=== PATIENT | male | born 1955 | race Caucasian/White ===

== ENCOUNTER 2020-06-01 09:25 | Outpatient (REF) | payer MEDICARE, MEDICAID, SELFPAY ==
--- NOTE | 2020-06-01 09:35 | XR_ITS ---
EXAMINATION: XR CERVICAL SPINE CLINICAL INFORMATION: Chronic neck pain. COMPARISON: Cervical spine 08/23/2016 TECHNIQUE: 3 views of the cervical spine were obtained. FINDINGS: There is maintained cervical lordosis. The vertebral heights and alignment is normal. There is loss of C6-C7 disc height with ventral and posterior spondylosis. The disc heights are normal. No visible acute fracture, dislocation or subluxation seen. Mild bilateral narrowing of C4-C5 and C6-C7 neural foramina is noted. Mild bilateral facet joint hypertrophy slightly greater than right is noted from C3-C4 through C6-C7 disc levels. The prevertebral soft tissues are normal. XR/XR cervical spine 4V IMPRESSION: Generalized facet joint arthropathy mainly in the right side from C3-C4 through C6-C7 disc levels. There is bilateral narrowing of neural foramina. There are degenerative disc changes with spondylosis at C6-C7 disc level. These findings have significantly progressed since 2017. The neural foraminal narrowing is new. No acute fracture or dislocation seen.
== END 2020-06-01 09:26 | disposition home or self-care (01) ==
LOC: HO.XRAY 09:25
PROVIDERS: PCP Nurse Practitioner Family; Visit Provider Psychiatry & Neurology Neurology
DX: M54.2 Cervicalgia (principal)
CPT/HCPCS: 72050

== ENCOUNTER 2020-12-11 12:23 | Outpatient (REF) | payer MEDICARE, SELFPAY ==
--- NOTE | ~2020-12-11 | XR_ITS ---
EXAMINATION: XR KNEE, RIGHT CLINICAL INFORMATION: Pain right knee COMPARISON: None TECHNIQUE: Four views of the right knee. FINDINGS: Mild loss of tricompartment joint space with moderate superior patellar enthesophytes. There is mild suprapatellar joint effusion. No bony erosive changes, acute fracture or dislocation seen. XR/XR knee RT 4V IMPRESSION: Possible joint effusion. No visible acute fracture or dislocation seen. Moderate anterior superior patellar enthesophyte. No visible acute fracture or dislocation seen.
== END 2020-12-11 12:24 | disposition home or self-care (01) ==
LOC: HO.XRAY 12:23
PROVIDERS: PCP Family Medicine; Visit Provider Family Medicine
DX: M25.561 Pain in right knee (principal)
CPT/HCPCS: 73564

== ENCOUNTER 2021-01-25 10:09 | Emergency (ER) | payer MEDICARE, SELFPAY ==
--- NOTE | ~2021-01-25 | CT_ITS ---
EXAMINATION: CT ABDOMEN AND PELVIS WITHOUT CONTRAST CLINICAL INFORMATION: Abdominal pain. COMPARISON: None TECHNIQUE: Multidetector volumetric imaging was performed from the superior aspect of the liver through the pubic symphysis. Sagittal and coronal reformatted images were obtained on the technologist's workstation. This CT examination was performed using dose optimization techniques as appropriate, variously including the following: *Automated exposure control *Adjustment of mA and/or kV according to patient size (this includes techniques or standardized protocols for targeted exams where dose is matched to indication/reason for exam; i.e. extremities or head) *Use of iterative reconstruction technique DLP: 427 mGy-cm FINDINGS: LUNG BASES: The visualized lung bases are unremarkable. LIVER, GALLBLADDER, AND BILIARY TREE: The liver is normal in size, shape, and attenuation. There is a central calcification in the liver. No other focal hepatic lesion or biliary ductal dilatation is present. The gallbladder is unremarkable with no evidence of radiopaque gallstones, gallbladder wall thickening, or obvious pericholecystic inflammatory changes. PANCREAS: Unremarkable. SPLEEN: Unremarkable. ADRENAL GLANDS: Unremarkable. KIDNEYS AND URETERS: The kidneys are normal in size, shape, and attenuation. No hydronephrosis, hydroureter, or calculi seen. No perinephric stranding. BLADDER: The bladder is not optimally distended. There may be diffuse bladder wall thickening. GASTROINTESTINAL TRACT: There is diverticulosis of the colon. There is mild wall thickening of the distal colon and rectum questionable for proctocolitis. There is no evidence of obstruction. The appendix is unremarkable. There is an esophageal hernia. ABDOMINAL WALL: There is a left inguinal hernia containing fat. There is fat in the right inguinal canal. There may be a small umbilical hernia containing fat. LYMPH NODES: Normal. VASCULAR: Unremarkable. PELVIC VISCERA: The prostate gland is enlarged. OSSEOUS STRUCTURES: There are degenerative changes of the spine. There are several small nonspecific sclerotic densities in the bilateral proximal femurs. CT/CT abdomen pelvis wo con IMPRESSION: Wall thickening of the distal colon and rectum questionable for mild proctocolitis. Diverticulosis. Enlarged prostate gland. Question mild diffuse bladder wall thickening. Esophageal hernia.
[2021-01-25 10:53] VITALS: BP 119/70; PULSE 78; RESP 18; TEMP 36.7; O2SAT 98; BMI 26.5
--- NOTE | 2021-01-25 12:13 | ED.ABDPAIN ---
HPI - Abdominal Pain General Chief Complaint: Abdominal Pain Stated Complaint: stomach pain Time Seen by Provider: 01/25/21 12:12 Source: patient and collection administrator Mode of arrival: ambulatory Limitations: no limitations History of Present Illness HPI narrative: 66-year-old male came in for evaluation of abdominal pain. Abdominal pains started 2 days ago, described as diffuse abdominal pain but mostly in the mid abdomen, pain is constant for 2 days, described as moderate 6/10, dull aching pain, no alleviating factors, no relieving factor, no other associated symptoms with the pain no nausea, no vomiting, small bowel movement this morning with loose stool, decreased appetite and decreased p.o. intake. Never had similar pain in the past, did not eat a suspected food to start the pain. Related Data Previous Rx's Medication Instructions Recorded ciprofloxacin HCl 250 mg tablet 250 mg PO BID #14 tab 01/25/21 (Cipro) ibuprofen 400 mg tablet 400 mg PO Q8H PRN #30 tab 01/25/21 metronidazole 500 mg tablet 500 mg PO BID #14 tab 01/25/21 (Flagyl) Allergies Allergy/AdvReac Type Severity Reaction Status Date / Time No Known Allergies Allergy Unverified 03/12/20 17:04 [No Known Allergies*] penicillin Allergy Unknown Uncoded 11/26/18 00:00 sulfa Allergy Unknown Uncoded 11/26/18 00:00 Review of Systems Review of Systems All other systems are reviewed and are negative Constitutional: Reports as per HPI and Reports no additional constitutional complaints Eyes: Reports as per HPI and Reports no additional eye complaints Reports system reviewed and no additional complaints, except as documented Cardiovascular: Reports as per HPI and Reports no additional cardiovascular complaints Respiratory: Reports as per HPI and Reports no additional respiratory complaints Gastrointestinal: Reports as per HPI and Reports no additional gastrointestinal complaints Genitourinary: Reports no additional female genitourinary complaints Musculoskeletal: Reports no additional musculoskeletal complaints Skin/Breast: Reports system reviewed and no additional complaints, except as docu Psychiatric: Reports no additional psychiatric complaints Endocrine: Reports no additional endocrine complaints Hematologic/Lymphatic: Reports no additional hematologic/lymphatic complaints Allergic/Immunologic: Reports no additional allergic/immunologic complaints Reports system reviewed and no additional complaints, except as documented and Reports Abnormal speech present Physical Exam Vital Signs: Vital Signs: Last Vital Signs Temp 98.5 F 01/25/21 12:16 Pulse 87 01/25/21 12:16 Resp 14 08/02/21 12:16 BP 150/83 H 01/25/21 12:16 Pulse Ox 97 01/25/21 12:16 Body Mass Index 26.5 Vital signs have been reviewed as appeared to be correct. Blood pressure normal. Heart rate normal. Respiration rate normal. Temperature normal. Oxygen saturation normal. Appearance: Alert. Oriented X3. No acute distress. Head: Normal external exam. Normocephalic. Atraumatic. No Golden signs noted. No raccoon eyes noted Eyes: PERRLA. EOMI. Conjunctiva and sclera normal. Eyelids normal. ENT: TM's Normal. Pharynx normal. Uvula midline. Moist mucous membranes. No trismus noted. No drooling noted. No muffled voice noted. Neck: Normal inspection. Neck supple. FROM. No adenopathy. Thyroid Normal. No meningeal signs. No neck mass noted. CVS: Normal heart rate and rhythm. Heart sound normal. No murmurs noted. Pulses normal throughout. Respiratory: No respiratory distress. Painless inspiration. Breath sounds normal. No wheezes/rales/rhonchi noted. Chest nontender. No accessory muscle usage noted or decreased air movement noted. Abdomen: Soft, mild mid abdominal tenderness, rebound tenderness, no guarding. Bowel sounds normal in all 4 quadrants. No distention noted. No organomegaly noted. No visible injury noted. Back: No CVA tenderness. Full range of motion noted. Skin: Skin warm and dry. Normal skin color. Normal skin turgor. No rashes/lesions/lacerations noted. Extremities: No lower extremity edema. Extremities exhibit normal range of motion. Extremities nontender. Neuro: Oriented X 3. No motor deficit. No sensory deficit. Reflexes normal. Course Course Course Narrative: Assessment and plan. 66-year-old male came in with an abdominal pain for the last few days, CT is consistent with proctocolitis, no abscess, no other acute pathology on CT scan, unremarkable labs. As discussed with the patient we will start the patient on short course of NSAIDs, 7 days worth of antibiotic, patient was instructed to modify his diet to a clear diet and avoid spicy, fried food. And follow-up with GI. MDM - Abdominal Pain Medical Records Attestation: I reviewed the patient's medical records. Lab Data Attestation: I reviewed the patient's lab results. Result diagrams: 01/25/21 12:28 01/25/21 12:28 Labs: Lab Results 01/25/21 01/25/21 01/25/21 Range/Units 12:25 12:28 12:28 WBC 6.7 (4.8-10.8) X10*3/uL RBC 4.84 (4.60-5.80) X10*6/uL Hgb 14.1 (14.0-18.0) g/dl Hct 41.7 L (42-52) % MCV 86.2 (80-98) fL MCH 29.1 (27.0-33.0) pg MCHC 33.8 (31.0-36.0) g/dl RDW 13.5 (11.0-16.0) % Plt Count 229 (160-400) X10*3/uL MPV 9.8 (9.4-12.4) fL Immature Gran % (Auto) 0.2 (0.0-0.4) % Neut % (Auto) 71.2 (45-73) % Lymph % (Auto) 20.5 (20-40) % [place] % (Auto) 7.4 (2-11) % Eos % (Auto) 0.5 (0-4) % Baso % (Auto) 0.2 (0-2) % Lymph # (Auto) 1.4 (1.2-4.9) X10*3/uL [place] # (Auto) 0.5 (0.1-1.2) X10*3/uL Eos # (Auto) 0.0 (0.0-0.4) X10*3/uL Baso # (Auto) 0.0 (0.0-0.2) X10*3/uL Abs Immat Gran (auto) 0.01 (0.00-0.03) X10*3/uL Absolute Neuts (auto) 4.8 (2.0-8.3) X10*3/uL Absolute Nucleated RBC 0.000 (0.0-0.012) X10*3/uL Nucleated RBC % (auto) 0.0 (0.0-0.2) /100WBC Sodium 140 (135-145) mmol/L Potassium 4.6 (3.3-5.1) mmol/L Chloride 103 (96-108) mmol/L Carbon Dioxide 26 (22-29) mmol/L Anion Gap 16 (12-20) BUN 11 (9-16) mg/dL Creatinine 1.13 (0.5-1.4) mg/dL Estim Creat Clear Calc 51.7 Estimated GFR > 60 Random Glucose 115 (60-115) mg/dL Calcium 10.3 H (8.4-10.2) mg/dL Total Bilirubin 0.7 (0.0-1.0) mg/dL Direct Bilirubin 0.3 (0.0-0.5) mg/dL AST 26 (5-37) U/L ALT 34 (0-40) U/L Alkaline Phosphatase 110 (39-117) U/L Total Protein 8.5 H (6.5-8.0) g/dL Albumin 4.8 (3.5-5.0) g/dL Lipase 14 (8-78) U/L Urine Color YELLOW Urine Appearance CLEAR Urine pH 8.0 (5.0-8.0) Ur Specific [place] 1.015 (1.005-1.025) Urine Protein 1+ H (NEG-TRACE) MG/DL Urine Glucose (UA) NEG (NEG) MG/DL Urine Ketones 15 (NEG) MG/DL Urine Blood NEG (NEG) Urine Nitrite NEG (NEG) Ur Leukocyte Esterase NEG (NEG) Urine RBC 0-2 (0) /HPF Urine WBC 0-2 (0-4) /HPF Ur Squamous Epith Cells NONE /LPF Calcium Phosphate Cryst TRACE /LPF Urine Bacteria NONE /LPF Urine Mucus TRACE /LPF Imaging Data CT scan - abdomen: Radiologist's impression: Wall thickening of the distal colon and rectum questionable for mild proctocolitis. Diverticulosis. Enlarged prostate gland. Question mild diffuse bladder wall thickening. Esophageal hernia. Discharge Plan Discharge Clinical Impression: Colitis Patient Disposition: Home, Self-Care Instructions: Colitis (ED) Prescriptions: New ibuprofen 400 mg tablet 400 mg PO Q8H PRN (Reason: pain) Qty: 30 RF: 0 ciprofloxacin HCl [Cipro] 250 mg tablet 250 mg PO BID Qty: 14 RF: 0 metronidazole [Flagyl] 500 mg tablet 500 mg PO BID Qty: 14 RF: 0 Referrals: Javon Chauhan MD [Physician] - 2 days [facility], [facility] Past Medical History Medical History Anxiety Back pain Depressed Erectile dysfunction HLD (hyperlipidemia) HTN (hypertension) Social History Social History Advance Directives: No Advance Directives Information Provided: Yes
[2021-01-25 12:16] VITALS: BP 150/83; PULSE 87; RESP 14; TEMP 36.9; O2SAT 97
[2021-01-25 12:32] LABS: MANUAL DIFF FLAG NO
[2021-01-25 12:34] LABS: Basophils Percent Auto 0.2 % (0-2); Eosinophils Percent Auto 0.5 % (0-4); Hematocrit 41.7 % (42-52); Hemoglobin 14.1 g/dl (14.0-18.0); Imm Gran Abs Auto 0.01 X10*3/uL (0.00-0.03); Imm Gran Pct Auto 0.2 % (0.0-0.4); Lymphocytes Absolute Auto 1.4 X10*3/uL (1.2-4.9); Lymphocytes Percent Auto 20.5 % (20-40); Mean Corpuscular HGB Conc 33.8 g/dl (31.0-36.0); Mean Corpuscular Hemoglobin 29.1 pg (27.0-33.0); Mean Corpuscular Volume 86.2 fL (80-98); Mean Platelet Volume 9.8 fL (9.4-12.4); Monocytes Absolute Auto 0.5 X10*3/uL (0.1-1.2); Monocytes Percent Auto 7.4 % (2-11); Neutrophils Absolute Auto 4.8 X10*3/uL (2.0-8.3); Neutrophils Percent Auto 71.2 % (45-73); Platelet Count 229 X10*3/uL (160-400); Red Blood Count 4.84 X10*6/uL (4.60-5.80); Red Cell Distribution Width 13.5 % (11.0-16.0); White Blood Count 6.7 X10*3/uL (4.8-10.8)
[2021-01-25] MEDS: 0.9 % Sodium Chloride 1,000 ML 999 ML IVCONT (12:42)
[2021-01-25 12:46] LABS: Glucose Urine UA NEG (NEG); Leukocyte Esterase Urine NEG (NEG); Nitrite Urine NEG (NEG); Specific Gravity - Urine 1.015 (1.005-1.025); UACC Culture Trigger NO; Urine Blood NEG (NEG); Urine Ketones 15 MG/DL (NEG); Urine Protein 1+ MG/DL (NEG-TRACE)
[2021-01-25 12:50] LABS: Appearance Urine CLEAR; Color Urine YELLOW
[2021-01-25 13:00] LABS: RBC Urine 0-2 /HPF (0); WBC Urine 0-2 /HPF (0-4)
[2021-01-25 13:01] LABS: Calcium Phosphate Crystals Ur TRACE /LPF; Mucus Urine TRACE /LPF
[2021-01-25 13:10] LABS: Alanine Aminotransferase 34 U/L (0-40); Albumin Level 4.8 g/dL (3.5-5.0); Alkaline Phosphatase 110 U/L (39-117); Anion Gap 16 (12-20); Aspartate Amino Transferase 26 U/L (5-37); Bilirubin Direct 0.3 mg/dL (0.0-0.5); Bilirubin Total 0.7 mg/dL (0.0-1.0); Blood Urea Nitrogen 11 mg/dL (9-16); Calcium 10.3 mg/dL (8.4-10.2); Carbon Dioxide 26 mmol/L (22-29); Chloride 103 mmol/L (96-108); Creatinine Clr Calc Pharmacy 51.7; Estimated Glomerular Filt Rate > 60; Glucose Random 115 mg/dL (60-115); Lipase 14 U/L (8-78); Potassium 4.6 mmol/L (3.3-5.1); Sodium 140 mmol/L (135-145); Total Protein 8.5 g/dL (6.5-8.0)
== END 2021-01-25 14:47 | disposition home or self-care (01) ==
PROVIDERS: Emergency Provider Emergency Medicine; PCP Family Medicine
DX: K52.9 Noninfective gastroenteritis and colitis, unspecified (principal); I10 Essential (primary) hypertension; E78.5 Hyperlipidemia, unspecified
CPT/HCPCS: 36415; 74176; 80048; 80076; 81001; 83690; 85025; 96360; 99283; 99284

== ENCOUNTER 2022-01-10 17:05 | Emergency (ER) | payer MEDICARE, SELFPAY ==
[2022-01-10 17:07] VITALS: BP 159/76; PULSE 79; RESP 16; TEMP 36.7; O2SAT 99; BMI 27.1
== END 2022-01-10 20:42 | disposition left against medical advice (07) ==
PROVIDERS: Emergency Provider Emergency Medicine; PCP General Practice
DX: K57.32 Diverticulitis of large intestine without perforation or abscess without bleeding (principal)
CPT/HCPCS: 99281; 99282

== ENCOUNTER 2022-01-11 10:33 | Emergency (ER) | payer MEDICARE, SELFPAY ==
--- NOTE | ~2022-01-11 | CT_ITS ---
EXAMINATION: CT ABDOMEN AND PELVIS WITH CONTRAST CLINICAL INFORMATION: Abdominal pain COMPARISON: CT abdomen pelvis 01/25/2021 TECHNIQUE: Multidetector volumetric images were obtained from the superior aspect of the liver through the pubic symphysis following administration 85 mL of Omnipaque 350 intravenous contrast. Sagittal and coronal reformatted images were obtained on the technologist's workstation. Oral contrast: No This CT examination was performed using dose optimization techniques as appropriate, variously including the following: *Automated exposure control *Adjustment of mA and/or kV according to patient size (this includes techniques or standardized protocols for targeted exams where dose is matched to indication/reason for exam; i.e. extremities or head) *Use of iterative reconstruction technique DLP: 460 mGy-cm FINDINGS: LUNG BASES: Unremarkable. ABDOMINAL AND PELVIC WALL: Unremarkable. LIVER AND BILIARY TREE: Calcified granuloma in the liver. GALLBLADDER: Fundal adenomyomatosis of the gallbladder. PANCREAS: Unremarkable. SPLEEN: Unremarkable. ADRENAL GLANDS: Unremarkable. KIDNEYS AND URETERS: Subcentimeter renal hypodensities too small to characterize. GASTROINTESTINAL TRACT: Moderate hiatal hernia. Circumferential soft tissue thickening of the distal esophagus. Colonic diverticulosis without evidence of diverticulitis. Normal appendix. VASCULAR: Unremarkable. LYMPH NODES/PERITONEUM: No lymphadenopathy. FREE FLUID: None. BLADDER: There is asymmetric appearance of bladder wall thickening along the anterior bladder wall measuring up to 1.1 cm in thickness. PELVIC VISCERA: Prostate is mildly enlarged. OSSEOUS STRUCTURES: Similar appearance of cortical thickening and trabeculation the pelvis suggestive of Paget's disease. CT/CT abdomen pelvis w con IMPRESSION: Bladder wall is asymmetrically thickened anteriorly measuring up to 1.1 cm in thickness, which although could be seen in the setting of cystitis, recommend urologic evaluation given the wall thickening is asymmetric to exclude any discrete mucosal lesion. Moderate hiatal hernia with circumferential thickening of the distal esophagus, which can be seen in the setting of reflux or esophagitis.
[2022-01-11 12:51] VITALS: BP 147/74; PULSE 66; RESP 18; TEMP 36.3; O2SAT 98; BMI 30.1
[2022-01-11 13:55] LABS: MANUAL DIFF FLAG NO
[2022-01-11 14:01] LABS: Basophils Percent Auto 0.4 % (0-2); Eosinophils Absolute Auto 0.2 X10*3/uL (0.0-0.4); Eosinophils Percent Auto 3.7 % (0-4); Hematocrit 40.4 % (42.0-52.0); Hemoglobin 13.5 g/dl (14.0-18.0); Imm Gran Abs Auto 0.01 X10*3/uL (0.00-0.03); Imm Gran Pct Auto 0.2 % (0.0-0.4); Lymphocytes Percent Auto 36.3 % (20-40); Mean Corpuscular HGB Conc 33.4 g/dl (31.0-36.0); Mean Corpuscular Hemoglobin 29.1 pg (27.0-33.0); Mean Corpuscular Volume 87.1 fL (80.0-98.0); Mean Platelet Volume 9.8 fL (9.4-12.4); Monocytes Absolute Auto 0.6 X10*3/uL (0.1-1.2); Monocytes Percent Auto 11.9 % (2-11); Neutrophils Absolute Auto 2.6 x10*3/uL (2.0-8.3); Neutrophils Percent Auto 47.5 % (45-73); Platelet Count 285 X10*3/uL (160-400); Red Blood Count 4.64 X10*6/uL (4.60-5.80); White Blood Count 5.4 X10*3/uL (4.8-10.8)
[2022-01-11 14:15] LABS: Anion Gap 8 (12-20); Blood Urea Nitrogen 18 mg/dL (9-16); Calcium 9.4 mg/dL (8.4-10.2); Carbon Dioxide 30 mmol/L (22-29); Chloride 100 mmol/L (96-108); Creatinine Clr Calc Pharmacy 65.2; Estimated Glomerular Filt Rate > 60; Glucose Random 116 mg/dL (60-115); Potassium 4.3 mmol/L (3.3-5.1); Sodium 134 mmol/L (135-145)
--- NOTE | 2022-01-11 19:01 | ED.ABDPAIN ---
HPI - Abdominal Pain General Chief Complaint: Abdominal Pain Stated Complaint: Diverticulitis sent from [facility] Source: patient Mode of arrival: ambulatory Limitations: no limitations History of Present Illness HPI narrative: 67-year-old male presents for evaluation of abdominal pain that he has had for approximately 10 days. He was evaluated at an urgent care and then referred to the emergency department. He states the abdomen pain is an aching diffuse pain. He does have a history of colitis and states that this pain feels the same. He does not report chest pain or pressure, palpitations, fevers, chills, abdominal distention, dysuria, hematuria, nausea, vomiting fevers or chills. MD elicited complaint: abdominal pain Pertinent past history: diverticulitis Onset (ago): day(s) (10) Pain Consistency: constant Location: diffuse Severity: moderate Pain scale (0-10): 8 Quality: aching Migration to: no migration Exacerbating factors: movement Relieving factors: nothing Context: history of similar episodes Associated symptoms: denies other symptoms Related Data Previous Rx's Medication Instructions Recorded ciprofloxacin HCl 250 mg tablet 250 mg PO BID #14 tabs 01/25/21 (Cipro) ibuprofen 400 mg tablet 400 mg PO Q8H PRN pain #30 tabs 01/25/21 metronidazole 500 mg tablet 500 mg PO BID #14 tabs 01/25/21 (Flagyl) famotidine 20 mg tablet (Acid 20 mg PO BID 30 days #60 tabs 01/12/22 Controller) Allergies Allergy/AdvReac Type Severity Reaction Status Date / Time morphine AdvReac Vomiting Verified 01/11/22 12:51 penicillin Allergy Unknown Unknown Uncoded 01/11/22 12:50 sulfa Allergy Unknown Unknown Uncoded 01/11/22 12:50 Review of Systems Review of Systems Constitutional: No Weight loss, No Fever, No Chills, No Night Sweats, No Fatigue, No Malaise ENT/Mouth: No Hearing loss, No Ear Pain, No Nasal Congestion, No Sinus Pain, No Hoarseness, No sore throat, No Rhinorrhea, No Swallowing Difficulty Eyes: No Eye Pain, No Swelling, No Redness, No Foreign Body, No Discharge, No Vision Changes Cardiovascular: No Chest Pain, No SOB, No Dyspnea on Exertion, No Orthopnea, No Edema, No Palpitations Respiratory: No Cough, No Sputum, No Wheezing, No Smoke Exposure, No Dyspnea Gastrointestinal: No Nausea, now Vomiting, no Diarrhea, positive abdominal Pain, No Hematochezia, No Melena Genitourinary: no irregular bleeding, No Dysuria, No Urinary Frequency, No Hematuria, No Urinary Incontinence, No Urgency, No Flank Pain, No Urinary Flow Changes, No Hesitancy Musculoskeletal: No joint pain, No Myalgias, No Joint Swelling Skin: No Skin Lesions, No rash Neuro: No Weakness, No Numbness, No Paresthesias, No Loss of Consciousness, No Dizziness, No Headache Psych: No Anxiety/Panic, No Depression, No SI/HI/AH/VH, No Social Issues Heme/Lymph: No Bruising, No Bleeding,No Lymphadenopathy Endocrine: No Polyuria, No Polydipsia, No Temperature Intolerance Yes all other systems are reviewed and are negative [facility] Past Medical History Attestation statement: The following information was validated with the patient. Source: old records reviewed Medical History Anxiety Back pain Depressed Erectile dysfunction HLD (hyperlipidemia) HTN (hypertension) Social History Social History Advance Directives: No Advance Directives Information Provided: Yes Physical Exam ED Vital Signs: Vital Signs - 24 hr 01/11/22 12:51 01/11/22 20:38 01/11/22 23:18 Temperature 97.3 F Pulse Rate 66 67 61 Respiratory Rate 18 16 18 Blood Pressure 147/74 H 134/76 161/82 H Pulse Oximetry 98 98 97 Oxygen Delivery Method Room Air BMI result Body Mass Index 30.1 Appearance: Alert. Oriented X3. Moderate distress. Eyes: Pupils equal, round and reactive to light. ENT: Pharynx normal. Neck: Normal inspection. Neck supple. CVS: Normal heart rate and rhythm. Pulses normal. Respiratory: No respiratory distress. Breath sounds normal. Abdomen: Soft and diffusely tender to palpation. Skin: Skin warm and dry. Normal skin color. Normal skin turgor. Extremities: No lower extremity edema. Gait well-balanced well coordinated. Neuro: No motor deficit. No sensory deficit. Cranial nerves 2-12 intact. Course Course Course Narrative: 67-year-old male presents to the emergency department from urgent care for evaluation of diffuse abdominal pain that started approximately 10 days ago. Patient has a history of diverticulitis, colitis and states that this pain feels the same. He has been able to eat and drink without difficulty, but feels diffuse abdominal tenderness and is unable to get comfortable. Labs drawn while patient was in the emergency department waiting room. H&H 13.5/40.4 which is unremarkable, sodium 134, BUN 18, will give 1 L of fluid for resuscitation for mild dehydration. Will order CT scan of abdomen pelvis with contrast as patient does have history of diverticulitis and has had 10 days of abdominal pain, has diffuse tenderness to minimal palpation. 20:15 CT abdomen still pending. Patient states that the Dilaudid was affective. L bolus complete. 22:04 CT scan abdomen pelvis still pending results. 23:00 CT scan indicates a trabeculated bladder with bladder wall thickening, hiatal hernia with inflammation consistent with esophagitis. Urinalysis ordered at this time. Urinalysis is negative. Plan of care is to discharge home with Pepcid and referral to Gastroenterology and Urology. Patient's daughter utilized as soda flaker per patient request. Google translate utilized for discharge instructions. Patient verbalized understanding of and agrees to plan of care discharge home. Verbalized understanding of signs and symptoms indicating need for emergent intervention. MDM - Abdominal Pain Differential Diagnosis Differential diagnosis: Likely abdominal pain, acute appendicitis, bowel perforation, diverticulitis, gastroenteritis, gastritis, pancreatitis and small bowel obstruction Medical Records Attestation: I reviewed the patient's medical records. Lab Data Attestation: I reviewed the patient's lab results. Result diagrams: 01/11/22 13:50 01/11/22 13:50 Labs: Lab Results 01/11/22 01/11/22 01/11/22 Range/Units 13:50 13:50 23:17 WBC 5.4 (4.8-10.8) X10*3/uL RBC 4.64 (4.60-5.80) X10*6/uL Hgb 13.5 L (14.0-18.0) g/dl Hct 40.4 L (42.0-52.0) % MCV 87.1 (80.0-98.0) fL MCH 29.1 (27.0-33.0) pg MCHC 33.4 (31.0-36.0) g/dl RDW 14.0 (11.0-16.0) % Plt Count 285 (160-400) X10*3/uL MPV 9.8 (9.4-12.4) fL Immature Gran % (Auto) 0.2 (0.0-0.4) % Neut % (Auto) 47.5 (45-73) % Lymph % (Auto) 36.3 (20-40) % [place] % (Auto) 11.9 H (2-11) % Eos % (Auto) 3.7 (0-4) % Baso % (Auto) 0.4 (0-2) % Lymph # (Auto) 2.0 (1.2-4.9) X10*3/uL [place] # (Auto) 0.6 (0.1-1.2) X10*3/uL Eos # (Auto) 0.2 (0.0-0.4) X10*3/uL Baso # (Auto) 0.0 (0.0-0.2) X10*3/uL Abs Immat Gran (auto) 0.01 (0.00-0.03) X10*3/uL Absolute Neuts (auto) 2.6 (2.0-8.3) x10*3/uL Absolute Nucleated RBC 0.000 (0.0-0.012) X10*3/uL Nucleated RBC % (auto) 0.0 (0.0-0.2) /100WBC Sodium 134 L (135-145) mmol/L Potassium 4.3 (3.3-5.1) mmol/L Chloride 100 (96-108) mmol/L Carbon Dioxide 30 H (22-29) mmol/L Anion Gap 8 L (12-20) BUN 18 H (9-16) mg/dL Creatinine 1.01 (0.5-1.4) mg/dL Estim Creat Clear Calc 65.2 Estimated GFR > 60 Random Glucose 116 H (60-115) mg/dL Calcium 9.4 D (8.4-10.2) mg/dL Urine Color STRAW Urine Appearance CLEAR Urine pH 6.0 (5.0-8.0) Ur Specific [place] <= 1.005 (1.005-1.025) Urine Protein NEG (NEG-TRACE) MG/DL Urine Glucose (UA) NEG (NEG) MG/DL Urine Ketones NEG (NEG) MG/DL Urine Blood NEG (NEG) Urine Nitrite NEG (NEG) Ur Leukocyte Esterase NEG (NEG) Imaging Data CT scan - abdomen: Attestation: I personally reviewed and interpreted this imaging study as follows: Radiologist's impression: FINDINGS: LUNG BASES: Unremarkable.? ABDOMINAL AND PELVIC WALL:? Unremarkable.? LIVER AND BILIARY TREE: Calcified granuloma in the liver.? GALLBLADDER: Fundal adenomyomatosis of the gallbladder.? PANCREAS: Unremarkable.? SPLEEN: Unremarkable.? ADRENAL GLANDS: Unremarkable.? KIDNEYS AND URETERS: Subcentimeter renal hypodensities too small to characterize.? GASTROINTESTINAL TRACT: Moderate hiatal hernia. Circumferential soft tissue thickening of the distal esophagus. Colonic diverticulosis without evidence of diverticulitis.? Normal appendix. VASCULAR: Unremarkable. LYMPH NODES/PERITONEUM: No lymphadenopathy. FREE FLUID: None. BLADDER: There is asymmetric appearance of bladder wall thickening along the anterior bladder wall measuring up to 1.1 cm in thickness.? PELVIC VISCERA: Prostate is mildly enlarged. OSSEOUS STRUCTURES: Similar appearance of cortical thickening and trabeculation the pelvis suggestive of Paget's disease. CT/CT abdomen pelvis w con IMPRESSION: ? Bladder wall is asymmetrically thickened anteriorly measuring up to 1.1 cm in thickness, which although could be seen in the setting of cystitis, recommend urologic evaluation given the wall thickening is asymmetric to exclude any discrete mucosal lesion. ? Moderate hiatal hernia with circumferential thickening of the distal esophagus, which can be seen in the setting of reflux or esophagitis. ? ? Discharge Plan Discharge Clinical Impression: Bladder trabeculation, Cystitis, Esophageal hiatal hernia, Esophagitis Patient Disposition: Home, Self-Care Instructions: Hiatal Hernia (ED), Esophagitis (ED), Interstitial Cystitis (ED) Additional Instructions: Usted fue evaluado por 10 d?as de dolor abdominal. Annabelle valores de laboratorio no tienen nada especial. La tomograf?a computarizada del abdomen muestra deepa vejiga engrosada. Radium necesita ser seguido. Por favor, jaelyn un seguimiento con el Dr. Amin la pr?xima semana. Por favor llame y solicite deepa jordy. Tambi?n tiene deepa hernia de hiato con algo de esofagitis. Boyle Pepcid 20 mg dos veces al d?a. Boyle daphne medicamento hasta que obtenga deepa jordy con Gastroenterolog?a. Lo he referido al Dr. Chauhan. Por favor llame y solicite deepa jordy. Devuelva al departamento de emergencias cualquier s?ntoma nuevo, preocupante o que empeore. You were evaluated for 10 days of abdominal pain. Your lab values are unremarkable. CT scan of the abdomen shows a thickened bladder. This needs to be followed up. Please follow-up with Dr. Amin next week. Please call and request an appointment. You also have a hiatal hernia with some esophagitis. Please take Pepcid 20 mg twice a day. Please take this medication until you obtain an appointment with Gastroenterology. I have referred you to Dr. Chauhan. Please call and request an appointment. Return to the emergency department any new, concerning, or worsening symptoms. Prescriptions: New famotidine [Acid Controller] 20 mg tablet 20 mg PO BID 30 Days Qty: 60 3RF No Action ibuprofen 400 mg tablet 400 mg PO Q8H PRN (Reason: pain) Qty: 30 0RF ciprofloxacin HCl [Cipro] 250 mg tablet 250 mg PO BID Qty: 14 0RF metronidazole [Flagyl] 500 mg tablet 500 mg PO BID Qty: 14 0RF Referrals: Aftab Amin MD [Physician] - (Cystitis and trabeculated bladder) Javon Chauhan MD [Physician] - (Hiatal hernia with esophagitis) Interventions: ED Discharge Assessment Last Done: 01/12/22 00:29 Discharge Date/Time: 01/12/22 00:29
[2022-01-11] MEDS: 0.9 % Sodium Chloride 1,000 ML 999 ML IVCONT (19:14)
[2022-01-11] MEDS: HYDROmorphone HCl 1 MG/ML SYRINGE IVPUSH (19:15)
[2022-01-11] MEDS: ondansetron HCL 4 MG/2 ML VIAL IVPUSH (19:16)
[2022-01-11 20:38] VITALS: BP 134/76; PULSE 67; RESP 16; O2SAT 98
[2022-01-11] MEDS: iohexoL 350 MG/ML 100 ML INFUS..BTL IV (20:54)
[2022-01-11 23:18] VITALS: BP 161/82; PULSE 61; RESP 18; O2SAT 97
[2022-01-11 23:26] LABS: Appearance Urine CLEAR; Color Urine STRAW; Glucose Urine UA NEG (NEG); Leukocyte Esterase Urine NEG (NEG); Nitrite Urine NEG (NEG); Specific Gravity - Urine <= 1.005 (1.005-1.025); Urine Blood NEG (NEG); Urine Ketones NEG (NEG); Urine Protein NEG (NEG-TRACE)
== END 2022-01-12 00:29 | disposition home or self-care (01) ==
PROVIDERS: Nurse Practitioner Family; Emergency Provider Internal Medicine; PCP General Practice
DX: N32.89 Other specified disorders of bladder (principal); N30.90 Cystitis, unspecified without hematuria; K20.90 Esophagitis, unspecified without bleeding; K44.9 Diaphragmatic hernia without obstruction or gangrene; E86.0 Dehydration; R10.9 Unspecified abdominal pain; I10 Essential (primary) hypertension; E78.5 Hyperlipidemia, unspecified
CPT/HCPCS: 36415; 74177; 80048; 81003; 85025; 96361; 96374; 96375; 99284; J1170; J2405; Q9967

== ENCOUNTER → 2022-01-13 10:58 | Outpatient (BNVA) | payer MEDICARE, SELFPAY | PROVIDERS: PCP General Practice; Visit Provider Physician Assistant | DX: Z01.818 Encounter for other preprocedural examination (principal); R13.10 Dysphagia, unspecified; K21.9 Gastro-esophageal reflux disease without esophagitis; R93.5 Abnormal findings on diagnostic imaging of other abdominal regions, including retroperitoneum | CPT/HCPCS: 99212 ==

== ENCOUNTER 2022-01-18 15:42 | Outpatient (REF) | payer MEDICARE, SELFPAY ==
[2022-01-19 15:42] LABS: H Pylori Breath Test Negative (Negative)
== END 2022-01-18 15:43 | disposition home or self-care (01) ==
LOC: HO.LNP 15:42
PROVIDERS: Visit Provider Physician Assistant
DX: A04.8 Other specified bacterial intestinal infections (principal)
CPT/HCPCS: 83013

== ENCOUNTER 2022-05-17 07:41 | Day surgery (SDC) | payer MEDICARE, SELFPAY ==
[2022-05-10 14:36] VITALS: BMI 30.1
--- NOTE | 2022-05-16 12:41 | P.CONAN_ITS ---
Documented by User: Dona Dumont NP 05/16/22 12:41 HPI - Anesthesia Eval Consult details Narrative: 67yo M for Upper Endoscopy and Colonoscopy PMF Active Problems Active Problems: All Active Problems (Updated 05/10/22 @ 14:36 by Keisha Wdae, ROSALINE) Acid reflux (Acute) Dysphagia (Acute) Encounter for screening colonoscopy (Acute) Abnormal CT of the abdomen (Acute) Past Medical History Medical History (Updated 05/10/22 @ 14:36 by Keisha Wade, ROSALINE) Anxiety Back pain Depressed Erectile dysfunction HLD (hyperlipidemia) HTN (hypertension) Memory problem Surgical History Surgical History (Updated 05/10/22 @ 14:24 by Keisha Wade, ROSALINE) Hx of colonoscopy Hx of inguinal hernia repair Social History Social History Are you a primary animal care taker to a significant other at home: No Do you presently have visiting nurse or other home services: Yes (daughter, ENVIRONMENTAL FIELD PROFESSIONAL, VNA) Patient Tobacco Use Status: Former Tobacco user Quit Date: 2001 Tobacco use type: Cigarette Use of substances other than those prescribed or required for medical reasons: No Are you DNR?: No Advance Directives: No Advance Directives Information Provided: Yes Advance Directives on File: No Recently lost weight without trying: No Nutrition Risks: No Nutritional Risk Poor oral hygiene: No (upper partial) Meds Allergies Allergy/AdvReac Type Severity Reaction Status Date / Time morphine AdvReac Intermediate Vomiting Verified 05/10/22 14:25 penicillin Allergy Intermediate Hives Uncoded 05/10/22 14:25 sulfa Allergy Intermediate Hives Uncoded 05/10/22 14:25 Home Medications Medication Instructions Recorded Confirmed Last Taken Type aspirin 81 mg tablet,delayed 81 mg PO DAILY 01/21/22 05/10/22 05/14/22 History release atorvastatin 20 mg tablet 20 mg PO DAILY 01/21/22 05/10/22 Unknown History donepezil 10 mg tablet 10 mg PO QPM 01/21/22 05/10/22 Unknown History oxycodone-acetaminophen 5 mg-325 1 tab PO Q12H PRN Pain 01/21/22 05/10/22 Unknown History mg tablet diclofenac sodium 75 mg 75 mg PO BID 02/14/22 05/10/22 Unknown History tablet,delayed release eszopiclone 3 mg tablet 3 mg PO BEDTIME PRN Insomnia 02/14/22 05/10/22 Unknown History amlodipine 10 mg tablet 1 tab PO QAM 05/10/22 05/10/22 Unknown History atenolol 25 mg tablet 1 tab PO QPM 05/10/22 05/10/22 Unknown History cetirizine 10 mg tablet 1 tab PO DAILY 05/10/22 05/10/22 Unknown History clonazepam 0.5 mg tablet (Klonopin) 0.5 tab PO DAILY anxiety 05/10/22 05/10/22 Unknown History fluticasone propionate 110 2 puff inhalation BID 05/10/22 05/10/22 Unknown History mcg/actuation HFA aerosol inhaler (Flovent HFA) fluticasone propionate 50 1 spray intranasal BID 05/10/22 05/10/22 Unknown History mcg/actuation nasal spray,suspension ibuprofen 600 mg tablet 1 tab PO BID PRN pain 05/10/22 05/10/22 Unknown History losartan 100 mg tablet 1 tab PO QAM 05/10/22 05/10/22 Unknown History multivitamin-ferrous 1 tab PO DAILY 05/10/22 05/10/22 Unknown History fumarate-folic acid 18 mg-400 mcg tablet (Certavite-Antioxidant) quetiapine 50 mg tablet 1 tab PO BEDTIME 05/10/22 05/10/22 Unknown History sertraline 100 mg tablet 1.5 tab PO DAILY 05/10/22 05/10/22 Unknown History Exam Exam Date and Time: May 16, 2022 1241 Height,Weight and Vital Signs: Height 5 ft 3 in Weight 77.111 kg Pertinent Lab Results Pertinent Lab Results: Laboratory Tests 01/11/22 01/11/22 13:50 13:50 WBC 5.4 Hgb 13.5 L Hct 40.4 L Plt Count 285 Sodium 134 L Potassium 4.3 Chloride 100 Carbon Dioxide 30 H BUN 18 H Creatinine 1.01 Assessment and Plan Assessment Anesthesia Assessment: Chart Reviewed Documented by User: Ken Vazquez MD 05/17/22 09:12 [facility] Past Medical History Medical History (Updated 05/10/22 @ 14:36 by Keisha Wade, ROSALINE) Anxiety Back pain Depressed Erectile dysfunction HLD (hyperlipidemia) HTN (hypertension) Memory problem Family History Family history of problems with anesthesia: No Surgical History Surgical History (Updated 05/10/22 @ 14:24 by Keisha Wade, ROSALINE) Hx of colonoscopy Hx of inguinal hernia repair History of Problems with Anesthesia: No Social History Social History Are you a primary animal care taker to a significant other at home: No Do you presently have visiting nurse or other home services: Yes (daughter, ENVIRONMENTAL FIELD PROFESSIONAL, VNA) Patient Tobacco Use Status: Former Tobacco user Quit Date: 2001 Tobacco use type: Cigarette Use of substances other than those prescribed or required for medical reasons: No Are you DNR?: No Advance Directives: No Advance Directives Information Provided: Yes Advance Directives on File: No Recently lost weight without trying: No Nutrition Risks: No Nutritional Risk Poor oral hygiene: No (upper partial) Meds Allergies Allergy/AdvReac Type Severity Reaction Status Date / Time morphine AdvReac Intermediate Vomiting Verified 05/10/22 14:25 penicillin Allergy Intermediate Hives Uncoded 05/10/22 14:25 sulfa Allergy Intermediate Hives Uncoded 05/10/22 14:25 Home Medications Medication Instructions Recorded Confirmed Last Taken Type aspirin 81 mg tablet,delayed 81 mg PO DAILY 01/21/22 05/10/22 05/14/22 History release atorvastatin 20 mg tablet 20 mg PO DAILY 01/21/22 05/10/22 Unknown History donepezil 10 mg tablet 10 mg PO QPM 01/21/22 05/10/22 Unknown History oxycodone-acetaminophen 5 mg-325 1 tab PO Q12H PRN Pain 01/21/22 05/10/22 Unkn own History mg tablet diclofenac sodium 75 mg 75 mg PO BID 02/14/22 05/10/22 Unknown History tablet,delayed release eszopiclone 3 mg tablet 3 mg PO BEDTIME PRN Insomnia 02/14/22 05/10/22 Unknown History amlodipine 10 mg tablet 1 tab PO QAM 05/10/22 05/10/22 Unknown History atenolol 25 mg tablet 1 tab PO QPM 05/10/22 05/10/22 Unknown History cetirizine 10 mg tablet 1 tab PO DAILY 05/10/22 05/10/22 Unknown History clonazepam 0.5 mg tablet (Klonopin) 0.5 tab PO DAILY anxiety 05/10/22 05/10/22 Unknown History fluticasone propionate 110 2 puff inhalation BID 05/10/22 05/10/22 Unknown History mcg/actuation HFA aerosol inhaler (Flovent HFA) fluticasone propionate 50 1 spray intranasal BID 05/10/22 05/10/22 Unknown History mcg/actuation nasal spray,suspension ibuprofen 600 mg tablet 1 tab PO BID PRN pain 05/10/22 05/10/22 Unknown History losartan 100 mg tablet 1 tab PO QAM 05/10/22 05/10/22 Unknown History multivitamin-ferrous 1 tab PO DAILY 05/10/22 05/10/22 Unknown History fumarate-folic acid 18 mg-400 mcg tablet (Certavite-Antioxidant) quetiapine 50 mg tablet 1 tab PO BEDTIME 05/10/22 05/10/22 Unknown History sertraline 100 mg tablet 1.5 tab PO DAILY 05/10/22 05/10/22 Unknown History Exam Airway Mallampati Class: II TM Dist: >3cm Neck ROM: Full Denture: Upper and Lower Heart: rrr Lungs: clear Assessment and Plan Final Anesthetic Review Family History of Problems with Anesthesia: No History of Problems with Anesthesia: No NPO: Yes ASA Class: II Final Preanesthetic Review: No Changes in Pt Med Stat, Meds/Allgs Chart Reviewed, Consent Obtained/Reviewed and Anes Risks/Benef Reviewed Patient Risk: Intermediate Procedure Risk: Low Anesthetic Plan Disposition: Standard PACU
[2022-05-17 08:17] VITALS: BP 127/68; PULSE 79; RESP 19; TEMP 36.6; O2SAT 97
[2022-05-17] MEDS: Lactated Ringers 1,000 ML 100 ML IVCONT (08:19)
--- NOTE | 2022-05-17 09:00 | MHC.SHP ---
Pre-Procedural Eval Section A Date of Service: 05/17/22 Section B Chief Complaint: dysphagia,reflux,screening Relevant Family History (Specify if Yes): No Relevant Social History: None Present Medications: see Short Stay Collaborative assessment Medical History: Significant History (Anxiety Back pain Depressed Erectile dysfunction HLD (hyperlipidemia) HTN (hypertension) Memory problem) History of Previous Operations: Relevant previous surgery/procedure and date(s) (Hx of colonoscopy Hx of inguinal hernia repair) Allergies: Allergies Allergy/AdvReac Type Severity Reaction Status Date / Time morphine AdvReac Intermediate Vomiting Verified 05/10/22 14:25 penicillin Allergy Intermediate Hives Uncoded 05/10/22 14:25 sulfa Allergy Intermediate Hives Uncoded 05/10/22 14:25 Review of Systems Sugical H&P ROS: Negative: Constitution, Cardiovascular, Respiratory, Neurological, Psychiatric, Hem-Onc, Allergic/Immunologic, Gastrointestinal, Genitourinary, Musculoskeletal, Integumentary, Endocrine and Eyes/Ears/Nose/Throat Exam Surgical H&P Exam: Normal: HEENT, Normal: Heart, Normal: Lungs, Normal: Extremities, Normal: Abdomen, Normal: Skin and Normal: Neurological Plan Diagnosis/Plan: Unchanged I have reviewed the history and physical and performed a pertinent physical examination on my patient. No changes have occurred unless specified.
--- NOTE | 2022-05-17 09:46 | P.OP_ITS ---
Operative Note Operative Note Date of Service: 05/17/22 Narrative: Operative Information Procedure Description: EGD, Colonoscopy Indication: dysphagia, screening Anesthesia: MAC FLEXIBLE TRANSORAL UPPER GASTROINTESTINAL ENDOSCOPY AND COLONOSCOPY PROCEDURE NOTE UPPER ENDOSCOPY Consent: Indications for the procedure and potential complications of bleeding, perforation, reaction to medications and missed diagnosis were discussed with the patient and informed consent was obtained. Instrument: Olympus GIF H 190 J mid size upper endoscope Monitoring: Vital signs and clinical assessment, continuous EKG monitoring, Pulse oximetry, Carbon Dioxide monitoring and blood pressure monitoring were done throughout the procedure. Procedure: The patient was placed in the left lateral decubitis position and pre-procedure medications were administered and a bite block was placed. The endoscope was inserted into the mouth and advanced under direct vision to the third part of duodenum. A careful inspection was made as the upper endoscope was withdrawn including a retroflexed examination of the proximal stomach; Findings and interventions are described below. Findings: Larynx:normal Esophagus: GE junction at 36 cm, diaphragm hiatus at 40 cm, consistent with 4 cm sliding hiatal hernia, bx taken from distal esophagus, balloon dilation done at LES and UEs to 19 mm, resistance felt but no tears seen Stomach: PAtchy moderate intesity erythema at antrum . Biopsies were obtained. Grade 2 flap valve on retroflexed examination of the cardia. Duodenum: Normal bulb and descending duodenum, Intervention: Biopsies as noted above COLONOSCOPY Instrument: Olympus variable stiffness pediatric scope 190L Colonoscopy Monitoring: Vital signs and clinical assessment, continuous EKG monitoring, Pulse oximetry, Carbon Dioxide monitoring and blood pressure monitoring were done throughout the procedure. Colon withdrawal time was 12 minutes. Procedure: The patient was placed in the left lateral decubitis position and pre-procedure medications were administered. After a digital rectal examination of the ano-rectum, the video colonoscope was inserted into the rectum and advanced through the colon to the cecum/TI. The colonoscope was slowly withdrawn in a retrograde panoramic fashion and the colon mucosa was carefully examined including a retroflexed view of the rectum. Findings and interventions are described below. Procedure Difficulty: Findings: Terminal Ileum-normal Cecum:normal Ascending Colon: normal Transverse Colon -normal Descending Colon: 10-12 mm pedunculated polyp removed with cold snare Sigmoid Colon: normal Rectum: Retroflexion with small internal hemorrhoids, grade I Anorectum - normal Colon preparation: Bradford Bowel Preparation Scale Right colon; 1 Transverse colon: 1-2 Left colon; 1-2 (0 = Unprepared colon segment with mucosa not seen due to solid stool that cannot be cleared. 1 = Portion of mucosa of the colon segment seen, but other areas of the colon segment not well seen due to staining, residual stool and/or opaque liquid. 2 = Minor amount of residual staining, small fragments of stool and/or opaque liquid, but mucosa of colon segment seen well. 3 = Entire mucosa of colon segment seen well with no residual staining, small fragments of stool or opaque liquid) Impression and Post Procedure Diagnosis: Endoscopy Findings: hiatal hernia gastritis Colonoscopy Findings: polyp internal hemorrhoids Plan: Await Pathology results Repeat Colonoscopy in 1-2 years due to fair prep or earlier if clinically indicated High fiber diet leaflet avoid straining at stool, epsom salts and sitz bath, anusol supps or cream GERD precautions, consider surgical referral for hiatal hernia repair, compliance with PPI, maybe increase dose Above findings were reviewed with the patient and relevant handouts were provided if indicated.
[2022-05-17 09:56] VITALS: BP 92/46; PULSE 72; RESP 16; TEMP 36.8; O2SAT 96
[2022-05-17 10:11] VITALS: BP 140/58; PULSE 61; RESP 18; TEMP 36.8; O2SAT 98
== END 2022-05-17 11:01 ==
LOC: HO.SSS 07:41
PROVIDERS: PCP General Practice; Visit Provider Internal Medicine Gastroenterology
PROC: (CPT 45385; principal; 2022-05-17 09:20)
DX: Z12.11 Encounter for screening for malignant neoplasm of colon (principal); D12.4 Benign neoplasm of descending colon; K64.0 First degree hemorrhoids; R13.10 Dysphagia, unspecified; K21.9 Gastro-esophageal reflux disease without esophagitis; I10 Essential (primary) hypertension; K44.9 Diaphragmatic hernia without obstruction or gangrene; Z79.82 Long term (current) use of aspirin; Z79.899 Other long term (current) drug therapy; Z88.0 Allergy status to penicillin; Z88.2 Allergy status to sulfonamides
CPT/HCPCS: 45385; 43249; 43239; 88305; 88342; C1726

== ENCOUNTER → 2022-05-31 12:50 | Outpatient (REF) | payer OTHER, SELFPAY ==
--- NOTE | 2022-05-31 12:54 | CA_ITS ---
Transthoracic Echocardiogram Patient (Last, First, Middle): Eddie Person, Gender: Male Date of : 1955 Age: 67 Procedure Date: 05/31/2022 Procedure Type: Transthoracic Echocardiogram Location: OP Height: 160.02 cm Weight: 83.92 kg BSA: 1.87 m2 Heart Rate: 58 bpm BP: 124 / 60 mmHg [employer] Operator: Referring MD: Phuong Cortes MD Earth Science Technical Officer: Efren Fernández MD Symptoms: R01.1` MURMUR Study Quality: Fair ECG Rhythm: Bradycardia Conclusions: - Essentially normal study Findings Left Ventricle Normal left ventricular size, thickness, and systolic function. The visually estimated ejection fraction is between 60-65%. Diastolic function is normal for age. Right Ventricle Normal right ventricular cavity size and systolic function. Atria Both atria are normal in size. Interatrial shunt cannot be excluded. Aortic Valve Normal aortic valve structure and function. There is no aortic valve stenosis. There is no aortic valve regurgitation. Mitral Valve Normal mitral valve structure and function. There is trace mitral valve regurgitation. There is no mitral valve stenosis. Pulmonic Valve The pulmonic valve is likely normal. There is trace pulmonic valve regurgitation. Tricuspid Valve Normal tricuspid valve structure. There is trace tricuspid valve regurgitation. The right ventricular systolic pressure is normal. The right ventricular systolic pressure is 26 mmHg. Normal right atrial pressure. There is no evidence of pulmonary hypertension. Great Vessels All visible segments of the aorta are normal in size. The pulmonary artery was not well visualized. Venous The inferior vena cava is normal in size and collapses greater than 50% with inspiration. Pericardium/Pleural There is no evidence of pericardial effusion. Recommendations, Care & Conclusions Recommend contrast study to evaluate intracardiac shunting. Measurements 2D Linear Measurements IVSd: 1.17 0.6-0.9/0.6-1.0 cm LVIDd: 4.70 3.9-5.3/4.2-5.9 cm LVIDd Index: 2.51 2.4-3.2/2.2-3.1 cm/m2 LVIDs: 2.64 2.0-3.6 cm LVPWd: 0.92 0.7-1.1 cm LA Diam: 4.00 2.7-3.8/3.0-4.0 cm LAIDs Index: 2.14 1.5-2.3 cm/m2 LV Mass: 217.74 67-162/88-224 g LV Mass Index: 116.44 43-95/49-115 g/m2 LVOT Diam: 2.00 3.0+(-)1.3 cm 2D Systolic Function EF 4C: 62.50 >55% EF 2C: 56.80 >55% EF BiP: 60.20 >55% Mitral Valve MV Pk E: 0.75 MV PK A: 0.66 MV Decel Time: 171.00 E/A: 1.10 E'Lateral: 7.62 E'Medial: 5.87 E/E' Med: 12.80 E/E' Lat: 9.90 PHT: 50.00 MVA PHT: 4.40 Decel [place]: 4.41 Aortic Valve AoV Pk Vu: 1.87 AoV Mn Vu: 1.16 AoV VTI: 0.44 AoV Pk Grad: 14.00 Aov Mn Grad: 7.00 VEL Cont.VTI: 2.64 LVOT LVOT Pk Vu: 1.47 LVOT Mn Vu: 0.99 LVOT VTI: 0.37 LVOT Pk Grad: 9.00 LVOT Mn Grad: 5.00 LVOT Diam: 2.00 LVOT Area: 3.14 Diastolic Function MV Pk E: 0.75 MV Pk A: 0.66 E/A: 1.10 E'Medial: 5.87 E/E' Med: 12.80 E' Laterial: 7.62 E/E' Lat: 9.90 Right Ventricle TAPSE (mm): 28.10 Tricuspid Valve TR Pk Vu: 2.39 TR Pk Grad: 23.00 RA Press: 3.00 RVSP: 26.00 Great Vessels Aorta Sinus of Valsalva: 2.80 2.0-3.5 cm Ao Asc: 2.90 2.1-3.4 cm Pulmonary Valve PV Pk Vu: 0.93 Peak PV Grad: 3.00 Updated in Other Vendor System with Status of Final Efren Fernández MD electronically signed on 06/03/2022 9:00:25 AM with status of Final
== END ==
LOC: HO.CARD 12:50
PROVIDERS: PCP General Practice; Visit Provider General Practice
DX: R01.1 Cardiac murmur, unspecified (principal)
CPT/HCPCS: 93306

== ENCOUNTER → 2022-06-02 11:42 | Outpatient (BNVA) | payer OTHER, SELFPAY | PROVIDERS: PCP General Practice; Referring Provider General Practice; Visit Provider Physician Assistant | DX: D12.6 Benign neoplasm of colon, unspecified (principal); K64.9 Unspecified hemorrhoids; K21.9 Gastro-esophageal reflux disease without esophagitis; K44.9 Diaphragmatic hernia without obstruction or gangrene; Z79.899 Other long term (current) drug therapy; Z98.890 Other specified postprocedural states | CPT/HCPCS: 99212 ==

== ENCOUNTER 2023-03-20 11:46 | Outpatient (REF) | payer OTHER, SELFPAY ==
[2023-03-20 13:01] LABS: MANUAL DIFF FLAG NO
[2023-03-20 13:17] LABS: Basophils Percent Auto 0.4 % (0-2); Eosinophils Percent Auto 0.7 % (0-4); Hematocrit 41.4 % (42.0-52.0); Hemoglobin 13.6 g/dl (14.0-18.0); Imm Gran Abs Auto 0.01 X10*3/uL (0.00-0.03); Imm Gran Pct Auto 0.2 % (0.0-0.4); Lymphocytes Absolute Auto 1.4 X10*3/uL (1.2-4.9); Lymphocytes Percent Auto 25.2 % (20-40); Mean Corpuscular HGB Conc 32.9 g/dl (31.0-36.0); Mean Corpuscular Hemoglobin 28.2 pg (27.0-33.0); Mean Corpuscular Volume 85.7 fL (80.0-98.0); Mean Platelet Volume 10.9 fL (9.4-12.4); Monocytes Absolute Auto 0.3 X10*3/uL (0.1-1.2); Monocytes Percent Auto 6.3 % (2-11); Neutrophils Absolute Auto 3.6 x10*3/uL (2.0-8.3); Neutrophils Percent Auto 67.2 % (45-73); Platelet Count 233 X10*3/uL (160-400); Red Blood Count 4.83 X10*6/uL (4.60-5.80); Red Cell Distribution Width 13.3 % (11.0-16.0); White Blood Count 5.4 X10*3/uL (4.8-10.8)
[2023-03-20 13:34] LABS: Alanine Aminotransferase 38 U/L (0-40); Albumin Level 4.4 g/dL (3.5-5.0); Alkaline Phosphatase 112 U/L (39-117); Anion Gap 13 (12-20); Aspartate Amino Transferase 33 U/L (5-37); Bilirubin Total 0.6 mg/dL (0.0-1.0); Blood Urea Nitrogen 12 mg/dL (9-16); Calcium 9.8 mg/dL (8.4-10.2); Carbon Dioxide 24 mmol/L (22-29); Chloride 107 mmol/L (96-108); Estimated Glomerular Filt Rate > 60; Glucose Random 136 mg/dL (60-115); Sodium 140 mmol/L (135-145); Total Protein 8.3 g/dL (6.5-8.0)
== END 2023-03-20 11:47 | disposition home or self-care (01) ==
LOC: HO.HHCL 11:46
PROVIDERS: Visit Provider Internal Medicine Geriatric Medicine
DX: R10.84 Generalized abdominal pain (principal)
CPT/HCPCS: 36415; 80053; 85025

== ENCOUNTER 2023-04-10 09:18 | Outpatient (REF) | payer OTHER, SELFPAY | END 2023-04-10 09:19 | disposition home or self-care (01) | LOC: HO.HHCL 09:18 | PROVIDERS: Visit Provider Internal Medicine | DX: R10.13 Epigastric pain (principal) | CPT/HCPCS: 87338 ==

== ENCOUNTER 2023-05-23 09:32 | Outpatient (REF) | payer OTHER, SELFPAY ==
[2023-05-23 11:53] LABS: Syphilis Screen Nonreactive (Nonreactive)
[2023-05-23 12:13] LABS: Vitamin B12 836 pg/mL (200-900)
== END 2023-05-23 09:33 | disposition home or self-care (01) ==
LOC: HO.HHCL 09:32
PROVIDERS: Visit Provider General Practice
DX: G62.9 Polyneuropathy, unspecified (principal)
CPT/HCPCS: 36415; 82607; 82746; 86780

== ENCOUNTER 2023-09-07 17:47 | Outpatient (REF) | payer OTHER, SELFPAY ==
[2023-09-07 18:38] LABS: Appearance Urine Clear; Color Urine Yellow; Glucose Urine UA Negative (Negative); Leukocyte Esterase Urine Negative (Negative); Nitrite Urine Negative (Negative); PH 5.5 (5.0-9.0); Specific Gravity - Urine 1.025 (1.005-1.025); Urine Blood Negative (Negative); Urine Ketones Trace mg/dL (Negative); Urine Protein Trace mg/dL (Neg-Trace)
[2023-09-07 18:49] LABS: Bacteria Urine None Seen (None Seen); Hyaline Casts Urine 0-2 /LPF (0-2); RBC Urine 0-2 /HPF (0-2); Squamous Epithelial Cell Urine 0-2 /HPF (0-2); WBC Urine 0-5 /HPF (0-5)
[2023-09-08 12:11] LABS: CT PCR NOT DETECTED (Not Detect.); NG PCR NOT DETECTED (Not Detect.)
== END 2023-09-07 17:48 | disposition home or self-care (01) ==
LOC: HO.HHCLNP 17:47
PROVIDERS: Visit Provider Student in an Organized Health Care Education/Training Program
DX: R30.0 Dysuria (principal)
CPT/HCPCS: 0353U; 81001

== ENCOUNTER 2023-09-18 08:54 | Outpatient (REF) | payer OTHER, SELFPAY ==
[2023-09-18 12:58] LABS: Prostate Specific Antigen 0.97 ng/mL (<0.05-4.0)
== END 2023-09-18 08:55 | disposition home or self-care (01) ==
LOC: HO.HHCL 08:54
PROVIDERS: Visit Provider General Practice
DX: Z12.5 Encounter for screening for malignant neoplasm of prostate (principal)
CPT/HCPCS: 36415; 84153

== ENCOUNTER 2023-09-21 | Outpatient (REF) | payer OTHER, SELFPAY | END 2023-09-21 00:01 | disposition home or self-care (01) | LOC: CF | PROVIDERS: PCP General Practice; Visit Provider Registered Nurse Emergency | DX: R20.2 Paresthesia of skin (principal); M79.601 Pain in right arm; M79.602 Pain in left arm | CPT/HCPCS: 99212 ==

== ENCOUNTER 2023-09-21 09:54 | Outpatient (AMB) | payer OTHER, SELFPAY ==
--- NOTE | 2023-09-21 09:55 | MHC.OFFVIS ---
Intake Vital Signs 09/21/23 10:03 Height 5 ft 3 in Weight 170 lb BMI 30.1 BP 116/60 Blood Pressure Location Lt brachial Position Sitting Pulse 68 Pulse Source Pulse Oximeter Pulse Oximetry (%) 99 Oxygen Delivery Method Room Air Intake Visit Reasons: LEFT SIDE NECK PAIN Intake Note: Pain today 8/10 Medical Care Manager Required: Yes Medical Care Manager Language: [employer]or Grinding Mill Operator Name: Daughter- donavan Accompanied by: Daughter Allergies Penicillins Allergy (Intermediate, Verified 09/21/23 10:02) Hives Sulfa (Sulfonamide Antibiotics) Allergy (Intermediate, Verified 09/21/23 10:02) Hives morphine Adverse Reaction (Intermediate, Verified 09/21/23 10:02) Vomiting HPI HPI Comments History of Present Illness Details Eddie is a very pleasant 60-year-old male presented to the office today, accompanied by his daughter, for evaluation management of his chronic neck pain. Patient is Haitian-speaking, he requested his daughter be present to assist with interpretation. She is also has primary crew car driver. Patient has been suffering with this pain for greater than 4 years, he has been diagnosed with torticollis, treated by Neurology. Pain today is rated as 8/10, right side neck pain due he does endorse some radiation of the pain into the shoulder when he looks to the right. He has a pending EMG in September. He has undergone Botox injections, they caused dysphagia so treatment was stopped. Being prescribed Percocet which is not helping his pain. Has been taking muscle relaxers without improvement of his symptoms. Completed physical therapy and chiropractor greater than 4 years ago, no recent attempts. He has tried heat which provides short-term improvement in his pain Lidocaine patches were not beneficial Patient was evaluated in [place], underwent injections to the cervical spine that did not provide any improvement in symptoms. Pain is worse with movement, palpation In terms of muscle damage condition is described as aching, shooting, burning Pain is negatively impacting patient's enjoyment of life, general activity, mood and recreational activities. Patient's daughter reports that he seems to be more depressed since this has continued for so long. [facility] Medical History Anxiety Back pain Depressed Erectile dysfunction HLD (hyperlipidemia) HTN (hypertension) Memory problem Surgical History History of esophagogastroduodenoscopy (EGD) Hx of colonoscopy Hx of inguinal hernia repair Social History (Updated 09/21/23 @ 10:05 by Nilda Paredes) Are you a primary healthcare manager to a significant other at home: No Do you presently have visiting nurse or other home services: Yes (daughter, TALLOW PUMPER, VNA) Alcohol intake: never Patient Tobacco Use Status: Former Tobacco user Quit Date: 2001 Tobacco use type: Cigarette Review of Systems Const All systems reviewed & are unremarkable except as noted in HPI and below Physical Exam Vital Signs: Last Vital Signs Pulse 68 09/21/23 10:03 BP 116/60 09/21/23 10:03 Pulse Ox 99 09/21/23 10:03 Oxygen Delivery Method Room Air 09/21/23 10:03 BMI result Body Mass Index 30.1 General: awake, alert, oriented. Answers questions appropriately. Fully engaged in examination. Skin: warm, dry, intact HEENT: Normocephalic. Hearing intact. Cardiac: External chest normal in appearance. Respiratory: No cough, audible wheezing or stridor. Abdomen: without gross distension. CS: 10 degrees left lateral tilt with marked contralateral rotation at rest. limited right lateral rotation and right lateral flexion. BUE strength 5/5 Tenderness to right sternocleidomastoid and Trapezius muscles nontender over midline cervical vertebrae Neurological: Answers questions appropriately. Thought process intact. (Haitian speaking male, daughter assisted with translation) Psychiatric: Appropriate mood and affect. Good judgment and insight. Results Reviewed Results Reviewed: 06/01/2020 XR Cervical Spine IMPRESSION: Generalized facet joint arthropathy mainly in the right side from C3-C4 through C6-C7 disc levels. There is bilateral narrowing of neural foramina. There are degenerative disc changes with spondylosis at C6-C7 disc level. These findings have significantly progressed since 2017. The neural foraminal narrowing is new. No acute fracture or dislocation seen. Assessment & Plan Assessment & Plan (1) Torticollis: Code(s): M43.6 - Torticollis Plan Patient presented to the office today, accompanied by his daughter, for evaluation and management of his chronic neck pain. He is suffering from torticollis, he has failed conservative therapy including muscle relaxers, chronic opioid therapy and Botox injections Order placed for massage therapy, evaluation and treatment Order placed for chiropractor, evaluation and treatment Order placed for acupuncture, evaluation and treatment Salonpas topical patches, apply to most painful area as needed Referral placed for neurosurgery, Dr. Conde, to discuss potential surgical options. All questions and concerns were answered, patient and daughter agree with the plan. Follow-up after neurosurgery evaluation, sooner if needed. Orders: Referrals Massage Therapy Referral M43.6 - Torticollis Chiropractic Referral M43.6 - Torticollis Acupuncture Referral M43.6 - Torticollis Neurosurgery Referral M43.6 - Torticollis Medications: New capsaicin-menthol 0.025-1.25 % (Salonpas (capsaicin-menthol)) may leave on area for up to 8 hrs 1 patch topical BID-TID 7 days PRN 6 ea 3RF pain Coding Level of Care Code Est Pt Level 4 (17004) Diagnoses Torticollis M43.6
[2023-09-21 10:03] VITALS: BP 116/60; PULSE 68; O2SAT 99; BMI 30.1
== END 2023-09-21 10:37 | disposition home or self-care (01) ==
PROVIDERS: PCP General Practice; Referring Provider General Practice; Visit Provider Registered Nurse Emergency
DX: M43.6 Torticollis (principal)
CPT/HCPCS: 99214

== ENCOUNTER 2023-12-12 10:06 | Outpatient (REF) | payer OTHER, SELFPAY ==
[2023-12-12 12:30] LABS: Alanine Aminotransferase 32 U/L (0-40); Albumin Level 4.8 g/dL (3.5-5.0); Alkaline Phosphatase 116 U/L (39-117); Anion Gap 13 (12-20); Aspartate Amino Transferase 33 U/L (5-37); Bilirubin Total 0.4 mg/dL (0.0-1.0); Blood Urea Nitrogen 23 mg/dL (9-16); Calcium 9.9 mg/dL (8.4-10.2); Carbon Dioxide 29 mmol/L (22-29); Chloride 103 mmol/L (96-108); Estimated Glomerular Filt Rate 43; Glucose Random 103 mg/dL (60-115); Potassium 4.3 mmol/L (3.3-5.1); Sodium 141 mmol/L (135-145); Total Protein 8.9 g/dL (6.5-8.0)
[2023-12-12 12:43] LABS: Estimated Average Glucose 123 mg/dL; Hemoglobin A1c % 5.9 % (<6.0)
== END 2023-12-12 10:07 | disposition home or self-care (01) ==
LOC: HO.HHCL 10:06
PROVIDERS: Visit Provider Emergency Medicine
DX: I10 Essential (primary) hypertension (principal); R60.0 Localized edema
CPT/HCPCS: 36415; 80053; 83036

== ENCOUNTER 2023-12-14 19:37 | Emergency (ER) | payer OTHER, SELFPAY ==
[2023-12-14 19:41] VITALS: BP 134/68; PULSE 64; RESP 16; TEMP 36.4; O2SAT 96; BMI 30.1
[2023-12-14 20:37] LABS: MANUAL DIFF FLAG NO
[2023-12-14 20:40] LABS: Basophils Percent Auto 0.6 % (0-2); Eosinophils Absolute Auto 0.3 X10*3/uL (0.0-0.4); Eosinophils Percent Auto 4.4 % (0-4); Hematocrit 36.6 % (42.0-52.0); Hemoglobin 12.9 g/dl (14.0-18.0); Imm Gran Abs Auto 0.01 X10*3/uL (0.00-0.03); Imm Gran Pct Auto 0.1 % (0.0-0.4); Lymphocytes Absolute Auto 2.7 X10*3/uL (1.2-4.9); Mean Corpuscular HGB Conc 35.2 g/dl (31.0-36.0); Mean Corpuscular Hemoglobin 31.1 pg (27.0-33.0); Mean Corpuscular Volume 88.2 fL (80.0-98.0); Mean Platelet Volume 10.2 fL (9.4-12.4); Monocytes Absolute Auto 0.7 X10*3/uL (0.1-1.2); Monocytes Percent Auto 10.3 % (2-11); Neutrophils Percent Auto 44.6 % (45-73); Platelet Count 223 X10*3/uL (160-400); Red Blood Count 4.15 X10*6/uL (4.60-5.80); Red Cell Distribution Width 12.9 % (11.0-16.0); White Blood Count 6.8 X10*3/uL (4.8-10.8)
[2023-12-14 20:54] LABS: Alanine Aminotransferase 26 U/L (0-40); Albumin Level 4.3 g/dL (3.5-5.0); Alkaline Phosphatase 112 U/L (39-117); Anion Gap 13 (12-20); Aspartate Amino Transferase 31 U/L (5-37); Bilirubin Total 0.3 mg/dL (0.0-1.0); Blood Urea Nitrogen 27 mg/dL (9-16); Calcium 9.3 mg/dL (8.4-10.2); Carbon Dioxide 25 mmol/L (22-29); Chloride 107 mmol/L (96-108); Creatinine Clr Calc Pharmacy 41.6; Estimated Glomerular Filt Rate 44; Glucose Random 135 mg/dL (60-115); Magnesium 2.3 mg/dL (1.6-2.6); Potassium 3.8 mmol/L (3.3-5.1); Sodium 141 mmol/L (135-145); Total Protein 8.8 g/dL (6.5-8.0)
[2023-12-14 21:50] VITALS: BP 146/70; PULSE 67; O2SAT 98
--- NOTE | 2023-12-14 22:36 | ED_ITS ---
HPI - General Adult General Chief complaint: Recheck/Abnormal Lab/Rx Stated complaint: abnormal labs Time Seen by Provider: 12/14/23 22:10 Source: patient and family Mode of arrival: ambulatory Limitations: no limitations History of Present Illness HPI narrative: Patient is a 68-year-old male who presents emergency department his daughter for evaluation. Patient received call from his primary care office today advising him that he had abnormal kidney function and was recommended to come to the emergency department. When asked, daughter states that the blood work was obtained after he was recently started on medication. Reportedly he was experiencing 4-5 days of bilateral lower extremity swelling he was evaluated at his primary care doctor's office through [facility], he was provided with a prescription for HCTZ 12.5 mg tablets and was recommended to take the medication daily and he may stop taking it once the swelling resolves. He states he took the medication for 4 days. The lab work was obtained after he completed the HCTZ. He denies fevers, chills, chest pain, shortness of breath, nausea, vomiting, abdominal pain, flank or back pain, dysuria, hematuria, urinary hesitancy. Related Data Home Medications ?Medication ?Instructions ?Recorded ?Confirmed aspirin 81 mg tablet,delayed 81 mg PO DAILY 01/21/22 09/18/23 release atorvastatin 20 mg tablet 20 mg PO DAILY 01/21/22 09/18/23 oxycodone-acetaminophen 5 mg-325 1 tab PO Q12H PRN Pain 01/21/22 09/18/23 mg tablet diclofenac sodium 75 mg 75 mg PO BID 02/14/22 09/18/23 tablet,delayed release eszopiclone 3 mg tablet 3 mg PO BEDTIME PRN Insomnia 02/14/22 09/18/23 amlodipine 10 mg tablet 1 tab PO QAM 05/10/22 09/18/23 atenolol 25 mg tablet 1 tab PO QPM 05/10/22 09/18/23 cetirizine 10 mg tablet 1 tab PO DAILY 05/10/22 09/18/23 clonazepam 0.5 mg tablet (Klonopin) 0.5 tab PO DAILY anxiety 05/10/22 09/18/23 fluticasone propionate 110 2 puff inhalation BID 05/10/22 09/18/23 mcg/actuation HFA aerosol inhaler (Flovent HFA) fluticasone propionate 50 1 spray intranasal BID 05/10/22 09/18/23 mcg/actuation nasal spray,suspension ibuprofen 600 mg tablet 1 tab PO BID PRN pain 05/10/22 09/18/23 losartan 100 mg tablet 1 tab PO QAM 05/10/22 09/18/23 multivitamin-ferrous 1 tab PO DAILY 05/10/22 09/18/23 fumarate-folic acid 18 mg-400 mcg tablet (Certavite-Antioxidant) sertraline 100 mg tablet 1.5 tab PO DAILY 05/10/22 09/18/23 cholecalciferol (vitamin D3) 50 50 mcg PO DAILY 06/02/22 09/18/23 mcg (2,000 unit) tablet donepezil 5 mg tablet 5 mg PO DAILY 06/02/22 09/18/23 melatonin 5 mg tablet 5 mg PO BEDTIME 06/02/22 09/18/23 quetiapine 100 mg tablet 100 mg PO BEDTIME 06/02/22 09/18/23 sertraline 50 mg tablet 50 mg PO DAILY 06/02/22 09/18/23 tamsulosin 0.4 mg capsule 0.4 mg PO BEDTIME 06/02/22 09/18/23 acetaminophen 500 mg tablet mg PO 09/20/23 lemborexant 5 mg tablet (Dayvigo) 5 mg PO BEDTIME PRN insomnia 09/20/23 nitrofurantoin 1 cap PO BID 09/20/23 monohydrate/macrocrystals 100 mg capsule trihexyphenidyl 2 mg tablet mg PO 09/20/23 clotrimazole 1 % topical cream appl topical DAILY 09/21/23 fluticasone furoate 200 1 inh inhalation DAILY 09/21/23 mcg/actuation blister powder for inhalation (Arnuity Ellipta) Previous Rx's ?Medication ?Instructions ?Recorded omeprazole 20 mg capsule,delayed 20 mg PO DAILY #90 caps 05/23/23 release capsaicin-menthol 0.025 %-1.25 % 1 patch topical BID-TID PRN pain 7 09/21/23 topical patch (Salonpas days #6 ea (capsaicin-menthol)) Allergies Allergy/AdvReac Type Severity Reaction Status Date / Time Penicillins Allergy Intermediate Hives Verified 12/14/23 19:43 Sulfa (Sulfonamide Allergy Intermediate Hives Verified 12/14/23 19:43 Antibiotics) morphine AdvReac Intermediate Vomiting Verified 12/14/23 19:43 [facility] Past Medical History Attestation statement: The following information was validated with the patient. Source: old records reviewed Medical History Memory problem Erectile dysfunction Depressed Anxiety Back pain HTN (hypertension) HLD (hyperlipidemia) Surgical History History of esophagogastroduodenoscopy (EGD) Hx of inguinal hernia repair Hx of colonoscopy Social History Social History (Updated 09/21/23 @ 10:05 by Nilda Paredes) Are you a primary acute care nurse practitioner to a significant other at home: No Do you presently have visiting nurse or other home services: Yes (daughter, PRACTICE SPECIALIST, [employer]) Alcohol intake: never Patient Tobacco Use Status: Former Tobacco user Tobacco use type: Cigarette Smoked in Last 30 Days: No Advance Directives: No Advance Directives Information Provided: No Do you have a plan to hurt others: No Plan Physical Exam ED Vital Signs: Vital Signs - 24 hr 12/14/23 19:41 12/14/23 21:50 Temperature 97.6 F Pulse Rate 64 67 Respiratory Rate 16 Blood Pressure 134/68 146/70 H Pulse Oximetry 96 98 Oxygen Delivery Method Room Air Room Air BMI result Body Mass Index 30.1 Appearance: Alert.?Oriented to person, place and time. No acute distress.?Normal affect. Eyes: Pupils equal, round and reactive to light.? ENT: Pharynx normal.?? Neck: Normal inspection.? Neck supple.?? CVS: Heart sounds normal. Normal heart rate and rhythm.? Pulses normal.?? Respiratory: No respiratory distress.? Lung sounds clear to auscultation bilaterally?? Abdomen: Soft and non-tender. Normoactive bowel sounds. No pulsatile mass.??No CVA tenderness Skin: Skin warm and dry.? Normal skin color.? Normal skin turgor.?? Extremities: No lower extremity edema.? No calf ttp? Neuro: Moves all extremities spontaneously. Sensation intact bilaterally. Ambulates with normal steady gait. Course Reevaluation(s) Reevaluation #1: Repeat creatinine 1.23 after 1 L IV fluids. Suspect UVALDO secondary to recent initiation of HCTZ. Urinalysis without evidence of infection or microscopic hematuria. Patient is stable for discharge home at this time and outpatient follow-up with primary care provider. All questions answered. Medications Administered Discontinued Medications Generic Name Dose Route Start Last Admin Trade Name Freq PRN Reason Stop Dose Admin Sodium Chloride 1,000 mls @ 999 mls/hr 12/14/23 22:45 12/15/23 00:09 Ns IV 12/14/23 23:45 Infused .Q1H1M ISAÍAS Infusion Medical Decision Making Medical Decision Making MDM Narrative: Patient is a 68-year-old male with past medical history of depression, anxiety, hypertension, hyperlipidemia presenting to emergency department for evaluation of UVALDO found on outpatient serum labs. On review of record, 2 days ago 12/12/2023 had BUN/creatinine of 23/1.62, on repeat today BUN/creatinine 27/1.56. He is currently asymptomatic, has no associated pain, suspect that this is secondary to the recent initiation of HCTZ and subsequent volume depletion. No evidence of CHF on examination. Patient received 1 L normal saline IV fluid and will repeat BMP, as it is already improving when compared to 2 days ago I anticipate that he will be stable for discharge home and outpatient follow-up with primary care provider. Discussed with patient and daughter that he may consider purchasing compression stockings for likely dependent edema, and if he has further issues with edema to follow-up closely with his primary care provider. Differential Diagnosis Differential Diagnoses: The differential diagnosis associated with the presentation includes (See narrative above) Admission/Observation Consideration of admission/observation: Escalation of care including admission/observation considered (See narrative above) Lab Data MDM Lab Attestation statement: I reviewed the patient's lab results. (See narrative above) 12/14/23 20:33 12/14/23 23:57 Labs: Lab Results 12/14/23 12/14/23 12/15/23 Range/Units 20:33 23:57 00:20 WBC 6.8 (4.8-10.8) X10*3/uL RBC 4.15 L (4.60-5.80) X10*6/uL Hgb 12.9 L (14.0-18.0) g/dl Hct 36.6 L (42.0-52.0) % MCV 88.2 (80.0-98.0) fL MCH 31.1 (27.0-33.0) pg MCHC 35.2 (31.0-36.0) g/dl RDW 12.9 (11.0-16.0) % Plt Count 223 (160-400) X10*3/uL MPV 10.2 (9.4-12.4) fL Immature Gran % (Auto) 0.1 (0.0-0.4) % Neut % (Auto) 44.6 L (45-73) % Lymph % (Auto) 40.0 (20-40) % [place] % (Auto) 10.3 (2-11) % Eos % (Auto) 4.4 H (0-4) % Baso % (Auto) 0.6 (0-2) % Lymph # (Auto) 2.7 (1.2-4.9) X10*3/uL [place] # (Auto) 0.7 (0.1-1.2) X10*3/uL Eos # (Auto) 0.3 (0.0-0.4) X10*3/uL Baso # (Auto) 0.0 (0.0-0.2) X10*3/uL Abs Immat Gran (auto) 0.01 (0.00-0.03) X10*3/uL Absolute Neuts (auto) 3.0 (2.0-8.3) x10*3/uL Absolute Nucleated RBC 0.000 (0.0-0.012) X10*3/uL Nucleated RBC % (auto) 0.0 (0.0-0.2) /100WBC Sodium 141 142 (135-145) mmol/L Potassium 3.8 3.6 (3.3-5.1) mmol/L Chloride 107 111 H (96-108) mmol/L Carbon Dioxide 25 22 (22-29) mmol/L Anion Gap 13 13 (12-20) BUN 27 H 26 H (9-16) mg/dL Creatinine 1.56 H 1.23 (0.5-1.4) mg/dL Estim Creat Clear Calc 41.6 52.8 Estimated GFR 44 59 Random Glucose 135 H 198 H (60-115) mg/dL Calcium 9.3 D 8.7 D (8.4-10.2) mg/dL Magnesium 2.3 (1.6-2.6) mg/dL Total Bilirubin 0.3 (0.0-1.0) mg/dL AST 31 (5-37) U/L ALT 26 (0-40) U/L Alkaline Phosphatase 112 (39-117) U/L B-Natriuretic Peptide 13 (<100) pg/mL Total Protein 8.8 H (6.5-8.0) g/dL Albumin 4.3 (3.5-5.0) g/dL Urine Color Yellow Urine Appearance Clear Urine pH 6.0 (5.0-9.0) Ur Specific [place] 1.025 (1.005-1.025) Urine Protein Trace (Neg-Trace) mg/dL Urine Glucose (UA) Negative (Negative) mg/dL Urine Ketones Negative (Negative) mg/dL Urine Blood Negative (Negative) Urine Nitrite Negative (Negative) Ur Leukocyte Esterase Negative (Negative) Independent Historian Clinical information obtained from an independent historian. History obtained from or confirmed by: Other (Daughter who confirms history) External Record Review External record reviewed: Prior outpatient labs (See narrative above) Discharge Plan Discharge Clinical Impression: Acute kidney injury Patient Disposition: Home, Self-Care Instructions: Acute Kidney Injury (DC) Additional Instructions: As discussed, it is most likely that your kidney labs became abnormal after taking the diuretic you were recently prescribed. You received IV fluids in the emergency department with improvement in your kidney function. Urine testing does not show any evidence of infection or blood in the urine. Please follow-up with your primary care doctor. You may return back to emergency department any new or worsening symptoms or concerns. Prescriptions: No Action omeprazole 20 mg capsule,delayed release(DR/EC) 20 mg PO DAILY Qty: 90 3RF cetirizine 10 mg tablet 1 tab PO DAILY clonazepam [Klonopin] 0.5 mg tablet 0.5 tab PO DAILY atenolol 25 mg tablet 1 tab PO QPM amlodipine 10 mg tablet 1 tab PO QAM ibuprofen 600 mg tablet 1 tab PO BID PRN (Reason: pain) losartan 100 mg tablet 1 tab PO QAM fluticasone propionate 50 mcg/actuation spray,suspension 1 spray intranasal BID fluticasone propionate [Flovent HFA] 110 mcg/actuation HFA aerosol inhaler 2 puff inhalation BID Certavite-Antioxidant 18-400 mg-mcg tablet 1 tab PO DAILY sertraline 100 mg tablet 1.5 tab PO DAILY oxycodone-acetaminophen 5-325 mg tablet 1 tab PO Q12H PRN (Reason: Pain) aspirin 81 mg tablet,delayed release (DR/EC) 81 mg PO DAILY atorvastatin 20 mg tablet 20 mg PO DAILY cholecalciferol (vitamin D3) 50 mcg (2,000 unit) tablet 50 mcg PO DAILY sertraline 50 mg tablet 50 mg PO DAILY quetiapine 100 mg tablet 100 mg PO BEDTIME melatonin 5 mg tablet 5 mg PO BEDTIME tamsulosin 0.4 mg capsule 0.4 mg PO BEDTIME donepezil 5 mg tablet 5 mg PO DAILY eszopiclone 3 mg tablet 3 mg PO BEDTIME PRN (Reason: Insomnia) diclofenac sodium 75 mg tablet,delayed release (DR/EC) 75 mg PO BID nitrofurantoin monohyd/m-cryst 100 mg capsule 1 cap PO BID trihexyphenidyl 2 mg tablet PO Dayvigo 5 mg tablet 5 mg PO BEDTIME PRN (Reason: insomnia) acetaminophen 500 mg tablet PO clotrimazole 1 % cream topical DAILY Arnuity Ellipta 200 mcg/actuation blister with device 1 inh inhalation DAILY Salonpas (capsaicin-menthol) 0.025-1.25 % adhesive patch,medicated 1 patch topical BID-TID PRN (Reason: pain) 7 Days Qty: 6 3RF Rx Instructions: may leave on area for up to 8 hrs Referrals: Phuong Cortes MD [Primary Care Provider] - Print Language: Setswana
[2023-12-14] MEDS: 0.9 % Sodium Chloride 1,000 ML 999 ML IV (22:47)
[2023-12-14 23:17] LABS: B Type Natriuretic Peptide 13 pg/mL (<100)
[2023-12-15 00:16] LABS: Anion Gap 13 (12-20); Blood Urea Nitrogen 26 mg/dL (9-16); Calcium 8.7 mg/dL (8.4-10.2); Carbon Dioxide 22 mmol/L (22-29); Chloride 111 mmol/L (96-108); Creatinine Clr Calc Pharmacy 52.8; Estimated Glomerular Filt Rate 59; Glucose Random 198 mg/dL (60-115); Potassium 3.6 mmol/L (3.3-5.1); Sodium 142 mmol/L (135-145)
[2023-12-15 00:27] LABS: Appearance Urine Clear; Color Urine Yellow; Glucose Urine UA Negative (Negative); Leukocyte Esterase Urine Negative (Negative); Nitrite Urine Negative (Negative); Specific Gravity - Urine 1.025 (1.005-1.025); Urine Blood Negative (Negative); Urine Ketones Negative (Negative); Urine Protein Trace mg/dL (Neg-Trace)
[2023-12-15 00:41] VITALS: BP 146/70; PULSE 67; RESP 16; TEMP 36.4; O2SAT 98
== END 2023-12-15 00:42 | disposition home or self-care (01) ==
PROVIDERS: Nurse Practitioner Family; Physician Assistant; Emergency Provider Internal Medicine; PCP General Practice
DX: N17.9 Acute kidney failure, unspecified (principal); R94.4 Abnormal results of kidney function studies; I10 Essential (primary) hypertension; E78.5 Hyperlipidemia, unspecified; Z87.891 Personal history of nicotine dependence; Z79.82 Long term (current) use of aspirin; Z79.02 Long term (current) use of antithrombotics/antiplatelets; Z79.899 Other long term (current) drug therapy
CPT/HCPCS: 36415; 80048; 80053; 81003; 83735; 83880; 85025; 96360; 99284

== ENCOUNTER → 2024-07-31 08:49 | Outpatient (BNV) | payer OTHER, SELFPAY | PROVIDERS: Visit Provider Radiology Diagnostic Radiology | DX: R05.9 Cough, unspecified (principal); M25.512 Pain in left shoulder | CPT/HCPCS: 71046; 73030 ==

== ENCOUNTER 2024-08-25 10:14 | Emergency (ER) | payer OTHER, SELFPAY ==
--- NOTE | ~2024-08-25 | XR_ITS ---
CLINICAL HISTORY: COUGH One view of the chest. Comparison: CR/MA/SR - XR CHEST 2V - 07/31/24 09:09 EST Findings: Cardiac and mediastinal contours are stable. Mild interstitial prominence with scattered peribronchial thickening. No focal consolidation. No effusion. No pneumothorax. No acute osseous finding. Impression: Mild interstitial prominence with scattered peribronchial thickening. No focal consolidation. No significant change from prior This document has been electronically signed by: Diego Canchola MD on 08/25/2024 11:34:01
[2024-08-25 10:22] VITALS: BP 176/69; PULSE 78; RESP 16; TEMP 37.5; O2SAT 93; BMI 30.6
[2024-08-25 10:40] LABS: Basophils Percent Auto 0.3 % (0-2); Eosinophils Absolute Auto 0.3 X10*3/uL (0.0-0.4); Eosinophils Percent Auto 2.5 % (0-4); Hematocrit 36.2 % (42.0-52.0); Hemoglobin 12.3 g/dl (14.0-18.0); Imm Gran Abs Auto 0.07 X10*3/uL (0.00-0.03); Imm Gran Pct Auto 0.6 % (0.0-0.4); Lymphocytes Absolute Auto 1.8 X10*3/uL (1.2-4.9); Lymphocytes Percent Auto 15.3 % (20-40); MANUAL DIFF FLAG NO; Mean Corpuscular Hemoglobin 30.2 pg (27.0-33.0); Mean Corpuscular Volume 88.9 fL (80.0-98.0); Mean Platelet Volume 10.5 fL (9.4-12.4); Monocytes Absolute Auto 1.1 X10*3/uL (0.1-1.2); Monocytes Percent Auto 9.3 % (2-11); Neutrophils Absolute Auto 8.4 x10*3/uL (2.0-8.3); Platelet Count 175 X10*3/uL (160-400); Red Blood Count 4.07 X10*6/uL (4.60-5.80); Red Cell Distribution Width 13.7 % (11.0-16.0); White Blood Count 11.7 X10*3/uL (4.8-10.8)
[2024-08-25 11:06] LABS: B Type Natriuretic Peptide 293 pg/mL (<100)
[2024-08-25 11:19] LABS: Influenza A PCR POSITIVE (Negative); Influenza B PCR NEGATIVE (Negative); Resp Syncy Virus RNA Qual PCR NEGATIVE (Negative); SARS COV2 PCR INHOUSE NEGATIVE (Negative)
--- OUTSIDE RECORDS SUMMARY | 2024-08-25 11:41 | XMS_ITS | Data Portability ---
Author Organization [employer] [facility], [place] - [facility] Address [address] [place] [id number] Care Team Providers Care [facility] Nurse Name Role Phone [facility] Referring Provider [facility] Referring Provider Assessment Encounter Date Assessment Date Assessment LastModified by Organization Details LastModified Time 01/06/2022 01/06/2022 I have reviewed and agree with the Assessment and Plan as documented by the Retail Field Merchandiser. I provided real -time medical direction via phone for this encounter, and was available for additional phone based assistance as needed. Patient/ family given the opportunity to ask questions. [email or web address] Not available 01/06/2022 15:25:06 01/08/2022 01/08/2022 I have reviewed and agree with the Assessment and Plan as documented by the Retail Field Merchandiser. I provided real -time medical direction via phone for this encounter, and was available for additional phone based assistance as needed. Patient/ familygiven the opportunity to ask questions. [email or web address] Not available 01/08/2022 12:04:45 Plan of Treatment Reminders Order Date Submit Date Provider Last Modified By Organization Details Last Modified Time Details Appointments None recorded. Lab cmp, whole blood + pietro 2021 022 [email or web address] 0 [facility], [address] [place] [address], [phone], 12:03:59 cmp, whole blood + pietro 2021 022 [email or web address] 0 [facility], [address] [place] [address], [phone], 17:09:53 Referral None recorded. Procedures IV insertion (PROC) 2021 022 [email or web address] 0 Not available 15:24:30 Surgeries None recorded. Imaging None recorded. Medication Orders Tylenol Extra Strength 500 mg tablet 2021 022 [email or web address] 0 [facility], [address] [place] [address], [id number], 12:03:59 sodium chloride 0.9 % intravenous solution 2021 022 [email or web address] 0 Not available 15:24:30 ondansetron HCl (PF) 4 mg/2 mL injection syringe 2021 022 [email or web address] 0 Not available 15:24:30 metronidazo le 500 mg tablet 2021 [facility], [address] [place] [address], [id number], 17:11:21 levofloxaci n 500 mg tablet 2021 [facility], [address] [place] [address], [id number], 17:11:21 ondansetron 4 mg disintegrat ing tablet 2021 [facility], [address] [place] [address], [id number], 17:11:22 levofloxaci n 500 mg tablet 2021 022 [email or web address] 0 [facility], [address] [place] [address], [id number], 2 17:02:44 loperamide 2 mg capsule 2021 022 [email or web address] 0 [facility], [address] [place] [address], [id number], 2 17:02:44 Patient TargetsNo targets recorded. Patient Instructions Encounter Date Encounter Id Patient Instructions Last Modified By Organization Details Last Modified Time 01/08/2022 [id number] infusion, normal saline* [email or web address] Not available 01/08/2022 12:03:59 orthostatic vitals* [email or web address] Not available 01/08/2022 12:03:59 Reason for Referral None Reported. Results Created Date Observation Date Name Description Value Unit Range Abnormal Flag Note LastModifiedBy Organization Detail LastModifiedTime 01/07/20 22 01/06/2022 cmp, whole blood + picco lo BUN 20 Not Available [facility] [address], [address], 01/06/2022 17:07:53 01/07/20 22 01/06/2022 cmp, whole blood + picco lo Ca 10.2 Not Available [facility] [address], [address], 01/06/2022 17:07:53 01/07/20 22 01/06/2022 cmp, whole blood + picco lo CI- normal Not Available [facility] [address], [address], 01/06/2022 17:07:53 01/07/20 22 01/06/2022 cmp, whole blood + picco lo CRE 1.2 Not Available [facility] [address], [address], 01/06/2022 17:07:53 01/07/20 22 01/06/2022 cmp, whole blood + picco lo GLU 115 Not Available [facility] [address], [address], 01/06/2022 17:07:53 01/07/20 22 01/06/2022 cmp, whole blood + picco lo K+ 4.7 Not Available [facility] [address], [address], 01/06/2022 17:07:53 01/07/20 22 01/06/2022 cmp, whole blood + picco lo Na+ 145 Not Available [facility] [address], [address], 01/06/2022 17:07:53 01/07/20 22 01/06/2022 cmp, whole blood + picco lo tCO2 29 Not Available [facility] [address], [address], 01/06/2022 17:07:53 01/07/20 22 01/06/2022 cmp, whole blood + picco lo TP 9 Not Available [facility] [address], [address], 01/06/2022 17:07:53 01/09/20 22 01/08/2022 cmp, whole blood + picco lo BUN 13 Not Available [facility] [address], [address], 01/08/2022 11:40:17 01/09/20 22 01/08/2022 cmp, whole blood + picco lo Ca 9.2 Not Available [facility] [address], [address], 01/08/2022 11:40:17 01/09/20 22 01/08/2022 cmp, whole blood + picco lo CI- normal Not Available [facility] [address], [address], 01/08/2022 11:40:17 01/09/20 22 01/08/2022 cmp, whole blood + picco lo CRE 1 Not Available [facility] [address], [address], 01/08/2022 11:40:17 01/09/20 22 01/08/2022 cmp, whole blood + picco lo GLU 104 Not Available [facility] [address], [address], 01/08/2022 11:40:17 01/09/20 22 01/08/2022 cmp, whole blood + picco lo K+ 4.2 Not Available [facility] [address], [address], 01/08/2022 11:40:17 01/09/20 22 01/08/2022 cmp, whole blood + picco lo Na+ 144 Not Available [facility] [address], [address], 01/08/2022 11:40:17 01/09/20 22 01/08/2022 cmp, whole blood + picco lo tCO2 27 Not Available [facility] [address], [address], 01/08/2022 11:40:17 01/09/20 22 01/08/2022 cmp, whole blood + picco lo TP 8.2 Not Available [facility] [address], [address], 01/08/2022 11:40:17 Result Notes None recorded. Medical Equipment None Reported. Allergies Allergen ID Allergen Name Allergen Category Reaction Reaction Severity Criticality Documentation Date Start Date Code Code System Note Provider Name and Address Organization Details Recorded Time 690 Product containin g penicilli n (product) medicatio n Not available Not available Not available 01/06/2022 99806 8001 SNOMED Not Available [facility] - production 4 03:46:17 691 Substance with sulfonami de structure and antibacte rial mechanism of action (substanc e) medicatio n Not available Not available Not available 01/06/2022 58195 8003 SNOMED Josselin Patel MD [address] [place] [address],[address], [place], [address], [email or web address], [employer] 2 15:03:26 692 contact metal agent environme nt Not available Not available Not available 01/06/2022 00193 UNK Josselin Patel MD [address] [place] [address],[address], [place], [address], [place] - [employer], [employer] 2 15:03:36 693 morphine medicatio n Not available Not available Not available 01/06/2022 7052 RxNorm Josselin Patel MD [address] [facility],[address], [place], [address] , [employer] 15:24:39 Medications Name Sig Start Date Stop Date Status Note LastModified by Organization Details LastModified Time amoxicillin 500 mg capsule TAKE 1 CAPSULE BY MOUTH EVERY 6 HOURS UNTIL FINISHED active Not Available Not Available No t Available atorvastatin 20 mg tablet TAKE 1 TABLET BY MOUTH EVERY MORNING active Not Available Not Available No t Available donepezil 5 mg tablet TAKE 1 TABLET BY MOUTH EVERY EVENING active Not Available Not Available No t Available loperamide 2 mg capsule 2 mg po now 2021 active Not Available Not Available Not Avai lable cetirizine 10 mg tablet TAKE 1 TABLET BY MOUTH EVERY DAY active Not Available Not Available No t Available ibuprofen 800 mg tablet TAKE 1 TABLET BY MOUTH EVERY 8 HOURS NEEDED FOR PAIN active Not Available Not Available No t Available donepezil 10 mg tablet TAKE 1 TABLET BY MOUTH EVERY EVENING active Not Available Not Available No t Available sucralfate 1 gram tablet TAKE 1 TABLET BY MOUTH TWICE DAILY ON AN EMPTY STOMACH 1 HOUR BEFORE MEALS AND AT BEDTIME FOR REFLUX active Not Available Not Available N ot Available clonazepam 0.5 mg tablet TAKE 1/2 TABLET BY MOUTH ONCE DAILY FOR FOR ANXIETY active Not Available Not Available No t Available sertraline 100 mg tablet TAKE 1 TABLET BY MOUTH EVERY MORNING active Not Available Not Available No t Available atenolol 25 mg tablet TAKE 1 TABLET BY MOUTH EVERY EVENING active Not Available Not Available No t Available metronidazole 500 mg tablet TAKE 1 TABLET BY MOUTH EVERY 8 HOURS FOR 3 DAYS UNTIL FINISHED. START 01/06/22 IN THE EVENING. active Not Available Not Available No t Available ciprofloxacin 250 mg tablet TAKE 1 TABLET BY MOUTH EVERY TWELVE HOURS UNTIL FINISHED active Not Available Not Available No t Available aspirin 81 mg tablet,delaye d release TAKE 1 TABLET BY MOUTH AT BEDTIME active Not Available Not Available No t Available quetiapine 100 mg tablet TAKE 1 TABLET BY MOUTH AT BEDTIME active Not Available Not Available No t Available oxycodone-agata taminophen 5 mg-325 mg tablet TAKE 1 TABLET BY MOUTH EVERY 12 HOURS NEEDED FOR 30 DAYS active Not Available Not Available No t Available famotidine 20 mg tablet TAKE 1 TABLET BY MOUTH TWICE A DAY X30 DAYS active Not Available Not Available No t Available tamsulosin 0.4 mg capsule TAKE 1 CAPSULE BY MOUTH EVERY MORNING (1/2 HOUR AFTER BREAKFAST) active Not Available Not Available N ot Available amlodipine 10 mg tablet TAKE 1 TABLET BY MOUTH EVERY MORNING active Not Available Not Available No t Available omeprazole 20 mg capsule,delay ed release TAKE 1 CAPSULE BY MOUTH EVERY MORNING BEFORE BREAKFAST active Not Available Not Available No t Available diclofenac sodium 75 mg tablet,delaye d release TAKE 1 TABLET BY MOUTH TWICE A DAY AFTER MEALS 30 active Not Available Not Available No t Available zolpidem 5 mg tablet TAKE 1 TABLET BY MOUTH AT BEDTIME NEEDED for SLEEP active Not Available Not Available No t Available sodium chloride 0.9 % intravenous solution 1 L NS infusion over 1 hr 2021 active Not Available Not Available Not Avai lable ibuprofen 600 mg tablet TAKE 1 TABLET BY MOUTH TWICE DAILY NEEDED NECK PAIN active Not Available Not Available No t Available polyethylene glycol 3350 17 gram/dose oral powder [id number] G ORALLY ONCE FOR 1 DAY TAKE DIRECTED BY MOUTH THE DAY BEFORE YOUR PROCEDURE. active Not Available Not Available N ot Available levofloxacin 500 mg tablet TAKE 1 TABLET BY MOUTH ONCE DAILY FOR 3 DAYS. START 01/07/22. active Not Available Not Available No t Available trihexyphenid yl 2 mg tablet TAKE 1 TABLET BY MOUTH 3 TIMES A DAY FOR 30 DAYS active Not Available Not Available No t Available ondansetron 4 mg disintegratin g tablet DISSOLVE 1 TABLET BY MOUTH EVERY 8 HOURS NEEDED active Not Available Not Available No t Available losartan 100 mg tablet TAKE 1 TABLET BY MOUTH EVERY MORNING active Not Available Not Available No t Available fluticasone propionate 50 mcg/actuation nasal spray,suspens ion USE 1 SPRAY IN EACH NOSTRIL TWICE DAILY active Not Available Not Available No t Available sertraline 50 mg tablet TAKE 1 TABLET BY MOUTH EVERY MORNING active Not Available Not Available No t Available Tylenol Extra Strength 500 mg tablet 500 mg now for abd pain 2021 active Not Available Not Available Not Avai lable Laxative (bisacodyl) 5 mg tablet,delaye d release TAKE 2 TABLETS BY MOUTH AT 12:00PM THE DAY BEFORE YOUR PROCEDURE. active Not Available Not Available N ot Available eszopiclone 3 mg tablet TAKE 1 TABLET BY MOUTH AT BEDTIME NEEDED FOR SLEEP active Not Available Not Available No t Available eszopiclone 2 mg tablet TAKE 1 TABLET BY MOUTH AT BEDTIME NEEDED FOR SLEEP active Not Available Not Available No t Available Flovent HFA 110 mcg/actuation aerosol inhaler INHALE 2 PUFFS TWICE DAILY. WITH SPACER. RINSE MOUTH AFTER USING. active Not Available Not Available No t Available 8 Hour Pain Reliever 650 mg tablet,extend ed release TAKE 1 TABLET BY MOUTH EVERY 6 HOURS NEEDED FOR PAIN active Not Available Not Available No t Available quetiapine 50 mg tablet TAKE 1 TABLET BY MOUTH AT BEDTIME active Not Available Not Available No t Available ondansetron HCl (PF) 4 mg/2 mL injection syringe 4 mg iv 2021 active Not Available Not Available Not Avai lable melatonin 5 mg tablet TAKE 1 TABLET BY MOUTH AT BEDTIME active Not Available Not Available No t Available cholecalcifer ol (vitamin D3) 50 mcg (2,000 unit) tablet TAKE 1 TABLET BY MOUTH EVERYDAY AT NOON active Not Available Not Available No t Available Certavite-Ant ioxidant 18 mg-400 mcg tablet TAKE 1 TABLET BY MOUTH EVERYDAY AT NOON active Not Available Not Available No t Available Vitals Date Recorded Oxygen saturation Oxygen saturation in Arterial blood by Pulse oximetry Body temperature Respiratory rate Heart rate Systolic blood pressure Diastolic blood pressure Provider Name and Address Organization Details Last Updated DateTime 2 99 % 99 % 98.3 [degF] 18 /min 90 /min 133 mm[Hg] 72 mm[Hg] Not Available [employer] 2 15:06:36 Date Recorded Body weight Respiratory rate Body height Heart rate Oxygen saturation Oxygen saturation in Arterial blood by Pulse oximetry Body temperature Body temperature Body weight Oxygen saturation Oxygen saturation in Arterial blood by Pulse oximetry Body height Respiratory rate Heart rate Systolic blood pressure Diastolic blood pressure Systolic blood pressure Diastolic blood pressure Provider Name and Address Organization Details Last Updated DateTime 2 47543.4 16 g 18 /min 160.02 cm 80 /min 100 % 100 % 97.9 [degF] 97.9 [degF] 16992.4 16 g 100 % 100 % 160.02 cm 18 /min 80 /min 168 mm[Hg] 106 mm[Hg] 168 mm[Hg] 106 mm[Hg] Not Available [employer] 2 12:41:22 Social History None recorded. Functional Status None recorded. Mental Status None recorded. Family History Nothing Reported. Medical History No medical history recorded. Past Encounters Encounter ID Performer Location Encounter Start Date Encounter Closed Date Diagnosis/Indication Diagnosis SNOMED-CT Code Diagnosis ICD10 Code Diagnosis Note [id number] Josselin Patel MD [facility] [address] [place] [phone] 01/06/2022 15:02:35 03/08/2022 12:16:30 Diverticulitis 640308572 K57.92 concern for c. diff- yet less likely since only 3 stools today and no foul odor. Hydrated- will continue w/po hydration/ anti emetics/ anti diarrheal otc- will restart antibiotic today and x 3 more days- will increase flagyl to 3 x per day//patie nt unable to give stool spec while [facility] there in home.[facility] had no flagyl- did have Levaquin. May have APAP 650 mg q 6 hr prn. TO F/U PCP tomorrow. Pat aware if develops Temp > 100.4/ severe abd pain / syncope/ black or bloody emesis or stool- to go to the ER [id number] Josselin Patel MD [facility] [address] [place] [phone] 01/08/2022 11:23:28 03/08/2022 21:05:14 Diverticulitis [id number] K57.92 Hydrated- will continue w/po hydrationa dvised BRAT diet- no peaches or melon- can have crackers- gatorade/ h20/ tea/chicke n noodle soup/ Continue anti emetics.Ma y have APAP 650 mg q 6 hr prn. TO F/U PCP Wednesday 01/10. Advised may take Immodium otc.Pat aware if develops Temp > 100.4/ severe abd pain / syncope/ black or bloody emesis or stool- to go to the ER Health Concerns Section Related Observation LastModified by Organization Detai ls LastModified Time None Recorded Concern Status LastModified by Organization Details LastModified Time None Recorded Advance Directives Directive None Recorded Payers Encounter Date Sequence Insurance Name Policy Number Policy Bruce Covered Member ID Bruce Member ID Guarantor Name 01/06/2022 1 [facility] - DOS PRIOR TO 2022 - DUAL ELIGIBLE (MEDICARE REPLACEMENT/ADV ANTAGE - HMO) Eddie Raza [id number] Eddie Person 01/08/2022 1 [facility] - DOS PRIOR TO 2022 - DUAL ELIGIBLE (MEDICARE REPLACEMENT/ADV ANTAGE - HMO) Eddie Raza [id number] Eddie Person Notes Date Note Type Note Provider Name and Address Organization Details Recorded Time 01/06/2022 text/html HPI: ALLERGIC TO: METAL; PENICILLIN AND SULFA Patient with history of colitis and treated following PCP visit 12/31/21 with Flagyl and Cipro. Finishing today. Daughter reports diarrhea and vomiting, poor PO intake. No fever. .................... .................... .................... .................... .................... .................... .................... . CRC Nursing Assessment: Comments: CRC RN DID NOT NEED FURTHER INFORMATION TO PROCESS VISIT SEGMD: patient and family deny fevers- state he was diagnosed with diverticulitis last yr. Took all the Cipro and Flagyl- 7th day was this am(LD). Started with nausea and watery diarrhea 3 days ago. Minimal vomiting- no appetite- has been drinking H20 and chicken broth. 3 episodes of loose watery stool today ( now 4 pm). Stools not black or bloody and have no foul odor/Mild LLQ pain. Denies feeling light headed/ presyncopal......... .................... .................... .................... .................... .................... .................... ............ [employer] Merchandiser Note: Pt was diagnosed with diverticulitis end of last year and then a couple of weeks ago was experiencing similar pain so his PCP called in antibiotics (cipro and flagyl). Pt states he has had 3 days of diarrhea but able to drink fluids. Medcon, CMP, IV zofran, 1L NS. Imodium and Levoquin PO/Red flags discussed .................... .................... .................... .................... .................... .................... .................... . Disposition: Fulfilled Josselin Patel MD [address] [facility],[address], [place], [address], [email or web address] 01/06/2022 17:09:59 01/08/2022 text/html HPI: PMH: diverticulitis allergies: PCN, [facility]. He has hx of diverticulits, + loose stools, lower abd pain, afebrile. Currently taking cipro and flagyl, has follow up with PCP on Monday. Requesting [facility] visit today for ? dehydration and pain control. .................... .................... .................... .................... .................... .................... .................... . CRC Nursing Assessment: Comments: CRC RN DID NOT NEED ANY FURTHER INFO TO PROCESS VISIT SEGMD: Pat seen by me 01/06/22- Bun 20/ cr. 1.2 electrolytes ok- had been put on 5 days of flagyl 500 mg AND CIpro 500 mg 2 x per day by pcp- took LD am 01/04- was still having diarrhea and nausea /poor po- given 1 L NS IV/ zofran/ loperamide/ changed to Levaquin 500 mg daily and flagyl 500mg 3 x per day- pat is taking- zofran helping nausea- no vomiting but poor po- eating melon/ peaches/ bananas/ crackers- got loperamide from us / family did not draft roller picker immodium. Stools loose not watery/ not black/bloody- 3 yesterday- none so far today- c/o diffuse abd pain- no fever- has had no meds for pain otc- ? dehydrated- not light headed - no syncope............. .................... .................... .................... .................... .................... .................... ......... Retail Field Merchandiser Note: Sent to a call for a pt complaining of abd pain. [facility] arrives on scene, pt ambulates with a steady gait. Pt had a recent [facility] visit and was treated for diverticulitis and given antibiotics, zofran, immodium and IV fluids. Pt states the zofran is helping his nausea, but he did not purchase any loperamide. Pt complains of loose stool, and diffuse abd pain. Pt denies headache, dizziness, cp, sob, n/v, fever, or bloody/black tarry stool. Pt had approx 3 incidents of loose stool yesterday. Orthostatics: (sitting) BP:168/106, P:80, RR:18, SpO2:100%RA, T: 97.9; (standing) BP:169/82, P:74; Lung sounds: clear bilaterally; Abdomen: soft, non-tender, non-distended, no pain with palpation. [facility] orders 1 Liter IV Fluids, POC CMP and Tylenol 500mg PO. IV access initiated, blood sample obtained. CMP results uploaded to [employer]. Pt reports feeling slightly better after IV fluids. BP:157/78, P:66; Pt advised on proper diet during flare. Pt advised to take Tylenol 650mg q6hrs as needed for pain. Pt advised to purchase loperamide, and follow up with PCP on Monday. Red flags discussed. Pt and daughter have no further questions. .................... .................... .................... .................... .................... .................... .................... . Disposition: Fulfilled Josselin Patel MD [address] [facility],[address], [place], [address], [email or web address] 01/08/2022 12:50:26
--- NOTE | 2024-08-25 11:47 | ED_ITS ---
HPI - URI/Sore Throat General Chief Complaint: Upper Respiratory Symptoms Stated Complaint: cough Time Seen by Provider: 08/25/24 11:34 Source: patient Mode of arrival: ambulatory Limitations: no limitations History of Present Illness ED Provider: Khadar George DO HPI Narrative: 69-year-old male with past medical history of hiatal hernia, tubular adenoma, dysphagia and GERD presents to the emergency department with daughter due to 1 month of persistent and progressively worsening nonproductive cough, associated chest tightness and difficulty breathing most notably with ambulation. Patient is Indonesian-speaking but declines offered medical insurance biller and prefers to go through his daughter at the bedside. She states the patient lives alone and she visits him often, has noticed he is more short of breath with walking. He has also had chills without fevers and some night sweats over the last couple of nights. He also reports a mild sore throat and rhinorrhea which also develop over the course of couple of days. He denies headache, difficulty breathing or chest pain at rest, abdominal pain, nausea, vomiting or diarrhea. He denies lower extremity swelling or weight gain. He denies recent travel. He has been to his PCP clinic several times over the last month, screened with unremarkable findings and provided with a prednisone course as well as albuterol MDI without improvement in his symptoms. Daughter states he is being referred to a senior corporate strategy manager due to a suspected murmur. Related Data Home Medications ?Medication ?Instructions ?Recorded ?Confirmed aspirin 81 mg tablet,delayed 81 mg PO DAILY 01/21/22 09/18/23 release atorvastatin 20 mg tablet 20 mg PO DAILY 01/21/22 09/18/23 oxycodone-acetaminophen 5 mg-325 1 tab PO Q12H PRN Pain 01/21/22 09/18/23 mg tablet diclofenac sodium 75 mg 75 mg PO BID 02/14/22 09/18/23 tablet,delayed release eszopiclone 3 mg tablet 3 mg PO BEDTIME PRN Insomnia 02/14/22 09/18/23 amlodipine 10 mg tablet 1 tab PO QAM 05/10/22 09/18/23 atenolol 25 mg tablet 1 tab PO QPM 05/10/22 09/18/23 cetirizine 10 mg tablet 1 tab PO DAILY 05/10/22 09/18/23 clonazepam 0.5 mg tablet (Klonopin) 0.5 tab PO DAILY anxiety 05/10/22 09/18/23 fluticasone propionate 110 2 puff inhalation BID 05/10/22 09/18/23 mcg/actuation HFA aerosol inhaler (Flovent HFA) fluticasone propionate 50 1 spray intranasal BID 05/10/22 09/18/23 mcg/actuation nasal spray,suspension ibuprofen 600 mg tablet 1 tab PO BID PRN pain 05/10/22 09/18/23 losartan 100 mg tablet 1 tab PO QAM 05/10/22 09/18/23 multivitamin-ferrous 1 tab PO DAILY 05/10/22 09/18/23 fumarate-folic acid 18 mg-400 mcg tablet (Certavite-Antioxidant) sertraline 100 mg tablet 1.5 tab PO DAILY 05/10/22 09/18/23 cholecalciferol (vitamin D3) 50 50 mcg PO DAILY 06/02/22 09/18/23 mcg (2,000 unit) tablet donepezil 5 mg tablet 5 mg PO DAILY 06/02/22 09/18/23 melatonin 5 mg tablet 5 mg PO BEDTIME 06/02/22 09/18/23 quetiapine 100 mg tablet 100 mg PO BEDTIME 06/02/22 09/18/23 sertraline 50 mg tablet 50 mg PO DAILY 06/02/22 09/18/23 tamsulosin 0.4 mg capsule 0.4 mg PO BEDTIME 06/02/22 09/18/23 acetaminophen 500 mg tablet mg PO 09/20/23 lemborexant 5 mg tablet (Dayvigo) 5 mg PO BEDTIME PRN insomnia 09/20/23 nitrofurantoin 1 cap PO BID 09/20/23 monohydrate/macrocrystals 100 mg capsule trihexyphenidyl 2 mg tablet mg PO 09/20/23 clotrimazole 1 % topical cream appl topical DAILY 09/21/23 fluticasone furoate 200 1 inh inhalation DAILY 09/21/23 mcg/actuation blister powder for inhalation (Arnuity Ellipta) Previous Rx's ?Medication ?Instructions ?Recorded capsaicin-menthol 0.025 %-1.25 % 1 patch topical BID-TID PRN pain 7 09/21/23 topical patch (Salonpas days #6 ea (capsaicin-menthol)) omeprazole 20 mg capsule,delayed See Rx Instructions .Route 04/29/24 release .COMPLEX #90 caps Allergies Allergy/AdvReac Type Severity Reaction Status Date / Time Penicillins Allergy Intermediate Hives Verified 08/25/24 10:24 Sulfa (Sulfonamide Allergy Intermediate Hives Verified 08/25/24 10:24 Antibiotics) morphine AdvReac Intermediate Vomiting Verified 08/25/24 10:24 Review of Systems 2 Review of Systems: Yes all other systems are reviewed and are negative [facility] Past Medical History Medical History Memory problem Erectile dysfunction Depressed Anxiety Back pain HTN (hypertension) HLD (hyperlipidemia) Surgical History History of esophagogastroduodenoscopy (EGD) Hx of inguinal hernia repair Hx of colonoscopy Social History Social History (Updated 09/21/23 @ 10:05 by Nilda Paredes) Are you a primary healthcare advisory services manager to a significant other at home: No Do you presently have visiting nurse or other home services: Yes (daughter, [employer], [employer]) Alcohol intake: never Patient Tobacco Use Status: Former Tobacco user Tobacco use type: Cigarette Advance Directives: No Advance Directives Information Provided: No Physical Exam 2 Vital Signs: Vital Signs: Last Vital Signs Temp 99.5 F 08/25/24 10:22 Pulse 71 08/25/24 12:17 Resp 18 08/25/24 12:17 BP 176/69 H 08/25/24 10:22 Pulse Ox 93 08/25/24 10:22 O2 Del Method Room Air 08/25/24 10:22 BMI result Body Mass Index 30.6 Constitutional: ?Alert, oriented, speaking in full sentences HEENT: ?Normocephalic, atraumatic. ?Moist mucous membranes, a couple of areas of vesicles of the posterior oropharynx Eyes: ?PERRL, EOMI Neck: ?Supple, nontender Chest: ?No chest wall tenderness Respiratory: ?Occasional nonproductive cough, mild inspiratory crackles with faint expiratory wheeze and slightly prolonged expiratory phase, otherwise no increased work of breathing Cardio: ?Regular rate and rhythm, faint murmur, 2+ radial and DP pulses symmetrically GI: ?Soft, nondistended, nontender Back: ?Normal range of motion, nontender Skin: ?No rash, no lesions Neuro: ?Alert and oriented to person, place and time, moves all 4 extremities, no focal deficits Extremities: ?No swelling or tenderness, full range of motion Psych: ?Calm, alert and cooperative, appropriate behavior Medications Administered Discontinued Medications Generic Name Dose Route Start Last Admin Trade Name Jag PRN Reason Stop Dose Admin Albuterol/Ipratropium 3 ml 08/25/24 12:17 08/25/24 12:27 Albuterol/Iprat 2.5/0.5mg 3 Ml Ampul.Neb INHALE 08/25/24 12:18 3 ml ONCE ONE Administration Medical Decision Making Medical Decision Making [facility] Narrative: Pleasant patient presenting with 1 month of cough as well as dyspnea on exertion. He does not use tobacco products and does not have a history of COPD or interstitial lung disease. His presentation today is not consistent with CHF exacerbation. He likely has a chronic bronchitis versus an acute viral syndrome causing wheezing. Labs performed show a mild leukocytosis at 11.7, baseline mild anemia at 12.3, equivocal BNP at 293 and the patient is positive for influenza A. Chest x-ray does not show a superimposed pneumonia. The patient received a DuoNeb for supportive care due to wheezing. Also teaching from RT in how to use the MDI with spacer at home. He is not a candidate for Tamiflu and ambulated with a pulse ox not dipping below 96%. The remainder of his labs are unremarkable and daughter feels comfortable with plan for return to home with return precautions. Admission/Observation Consideration of admission/observation: Escalation of care including admission/observation considered Lab Data [facility] Lab Attestation statement: I reviewed the patient's lab results. 08/25/24 10:34 08/25/24 10:34 Labs: Lab Results 08/25/24 Range/Units 10:34 WBC 11.7 H (4.8-10.8) X10*3/uL RBC 4.07 L (4.60-5.80) X10*6/uL Hgb 12.3 L (14.0-18.0) g/dl Hct 36.2 L (42.0-52.0) % MCV 88.9 (80.0-98.0) fL MCH 30.2 (27.0-33.0) pg MCHC 34.0 (31.0-36.0) g/dl RDW 13.7 (11.0-16.0) % Plt Count 175 (160-400) X10*3/uL MPV 10.5 (9.4-12.4) fL Immature Gran % (Auto) 0.6 H (0.0-0.4) % Neut % (Auto) 72.0 (45-73) % Lymph % (Auto) 15.3 L (20-40) % [place] % (Auto) 9.3 (2-11) % Eos % (Auto) 2.5 (0-4) % Baso % (Auto) 0.3 (0-2) % Lymph # (Auto) 1.8 (1.2-4.9) X10*3/uL [place] # (Auto) 1.1 (0.1-1.2) X10*3/uL Eos # (Auto) 0.3 (0.0-0.4) X10*3/uL Baso # (Auto) 0.0 (0.0-0.2) X10*3/uL Abs Immat Gran (auto) 0.07 H (0.00-0.03) X10*3/uL Absolute Neuts (auto) 8.4 H (2.0-8.3) x10*3/uL Absolute Nucleated RBC 0.000 (0.0-0.012) X10*3/uL Nucleated RBC % (auto) 0.0 (0.0-0.2) /100WBC Sodium 141 (135-145) mmol/L Potassium 3.9 (3.3-5.1) mmol/L Chloride 105 (96-108) mmol/L Carbon Dioxide 27 (22-29) mmol/L Anion Gap 13 (12-20) BUN 11 (9-16) mg/dL Creatinine 0.99 (0.5-1.4) mg/dL Estim Creat Clear Calc 65.2 Estimated GFR > 60 Random Glucose 104 (60-115) mg/dL Calcium 8.7 (8.4-10.2) mg/dL Total Bilirubin 0.7 (0.0-1.0) mg/dL AST 37 (5-37) U/L ALT 42 H (0-40) U/L Alkaline Phosphatase 105 (39-117) U/L B-Natriuretic Peptide 293 H (<100) pg/mL Total Protein 7.9 (6.5-8.0) g/dL Albumin 3.9 (3.5-5.0) g/dL Influenza Type A (PCR) POSITIVE A (Negative) Influenza Type B (PCR) NEGATIVE (Negative) RSV RNA Qual (PCR) NEGATIVE (Negative) SARS-CoV-2 RNA (RT-PCR) NEGATIVE (Negative) Independent Interpretation I performed an independent interpretation of an: Plain X-Ray Interpretation: Chest x-ray per my independent interpretation shows some peribronchial cuffing of the left lower field, otherwise no consolidation and no other acute cardiopulmonary abnormalities. Discharge Plan Discharge Clinical Impression: Influenza Patient Disposition: Home, Self-Care Instructions: Influenza (ED) Additional Instructions: You can use 2-4 puffs the albuterol inhaler for wheezing and coughing if you find benefit. Please return with any fevers over 100 degrees F, worsening difficulty breathing or weakness and inability to care for yourself at home. Prescriptions: No Action omeprazole 20 mg capsule,delayed release(DR/EC) See Rx Instructions .ROUTE .COMPLEX Qty: 90 3RF Dose Instruction: TAKE 1 CAPSULE BY MOUTH EVERY DAY Rx Instructions: TAKE 1 CAPSULE BY MOUTH EVERY DAY cetirizine 10 mg tablet 1 tab PO DAILY clonazepam [Klonopin] 0.5 mg tablet 0.5 tab PO DAILY atenolol 25 mg tablet 1 tab PO QPM amlodipine 10 mg tablet 1 tab PO QAM ibuprofen 600 mg tablet 1 tab PO BID PRN (Reason: pain) losartan 100 mg tablet 1 tab PO QAM fluticasone propionate 50 mcg/actuation spray,suspension 1 spray intranasal BID fluticasone propionate [Flovent HFA] 110 mcg/actuation HFA aerosol inhaler 2 puff inhalation BID Certavite-Antioxidant 18-400 mg-mcg tablet 1 tab PO DAILY sertraline 100 mg tablet 1.5 tab PO DAILY oxycodone-acetaminophen 5-325 mg tablet 1 tab PO Q12H PRN (Reason: Pain) aspirin 81 mg tablet,delayed release (DR/EC) 81 mg PO DAILY atorvastatin 20 mg tablet 20 mg PO DAILY cholecalciferol (vitamin D3) 50 mcg (2,000 unit) tablet 50 mcg PO DAILY sertraline 50 mg tablet 50 mg PO DAILY quetiapine 100 mg tablet 100 mg PO BEDTIME melatonin 5 mg tablet 5 mg PO BEDTIME tamsulosin 0.4 mg capsule 0.4 mg PO BEDTIME donepezil 5 mg tablet 5 mg PO DAILY eszopiclone 3 mg tablet 3 mg PO BEDTIME PRN (Reason: Insomnia) diclofenac sodium 75 mg tablet,delayed release (DR/EC) 75 mg PO BID nitrofurantoin monohyd/m-cryst 100 mg capsule 1 cap PO BID trihexyphenidyl 2 mg tablet PO Dayvigo 5 mg tablet 5 mg PO BEDTIME PRN (Reason: insomnia) acetaminophen 500 mg tablet PO clotrimazole 1 % cream topical DAILY Arnuity Ellipta 200 mcg/actuation blister with device 1 inh inhalation DAILY Salonpas (capsaicin-menthol) 0.025-1.25 % adhesive patch,medicated 1 patch topical BID-TID PRN (Reason: pain) 7 Days Qty: 6 3RF Rx Instructions: may leave on area for up to 8 hrs Print Language: Indonesian
[2024-08-25 12:17] VITALS: PULSE 71; RESP 18; O2SAT 97
[2024-08-25] MEDS: Albuterol/Iprat 2.5/0.5MG 3 ML AMPUL.NEB INHALE (12:27)
[2024-08-25 12:32] LABS: Alanine Aminotransferase 42 U/L (0-40); Albumin Level 3.9 g/dL (3.5-5.0); Alkaline Phosphatase 105 U/L (39-117); Anion Gap 13 (12-20); Aspartate Amino Transferase 37 U/L (5-37); Bilirubin Total 0.7 mg/dL (0.0-1.0); Blood Urea Nitrogen 11 mg/dL (9-16); Calcium 8.7 mg/dL (8.4-10.2); Carbon Dioxide 27 mmol/L (22-29); Chloride 105 mmol/L (96-108); Creatinine Clr Calc Pharmacy 65.2; Estimated Glomerular Filt Rate > 60; Glucose Random 104 mg/dL (60-115); Potassium 3.9 mmol/L (3.3-5.1); Sodium 141 mmol/L (135-145); Total Protein 7.9 g/dL (6.5-8.0)
--- NOTE | 2024-08-25 12:51 | PC.NURSE ---
Pt maintained at 96% RA during O2 ambulation trial no complaints of dizziness.
[2024-08-25 13:43] VITALS: BP 00/00; PULSE 71; RESP 18; TEMP -17.7; TEMP 0
== END 2024-08-25 13:44 | disposition home or self-care (01) ==
PROVIDERS: Emergency Provider Emergency Medicine; PCP General Practice
DX: J10.1 Influenza due to other identified influenza virus with other respiratory manifestations (principal); R05.9 Cough, unspecified; R07.89 Other chest pain; R06.02 Shortness of breath; Z03.818 Encounter for observation for suspected exposure to other biological agents ruled out; Z79.899 Other long term (current) drug therapy
CPT/HCPCS: 0241U; 36415; 71045; 80053; 83880; 85025; 94640; 99283; 99284

== ENCOUNTER → 2024-08-25 10:28 | Outpatient (BNV) | payer OTHER, SELFPAY | PROVIDERS: Emergency Provider Emergency Medicine; PCP General Practice; Visit Provider Radiology Vascular & Interventional Radiology | DX: R05.9 Cough, unspecified (principal) | CPT/HCPCS: 71045 ==

== ENCOUNTER → 2024-08-28 09:51 | Outpatient (REF) | payer OTHER, SELFPAY ==
--- NOTE | 2024-08-28 09:55 | CA_ITS ---
Transthoracic Echocardiogram Patient (Last, First, Middle): Eddie Person, Gender: Male Date of : 1955 Age: 69 Procedure Date: 08/28/2024 Procedure Type: Transthoracic Echocardiogram Location: OP Height: 160.02 cm Weight: 77.11 kg BSA: 1.80 m2 Heart Rate: bpm BP: 160 / 80 mmHg Vendor Management Specialist: TO Referring MD: Phuong Cortes MD Head Wrestling Coach: Efren Fernández MD Symptoms: R01.1 HEART MURMUR Study Quality: Adequate w contrast ECG Rhythm: Sinus Conclusions: - 1. Normal LV ejection fraction of 60 65% with moderate asymmetric septal hypertrophy with possible mild obstructive physiology with impaired relaxation filling pattern 2. Cardiac valvular Dopplers within normal limits 3. No gross pericardial effusion Findings Procedure Information Contrast agent, definity, is being given per protocol without apparent complications. Left Ventricle Normal left ventricular size, thickness, and systolic function. The visually estimated ejection fraction is between 60-65%. There is dynamic left ventricular obstruction. There is systolic anterior motion of the mitral valve. Spectral Doppler is indicative of an impaired relaxation filling pattern. E/E prime ratio is between 8 and 15 consistent with indeterminate filling pressures. There is moderate septal asymmetric hypertrophy. There is mildly increased gradient 10 mm across the LVOT. Valsalva maneuver was not performed Right Ventricle Normal right ventricular cavity size and systolic function. Atria The left atrium is mildly dilated. There is no evidence of interatrial shunt. The right atrium is normal in size. Aortic Valve Normal aortic valve structure and function. There is no aortic valve stenosis. There is no aortic valve regurgitation. Mitral Valve There is mild anterior and posterior mitral leaflet thickening. There is mild mitral valve regurgitation. There is no mitral valve stenosis. Pulmonic Valve The pulmonic valve was not well visualized. Tricuspid Valve Likely normal tricuspid valve structure and function. Tricuspid regurgitation envelope is inadequate for calculation of right ventricular systolic pressure. Normal right atrial pressure. Great Vessels All visible segments of the aorta are normal in size. The pulmonary artery was not well visualized. Venous The inferior vena cava is normal in size and collapses greater than 50% with inspiration. Pericardium/Pleural There is no evidence of pericardial effusion. Prior Study Comparison Changes noted compared to prior study dated: 05/31/2022. moderate asymmetric septal hypertrophy noted. Possibility of hypertrophic cardiomyopathy Measurements 2D Linear Measurements IVSd: 1.50 0.6-0.9/0.6-1.0 cm LVIDd: 4.74 3.9-5.3/4.2-5.9 cm LVIDd Index: 2.63 2.4-3.2/2.2-3.1 cm/m2 LVIDs: 2.96 2.0-3.6 cm LVPWd: 0.98 0.7-1.1 cm LA Diam: 3.70 2.7-3.8/3.0-4.0 cm LAIDs Index: 2.06 1.5-2.3 cm/m2 LV Mass: 280.50 67-162/88-224 g LV Mass Index: 155.83 43-95/49-115 g/m2 LVOT Diam: 2.00 3.0+(-)1.3 cm 2D Systolic Function EF 4C: 58.60 >55% EF 2C: 64.20 >55% EF BiP: 61.80 >55% Mitral Valve MV Pk E: 0.57 MV PK A: 0.64 MV Decel Time: 157.00 E/A: 0.90 E'Lateral: 7.18 E'Medial: 5.33 E/E' Med: 10.70 E/E' Lat: 8.00 PHT: 46.00 MVA PHT: 4.78 Decel Stanley: 3.64 Aortic Valve AoV Pk Vu: 1.84 AoV Mn Vu: 1.25 AoV VTI: 0.33 AoV Pk Grad: 14.00 Aov Mn Grad: 7.00 VEL Cont.VTI: 3.36 LVOT LVOT Pk Vu: 1.84 LVOT Mn Vu: 1.27 LVOT VTI: 0.35 LVOT Pk Grad: 14.00 LVOT Mn Grad: 7.00 LVOT Diam: 2.00 LVOT Area: 3.14 Diastolic Function MV Pk E: 0.57 MV Pk A: 0.64 E/A: 0.90 E'Medial: 5.33 E/E' Med: 10.70 E' Laterial: 7.18 E/E' Lat: 8.00 Right Ventricle TAPSE (mm): 25.60 TVS' Vu: 13.70 Tricuspid Valve RA Press: 3.00 Great Vessels Aorta Sinus of Valsalva: 3.05 2.0-3.5 cm Ao Asc: 3.00 2.1-3.4 cm Updated in Other Vendor System with Status of Final Efren Fernández MD electronically signed on 08/29/2024 11:35:24 AM with status of Final
--- OUTSIDE RECORDS SUMMARY | 2024-08-28 11:21 | XMS_ITS | Data Portability ---
Author Organization [facility] Address [address] [place] [phone] Care Team Providers Care Site Medical Director Name Role Phone [facility] Referring Provider [facility] Referring Provider Assessment Encounter Date Assessment Date Assessment LastModified by Organization Details LastModified Time 01/06/2022 01/06/2022 I have reviewed and agree with the Assessment and Plan as documented by the Flavoring Maker. I provided real -time medical direction via phone for this encounter, and was available for additional phone based assistance as needed. Patient/ family given the opportunity to ask questions. [email or web address] Not available 01/06/2022 15:25:06 01/08/2022 01/08/2022 I have reviewed and agree with the Assessment and Plan as documented by the Flavoring Maker. I provided real -time medical direction via phone for this encounter, and was available for additional phone based assistance as needed. Patient/ familygiven the opportunity to ask questions. [email or web address] Not available 01/08/2022 12:04:45 Plan of Treatment Reminders Order Date Submit Date Provider Last Modified By Organization Details Last Modified Time Details Appointments None recorded. Lab cmp, whole blood + pietro 2021 022 [email or web address] 0 [facility], [address] [place] [address], [id number], 12:03:59 cmp, whole blood + pietro 2021 022 [email or web address] 0 [facility], [address] [place] [address], [id number], 17:09:53 Referral None recorded. Procedures IV insertion (PROC) 2021 022 [email or web address] 0 Not available 15:24:30 Surgeries None recorded. Imaging None recorded. Medication Orders Tylenol Extra Strength 500 mg tablet 2021 022 [email or web address] 0 [facility], [address] [place] [address], [id number], 12:03:59 sodium chloride 0.9 % intravenous solution 2021 022 [email or web address] 0 Not available 15:24:30 ondansetron HCl (PF) 4 mg/2 mL injection syringe 2021 022 [email or web address] 0 Not available 15:24:30 metronidazo le 500 mg tablet 2021 [facility], [address] [place] [address], [id number], 17:11:21 levofloxaci n 500 mg tablet 2021 [facility], [address] [place] [address], [id number], 17:11:21 ondansetron 4 mg disintegrat ing tablet 2021 [facility], [address] [place] [address], [id number], 17:11:22 levofloxaci n 500 mg tablet 2021 022 [email or web address] 0 [facility], [address] [place] [address], [id number], 2 17:02:44 loperamide 2 mg capsule 2021 022 [email or web address] 0 [facility], [address] [place] [address], [id number], 2 17:02:44 Patient TargetsNo targets recorded. Patient Instructions Encounter Date Encounter Id Patient Instructions Last Modified By Organization Details Last Modified Time 01/08/2022 [id number] infusion, normal saline* [email or web address] Not available 01/08/2022 12:03:59 orthostatic vitals* [email or web address] Not available 01/08/2022 12:03:59 Reason for Referral None Reported. Results Created Date Observation Date Name Description Value Unit Range Abnormal Flag Note LastModifiedBy Organization Detail LastModifiedTime 01/07/20 22 01/06/2022 cmp, whole blood + picco lo BUN 20 Not Available [facility] [address], [address], 01/06/2022 17:07:53 01/07/20 22 01/06/2022 cmp, whole blood + picco lo Ca 10.2 Not Available [facility] [address], [address], 01/06/2022 17:07:53 01/07/20 22 01/06/2022 cmp, whole blood + picco lo CI- normal Not Available [facility] [address], [address], 01/06/2022 17:07:53 01/07/20 22 01/06/2022 cmp, whole blood + picco lo CRE 1.2 Not Available [facility] [address], [address], 01/06/2022 17:07:53 01/07/20 22 01/06/2022 cmp, whole blood + picco lo GLU 115 Not Available [facility] [address], [address], 01/06/2022 17:07:53 01/07/20 22 01/06/2022 cmp, whole blood + picco lo K+ 4.7 Not Available [facility] [address], [address], 01/06/2022 17:07:53 01/07/20 22 01/06/2022 cmp, whole blood + picco lo Na+ 145 Not Available [facility] [address], [address], 01/06/2022 17:07:53 01/07/20 22 01/06/2022 cmp, whole blood + picco lo tCO2 29 Not Available [facility] [address], [address], 01/06/2022 17:07:53 01/07/20 22 01/06/2022 cmp, whole blood + picco lo TP 9 Not Available [facility] [address], [address], 01/06/2022 17:07:53 01/09/20 22 01/08/2022 cmp, whole blood + picco lo BUN 13 Not Available [facility] [address], [address], 01/08/2022 11:40:17 01/09/20 22 01/08/2022 cmp, whole blood + picco lo Ca 9.2 Not Available [facility] [address], [address], 01/08/2022 11:40:17 01/09/20 22 01/08/2022 cmp, whole blood + picco lo CI- normal Not Available [facility] [address], [address], 01/08/2022 11:40:17 01/09/20 22 01/08/2022 cmp, whole blood + picco lo CRE 1 Not Available [facility] [address], [address], 01/08/2022 11:40:17 01/09/20 22 01/08/2022 cmp, whole blood + picco lo GLU 104 Not Available [facility] [address], [address], 01/08/2022 11:40:17 01/09/20 22 01/08/2022 cmp, whole blood + picco lo K+ 4.2 Not Available [facility] [address], [address], 01/08/2022 11:40:17 01/09/20 22 01/08/2022 cmp, whole blood + picco lo Na+ 144 Not Available [facility] [address], [address], 01/08/2022 11:40:17 01/09/20 22 01/08/2022 cmp, whole blood + picco lo tCO2 27 Not Available [facility] [address], [address], 01/08/2022 11:40:17 01/09/20 22 01/08/2022 cmp, whole blood + picco lo TP 8.2 Not Available [facility] [address], [address], 01/08/2022 11:40:17 Result Notes None recorded. Medical Equipment None Reported. Allergies Allergen ID Allergen Name Allergen Category Reaction Reaction Severity Criticality Documentation Date Start Date Code Code System Note Provider Name and Address Organization Details Recorded Time 690 Product containin g penicilli n (product) medicatio n Not available Not available Not available 01/06/2022 21935 8001 SNOMED Not Available [facility] - production 4 03:46:17 691 Substance with sulfonami de structure and antibacte rial mechanism of action (substanc e) medicatio n Not available Not available Not available 01/06/2022 52777 8003 SNOMED Josselin Patel MD [address] [place] [address],[address], [place], [address], Performance Indicator - [employer], [employer] 2 15:03:26 692 contact metal agent environme nt Not available Not available Not available 01/06/2022 57414 UNK Josselin Patel MD [address] [place] [address],[address], [place], [address], [place] - [facility], [employer] 2 15:03:36 693 morphine medicatio n Not available Not available Not available 01/06/2022 7052 RxNorm Josselin Patel MD [address] [facility],[address], [place], [address] , RAJINDER ERWIN 15:24:39 Medications Name Sig [...] polyethylene glycol 3350 17 gram/dose oral powder [id number] G ORALLY ONCE FOR 1 DAY TAKE [...] /min 133 mm[Hg] 72 mm[Hg] Not Available [employer] - [employer] 2 15:06:36 Date Recorded Body weight Respiratory [...] Address Organization Details Last Updated DateTime 2 00283.4 16 g 18 /min 160.02 cm 80 /min 100 % 100 % 97.9 [degF] 97.9 [degF] 39062.4 16 g 100 % 100 % 160.02 cm 18 /min 80 /min 168 mm[Hg] 106 mm[Hg] 168 mm[Hg] 106 mm[Hg] Not Available [employer] 2 12:41:22 Social History None recorded. Functional Status None recorded. Mental Status None recorded. Family History Nothing Reported. Medical History No medical history recorded. Past Encounters Encounter ID Performer Location Encounter Start Date Encounter Closed Date Diagnosis/Indication Diagnosis SNOMED-CT Code Diagnosis ICD10 Code Diagnosis Note [id number] Josselin Patel MD [facility] [address] [place] [phone] 01/06/2022 15:02:35 03/08/2022 12:16:30 Diverticulitis 699804802 K57.92 concern for c. diff- yet less likely since only 3 stools today and no foul odor. Hydrated- will continue w/po hydration/ anti emetics/ anti diarrheal otc- will restart antibiotic today and x 3 more days- will increase flagyl to 3 x per day//patie nt unable to give stool spec while [facility] there in home.[facility] had no flagyl- did have Levaquin. May have APAP 650 mg q 6 hr prn. TO F/U PCP tomorrow. Pat aware if develops Temp > 100.4/ severe abd pain / syncope/ black or bloody emesis or stool- to go to the ER [id number] Josselin Patel MD [facility] [address] [place] [phone] 01/08/2022 11:23:28 03/08/2022 21:05:14 Diverticulitis 752350923 K57.92 Hydrated- will continue w/po hydrationa dvised [...] Bruce Member ID Guarantor Name 01/06/2022 1 [facility] - DOS PRIOR TO 2022 - DUAL ELIGIBLE (MEDICARE REPLACEMENT/ADV ANTAGE - HMO) Eddie Raza [id number] Eddie Person 01/08/2022 1 [facility] - DOS PRIOR TO 2022 - DUAL ELIGIBLE (MEDICARE REPLACEMENT/ADV ANTAGE - HMO) Eddie Raza [id number] Eddie Person Notes Date Note Type Note [...] .................... .................... .................... .................... .................... .................... ............ Flavoring Maker Note: Pt was diagnosed with diverticulitis end [...] . Disposition: Fulfilled Josselin Patel MD [address] [facility],[address], [place], [address], Performance Indicator - Expert TA 01/06/2022 17:09:59 01/08/2022 text/html HPI: PMH: diverticulitis allergies: PCN, [facility]. He has hx of diverticulits, + loose stools, lower abd pain, afebrile. Currently taking cipro and flagyl, has follow up with PCP on Monday. Requesting [facility] visit today for ? 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 Stools loose not watery/ not black/bloody- 3 yesterday- none so far today- c/o diffuse abd pain- no fever- has had no meds for pain otc- ? dehydrated- not light headed - no syncope............. .................... .................... .................... .................... .................... .................... ......... Flavoring Maker Note: Sent to a call for a [...] soft, non-tender, non-distended, no pain with palpation. [facility] orders 1 Liter IV Fluids, POC CMP and Tylenol 500mg PO. IV access initiated, blood sample obtained. CMP results uploaded to [employer]. Pt reports feeling slightly better after IV [...] . Disposition: Fulfilled Josselin Patel MD [address] [facility],[address], [place], [address], Performance Indicator - Expert TA 01/08/2022 12:50:26
== END ==
LOC: HO.CARD 09:51
PROVIDERS: PCP General Practice; Visit Provider General Practice
DX: R01.1 Cardiac murmur, unspecified (principal)
CPT/HCPCS: 93306; Q9957

== ENCOUNTER → 2024-08-28 09:55 | Outpatient (BNV) | payer OTHER, SELFPAY | PROVIDERS: PCP General Practice; Visit Provider Internal Medicine Cardiovascular Disease | DX: I42.1 Obstructive hypertrophic cardiomyopathy (principal) | CPT/HCPCS: 93306 ==

== ENCOUNTER 2025-03-07 14:14 | Outpatient (AMB) | payer OTHER, SELFPAY ==
[2025-03-07 14:34] VITALS: BP 168/82; PULSE 53; O2SAT 98; BMI 30.1
--- NOTE | 2025-03-07 14:34 | MHC.OFFVIS ---
Vital Signs 03/07/25 14:34 Height 5 ft 3 in Weight 170 lb 2 oz BMI 30.1 BP 168/82 H Blood Pressure Location Lt brachial Position Sitting Pulse 53 Pulse Source Pulse Oximeter Pulse Oximetry (%) 98 Oxygen Delivery Method Room Air Intake Visit Reasons: Abnormal chest X-ray Allergies Penicillins Allergy (Intermediate, Verified 03/07/25 14:36) Hives Sulfa (Sulfonamide Antibiotics) Allergy (Intermediate, Verified 03/07/25 14:36) Hives morphine Adverse Reaction (Intermediate, Verified 03/07/25 14:36) Vomiting HPI HPI Abnormal chest X-ray: Details: Eddie is a pleasant 70 year old male, never smoker, with underlying asthma, allergic rhinitis, GERD, HTN and dementia. He was referred by PCP for pulmonary evaluation and is accompanied by his daughter. He reports ongoing dyspnea, dry cough and intermittent wheezing since August. From referral doxycycline was prescribed around that time suggesting an URI. He was also started on Arnuity and reports symptoms were significantly improved however stopped use due to feeling better. He denies prior h/o asthma however referral with diagnosis and he admits to having a PFT many years ago for dyspnea. Recent CXR also revealed a reticular pattern, denies prior abnormal imaging. He denies any personal or family h/o CTD. He denies any occupational exposures. [facility] Medical History Memory problem Erectile dysfunction Depressed Anxiety Back pain HTN (hypertension) HLD (hyperlipidemia) Surgical History History of esophagogastroduodenoscopy (EGD) Hx of inguinal hernia repair Hx of colonoscopy Social History (Updated 03/07/25 @ 14:36 by Emerald Pearson CMA) Are you a primary child care attendant school to a significant other at home: No Do you presently have visiting nurse or other home services: Yes (daughter, WIRELESS MANAGER, [employer]) Alcohol intake: never Patient Tobacco Use Status: Never used Tobacco Tobacco use type: Cigarette Review of Systems Const Denies chills, Denies excessive sweating, Denies fever(s), Denies headache(s) and Denies night sweats Eyes Denies dry eyes, Denies irritation and Denies itchy eyes ENT Reports Normal hearing present, Denies headache(s), Denies nasal congestion, Denies nasal discharge, Denies post nasal drip and Denies sore throat Card Denies chest pain, Denies chest pain at rest, Denies chest pain with activity, Denies claudication, Denies leg edema, Denies orthopnea and Denies paroxysmal nocturnal dyspnea Resp Denies chest congestion, Denies excessive phlegm production, Denies pain on inspiration, Denies pain with cough and Denies stridor Musc Denies myalgias Neuro Reports Normal hearing present and Denies headache(s) Endo Denies excessive sweating Miguelito/Lymph Denies lymphadenopathy Aller/Immun Denies itchy eyes and Denies seasonal rhinorrhea Physical Exam Vital Signs: Last Vital Signs Pulse 53 03/07/25 14:34 BP 168/82 H 03/07/25 14:34 Pulse Ox 98 03/07/25 14:34 Oxygen Delivery Method Room Air 03/07/25 14:34 BMI result Body Mass Index 30.1 Const General: cooperative, healthy appearing, comfortable, no acute distress, well developed and alert Orientation/consciousness: patient oriented x3 Limitations: no limitations HEENT Head: Yes normal to inspection, Yes normocephalic and Yes atraumatic Ears: hearing grossly normal bilaterally and external ears normal Eyes General: appearance normal, both eyes and all related structures Eyelids: Yes eyelids normal Sclerae: sclerae normal EOM: EOMs intact bilaterally Neck Neck: Yes normal visual inspection and Yes no lymphadenopathy Lymphatic: no lymphadenopathy noted Chest Chest palpation & inspection: normal inspection of the chest Resp Effort & Inspection: normal respiratory effort, able to speak in complete sentences, no audible wheezes, no cough, no stridor, not tachypneic, no tripod positioning and no use of accessory muscles Auscultation: diminished lung sounds Cardio Jugular venous distension: no JVD Rate: regular rate Rhythm: regular rhythm Skin Other: warm, dry General skin exam: no rashes or lesions noted Neuro General: patient oriented x3 Cranial nerves: Yes Normal hearing present Cognition (Neuro): normal cognition Gait exam (Neuro): Normal gait present Extrem General: Yes normal to inspection, Yes capillary refill normal, Yes no clubbing, cyanosis or edema and Yes no pedal edema Psych Appearance: grossly normal and well kempt Speech and movement: Normal speech and movement present and Clear speech present Affect: normal affect Attitude: cooperative Thought process: Normal thought process present Thought content: Normal thought content present Insight: Good insight present (Psych) Judgement: Good judgement present (Psych) Assessment & Plan Assessment & Plan (1) Asthma: Code(s): J45.909 - Unspecified asthma, uncomplicated Category: Medical (2) Abnormal chest xray: Code(s): R93.89 - Abnormal findings on diagnostic imaging of other specified body structures Category: Medical Plan Eddie presents for pulmonary evaluation for likely poorly controlled asthma, as he reports resolution of symptoms with the use of Arnuity. Encouraged patient to restart Arnuity, discussing importance of good oral hygiene to prevent thrush. Will send for PFT to assess for an obstructive component. Will also send for chest CT given abnormal CXR. All questions were answered and patient is in agreement of plan. Will follow up to review results or sooner if needed. Orders: Orders PFT pulmonary function test Today J45.909 - Unspecified asthma, uncomplicated CT chest wo IV con Today R93.89 - Abnormal findings on diagnostic imaging of other specified body structures Medications: New fluticasone furoate 200 mcg/actuation (Arnuity Ellipta) 1 inh inhalation DAILY 30 ea 3RF Coding Level of Care Code New Pt Level 4 (23627) Diagnoses Asthma J45.909 Abnormal chest xray R93.89
--- OUTSIDE RECORDS SUMMARY | 2025-03-07 17:10 | XMS_ITS | Patient Health Record ---
Author Organization [facility] Address [address] [place] [phone] Care Team Providers Care Shoemaking Finisher Name Role Phone Erlin Glover Unavailable [phone] Reason For Referral No Information Plan Of Treatment No Information
== END 2025-03-07 15:12 | disposition home or self-care (01) ==
LOC: HO.HPSW 14:15
PROVIDERS: PCP General Practice; Referring Provider General Practice; Visit Provider Nurse Practitioner Family
DX: J45.909 Unspecified asthma, uncomplicated (principal); R93.89 Abnormal findings on diagnostic imaging of other specified body structures
CPT/HCPCS: 99204

== ENCOUNTER → 2025-03-07 14:14 | Outpatient (BNVA) | payer OTHER, SELFPAY | PROVIDERS: PCP General Practice; Referring Provider General Practice; Visit Provider Nurse Practitioner Family | DX: J45.909 Unspecified asthma, uncomplicated (principal); R93.89 Abnormal findings on diagnostic imaging of other specified body structures | CPT/HCPCS: 99202 ==

== ENCOUNTER 2025-04-12 09:57 | Emergency (ER) | payer OTHER, SELFPAY ==
--- NOTE | ~2025-04-12 | CT_ITS ---
CLINICAL HISTORY: fall with head strike CT cervical spine without contrast Comparison: None provided Findings: Normal vertebral body alignment. There is heterogeneity of bone density with areas of relative lucency. There is coarsening of trabecular markings. Multilevel degenerative disc disease and facet osteoarthritis. No central canal stenosis. No acute fractures or dislocations. Visualized intracranial contents are unremarkable. No cervical fluid collections or masses. No consolidation or effusion at the lung apices. IMPRESSION: 1. No acute cervical spine fracture. 2. Bone heterogeneity with apparent coarsening of trabecular markings may be related to Paget's disease. Malignancy not completely excluded. This could be further evaluated with bone scan. This document has been electronically signed by: Anitha Craig MD on 04/12/2025 13:31:01
--- NOTE | ~2025-04-12 | XR_ITS ---
CLINICAL HISTORY: fall bruising 4 view right wrist Comparison: None provided Findings: Bones intact. No dislocations. No significant arthritic change or erosions. No radiopaque foreign body. IMPRESSION: 1. No acute findings This document has been electronically signed by: Anitha Craig MD on 04/12/2025 15:03:43
--- NOTE | ~2025-04-12 | XR_ITS ---
CLINICAL HISTORY: fall bruising 3 view right hand Comparison: None provided Findings: Bones intact. No dislocations. Mild arthritic change. No erosions. No radiopaque foreign body. IMPRESSION: No acute bony abnormality. This document has been electronically signed by: Anitha Craig MD on 04/12/2025 15:20:58
--- NOTE | ~2025-04-12 | CT_ITS ---
CLINICAL HISTORY: fall with head strike CT head without contrast Comparison: None provided Findings: No intra-axial mass, midline shift, hydrocephalus, or acute hemorrhage. Involutional change brain parenchyma, compatible with age. Mild white matter disease. There is no sinus or mastoid fluid. The orbits are unremarkable. No skull fracture. IMPRESSION: No skull fracture or intracranial hemorrhage. This document has been electronically signed by: Anitha Craig MD on 04/12/2025 13:28:22
--- NOTE | ~2025-04-12 | XR_ITS ---
CLINICAL HISTORY: fall 4 view left knee Comparison: None provided Findings: Bones intact. No dislocations. Very mild arthritic change. A patellar enthesophyte is incidentally noted. No joint effusion. No radiopaque foreign body. IMPRESSION: 1. No acute findings. This document has been electronically signed by: Anitha Craig MD on 04/12/2025 14:25:35
--- OUTSIDE RECORDS SUMMARY | 2025-04-12 10:00 | XMS_ITS | Encounter Summary ---
Author Organization [employer] Address [address] [facility] [address] [place] [address] Care Team Providers Care Summer Law Clerk Name Role Phone Phuong Cortes MD Primary Care Provider [phone] Encounter Details Date Type Department Care Team (Late st Contact Info) Description 04/12/2025 10:00 AM EDT Office Visit [facility] [address] [place] [address] Sara Bennett, [facility] [address] [place] [address] Fall, initial encounter (Primary Dx) Social History Tobacco Use Types Packs/Day Years Used Date Smoking Tobacco: Never Passive Smoke Exposure: Never Smokeless Tobacco: Never Alcohol Use Standard Drinks/Week Comments Never 0 (1 standard drink = 0.6 oz pur e alcohol) Alcohol Answer Date Recorded How often do you have a drink containing alcohol ? 1 09/08/2024 How many drinks containing a lcohol do you have on a typical day when you are drinking? 0 09/08/2024 How often do you have six or more drinks on one occasion? 0 09/08/2024 Depression Answer Date Recorded Patient Health Questionnaire-9 Score 5 03/28/2025 Patient Health Questionnaire-9 Score 5 03/28/2025 Last PHQ-9: Questionnaire Data Not on file 1 Housing Stability Answer Date Recorded What is your housing situation today? I have bennie leong 04/11/[address] you li ve. Do you have problems with any of the following? None of the above 04/11/2023 Food Insecurity Answer Date Recorded Within the past 12 months, y ou worried that your food would run out before you got money to buy more: Never True 04/11/2023 Within the past 12 months,th e food you bought just didn't last and you didn't have enough money to get more: Never True Transportation Answer Date Recorded In the past 12 months, has l ack of transportation kept you from medical appts, meetings, work or from getting things needed for daily living? Yes, it has kept me from medical appointments or getting medications. 09/12/2023 Intimate Partner Violence Answer Date R ecorded Within the last year, have y ou been afraid of your partner or ex-partner? 2 09/08/2024 Within the last year, have y ou been humiliated or emotionally abused in other ways by your partner or ex-partner? 2 Within the last year, have y ou been kicked, hit, slapped, or otherwise physically hurt by your partner or ex-partner? 2 09/08/2024 Within the last year, have y ou been raped or forced to have any kind of sexual activity by your partner or ex-partner? 2 09/08/2024 Utilities Answer Date Recorded In the past 12 months, has t he App Partner, gas, oil or water company threatened to shut off services in your home? No 04/11/2023 Depression Answer Date Recorded Patient Health Questionnaire-2 Score 2 03/28/2025 Sex and Gender Information Value Date Recorded Sex Assigned at Male 04/25/2022 10:17 AM EDT Legal Sex Male 10:17 AM EDT Gender Identity Male 04/25/2022 10:17 AM EDT Sexual Orientation Choose not to disclose 2021 10:17 AM EDT documented as of this encounter Last Filed Vital Signs Vital Sign Reading Time Taken Comments Blood Pressure 157/78 04/12/2025 9:32 AM EDT Pulse 52 04/12/2025 9:32 AM EDT Temperature 36.7 C (98 F) 04/12/2025 9:32 AM EDT Respiratory Rate 13 04/12/2025 9:32 AM EDT Oxygen Saturation 95% 04/12/2025 9:32 AM EDT Inhaled Oxygen Concentration - - Weight 79.9 kg (176 lb 3.2 oz) 04/12/2025 9:32 A M EDT Height 160 cm (5' 3 ) 04/12/2025 9:32 AM EDT Body Mass Index 31.21 04/12/2025 9:32 AM EDT documented in this encounter Progress Notes * Sara Bennett CNP - 04/12/2025 10:00 AM EDT Eddie Person is a 70 y.o. male who presents for a acute visit. Pt presents with his granddaughter today who reports that he had an unwitnessed fall yesterday withh head strike on right side. Pt reports r sided facial swelling and tenderness. He endorses headacheand reports visual changes including shadows in his right eye. Pt is on aspirin 81mg. He also endorses right hand pain and bruising as he fell onto this hand. Problem List[1] Allergies[2] Review of Systems Vitals: 04/12/25 0932 BP: (!) 157/78 BP Location: Right arm Patient Position: Sitting BP Cuff Size: Adult Pulse: 52 Resp: 13 Temp: 98 ??F (36.7 ??C) TempSrc: Oral SpO2: 95% Weight: 176 lb 3.2 oz (79.9 kg) Height: 5' 3 (1.6 m) Physical Exam Constitutional: Appearance: Normal appearance. HENT: Head: Normocephalic. Comments: R sided facial swelling Eyes: Extraocular Movements: Extraocular movements intact. Pupils: Pupils are equal, round, and reactive to light. Cardiovascular: Rate and Rhythm: Normal rate and regular rhythm. Pulmonary: Effort: Pulmonary effort is normal. Breath sounds: Normal breath sounds. 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 Mental Status: He is alert. Mental status is at baseline. Cranial Nerves: No cranial nerve deficit. Sensory: No sensory deficit. Motor: No weakness. Coordination: Coordination normal. Psychiatric: Mood and Affect: Mood normal. Behavior: Behavior normal. Problem List Items Addressed This Visit None Visit Diagnoses Fall, initial encounter - Primary Pt is not showing any focal neurological deficits. Pt does have mead and visual changes, given age, unwitnessed fall, and aspirin use advised ED evaluation for urgent head imaging. His granddaughter agreed to bring him to [facility] today. Called in expect Current Medications[3] Sent to ED [1] Patient Active Problem List Diagnosis Allergic rhinitis Chronic neck pain Moderate dementia with other behavioral disturbance, unspecified dementia type (CMS/HCC) (HCC) Diverticulitis of intestine Erectile dysfunction Essential hypertension Gastro-esophageal reflux disease with esophagitis Gastroesophageal reflux disease with hiatal hernia Hiatal hernia Hypercholesterolemia Impaired fasting glucose Low back pain Mild intermittent asthma Mixed anxiety and depressive disorder Torticollis Tricompartment osteoarthritis of left knee Restless leg Localized osteoarthritis of right knee Nummular dermatitis Mixed stress and urge urinary incontinence Depression, recurrent (CMS/HCC) Paresthesia and pain of both upper extremities Heart murmur Hydradenitis 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's dementia (HCC) [2] Allergies Allergen Reactions Morphine Unknown Penicillins Unknown Sulfa Antibiotics Unknown [3] Current Outpatient Medications: Acetaminophen Extra Strength 500 MG tablet, TAKE 1 TABLET BY MOUTH EVERY 8 HOURS NEEDED FOR PAIN, Disp: 40 tablet, Rfl: 3 albuterol (2.5 MG/3ML) 0.083% nebulizer solution, Take 3 mL (2.5 mg) by nebulization every 4 (four)hours if needed for wheezing., Disp: 75 mL, Rfl: 3 albuterol 108 (90 Base) MCG/ACT inhaler, Inhale 2 puffs every 4 (four) hours if needed for wheezingor shortness of breath., Disp: 18 g, Rfl: 3 aspirin (Aspirin Low Dose) 81 MG EC tablet, TAKE 1 TABLET BY MOUTH AT BEDTIME, Disp: 90 tablet, Rfl: 3 atorvastatin (Lipitor) 20 MG tablet, Take 1 tablet (20 mg) by mouth in the morning., Disp: 90 tablet, Rfl: 3 Blood Pressure Monitoring (Omron 3 Series BP Monitor) device, USE TO CHECK BLOOD PRESSURE DAILY, Disp: , Rfl: ceramides (CeraVe) moisturizing cream, Apply 1 application topically if needed for dry skin., Disp:400 g, Rfl: 1 cetirizine (ZyrTEC) 10 MG tablet, TAKE 1 TABLET BY MOUTH EVERY DAY, Disp: 90 tablet, Rfl: 3 cholecalciferol VITAMIN D (Vitamin D-3) 50 MCG (2000 UT) tablet, TAKE 1 TABLET BY MOUTH EVERY DAY IN THE MORNING, Disp: 90 tablet, Rfl: 3 clonazePAM (KlonoPIN) 0.5 MG tablet, , Disp: , Rfl: diclofenac (Voltaren) 75 MG EC tablet, , Disp: , Rfl: Diclofenac Sodium 1 % gel, Apply 4 g topically if needed in the morning, at noon, in the evening, and at bedtime (pain)., Disp: 100 g, Rfl: 0 donepezil (Aricept) 10 MG tablet, TAKE 1 TABLET BY MOUTH AT BEDTIME, Disp: 90 tablet, Rfl: 3 fluticasone (Flonase) 50 MCG/ACT nasal spray, SPRAY 1 SPRAY IN EACH NOSTRIL EVERY TWELVE HOURS, Disp: 16 g, Rfl: 11 fluticasone (Flovent HFA) 110 MCG/ACT inhaler, Inhale 2 puffs in the morning and at bedtime., Disp:12 g, Rfl: 11 fluticasone furoate (Arnuity Ellipta) 200 MCG/ACT inhaler, INHALE 1 PUFF BY MOUTH EVERY DAY AT THE SAME TIME RINSE MOUTH AFTER USING, Disp: 30 each, Rfl: 11 gabapentin (Neurontin) 600 MG tablet, Take 1 tablet (600 mg) by mouth at bedtime., Disp: 90 tablet,Rfl: 3 losartan (Cozaar) 100 MG tablet, TAKE 1 TABLET BY MOUTH EVERY MORNING, Disp: 90 tablet, Rfl: 3 melatonin 5 MG tablet, TAKE 1 TABLET BY MOUTH EVERY DAY AT BEDTIME, Disp: 90 tablet, Rfl: 3 omeprazole (PriLOSEC) [address] capsule, Take 1 capsule by mouth Once per day., Disp: , Rfl: oxyCODONE-acetaminophen (Percocet) 5-325 MG tablet, , Disp: , Rfl: QUEtiapine (SEROquel) 100 MG tablet, , Disp: , Rfl: rOPINIRole (Requip) 1 MG tablet, TAKE 1 TABLET BY MOUTH AT BEDTIME, Disp: 90 tablet, Rfl: 0 sertraline (Zoloft) 100 MG tablet, , Disp: , Rfl: sertraline (Zoloft) 50 MG tablet, , Disp: , Rfl: Spacer/Aero-Holding Chambers ([facility]) misc, 1 each every 4 (four) hours if needed (asthma)., Disp: 1 each, Rfl: 0 tamsulosin (Flomax) 0.4 MG 24 hr capsule, TAKE 1 CAPSULE BY MOUTH EVERY MORNING 30 MINUTES AFTER BREAKFAST., Disp: 90 capsule, Rfl: 3 tiZANidine (Zanaflex) 2 MG tablet, take 1 tablet by mouth twice a day as needed for muscle spasm, Disp: , Rfl: trihexyphenidyl (Artane) 2 MG tablet, Take 2 tablets (4 mg) by mouth with breakfast., Disp: 180 tablet, Rfl: 1 documented in this encounter Plan of Treatment Upcoming Encounters Date Type Department Care Team (Late st Contact Info) Description 07/10/2025 11:00 AM EST Office Visit [facility] [address] [place], [place] [phone] Miranda Sherwood, OD [address] [place], [place] [phone] documented as of this encounter Visit Diagnoses Diagnosis Fall, initial encounter- Primary documented in this encounter Additional Health Concerns Assessment Noted Time PHQ-9 Depression Total Score: 5 03/28/20 25 12:20 PM EDT documented as of this encounter Care Teams Summer Law Clerk Relationship Specialty Start Date End Date Phuong Cortes MD [address] [place], [place] [phone] PCP - General Family Medicine 02/04/21 [facility] 09/11/24 documented as of this encounter
[2025-04-12 10:10] VITALS: BP 156/70; PULSE 52; RESP 18; TEMP 37.1; O2SAT 96; BMI 29.7
--- OUTSIDE RECORDS SUMMARY | 2025-04-12 10:22 | XMS_ITS | Encounter Summary ---
Author Organization [employer] Address [address] [facility] [address] [place] [address] Care Team Providers Care Quarter Folder Name Role Phone Phuong Cortes MD Primary Care Provider [phone] Reason for Visit * Reason Onset Date Comments FYI 06/20/2024 Encounter Details Date Type Department Care Team ([facility] st Contact Info) Description 06/20/2024 Telephone [facility] [address] [place], [place] [phone] Phuong Cortes MD [address] [place], [place] [phone] FYI Social History Tobacco Use Types Packs/Day Years Used Date Smoking Tobacco: Never Passive Smoke Exposure: Never Smokeless Tobacco: Never Alcohol Use Standard Drinks/Week Comments Never 0 (1 standard drink = 0.6 oz pur e alcohol) Depression Answer Date Recorded Patient Health Questionnaire-9 Score 9 09/12/2023 Patient Health Questionnaire-9 Score 9 09/12/2023 Last PHQ-9: Questionnaire Data Not on file 0 09/12/2023 Housing Stability Answer Date Recorded What is [...] from medical appointments or getting medications. 09/12/2023 Utilities Answer Date Recorded In the past 12 months, has t he electric, gas, oil or water company threatened to shut off services in your home? No 04/11/2023 Depression Answer Date Recorded Patient Health Questionnaire-2 Score 6 09/12/2023 Sex and Gender Information Value Date Recorded Sex Assigned at Male 04/25/2022 10:17 AM EDT Legal Sex Male 10:17 AM EDT Gender Identity Male 04/25/2022 10:17 AM EDT Sexual Orientation Choose not to disclose 2021 10:17 AM EDT documented as of this encounter Miscellaneous Notes * Telephone Encounter - Wai Alberto - 06/20/2024 10:33 AM EST Tc from Daughter requested to cancel nurse visit today and will follow up with pcp on Monday. documented in this encounter Plan of Treatment Upcoming Encounters Date Type Department Care Team (Late st Contact Info) Description 07/10/2025 11:00 AM EST Office Visit [facility] [address] [place] [address] Miranda Sherwood, OD [address] [place] [address] documented as of this encounter Visit Diagnoses Not on filedocumented in this encounter Additional Health Concerns Assessment Noted Time PHQ-9 Depression Total Score: 9 09/12/19 24 10:36 AM EDT documented as of this encounter Care Teams Quarter Folder Relationship Specialty Start Date End Date Phuong Cortes MD [address] [place] [address] PCP - General Family Medicine 02/04/21 [facility] 04/08/21 10/17/24 [employer] 09/11/24 documented as of this encounter
--- OUTSIDE RECORDS SUMMARY | 2025-04-12 10:22 | XMS_ITS | Clinical Summary ---
Author Organization [employer] Address [address] [facility] 7[address] [place] [address] Care Team Providers Care Cook Chill Technician Name Role Phone Phuong Cortes MD Primary Care Provider Allergies Active Allergy Reactions Criticality Noted Date Comments Morphine Unknown 09/07/2023 Penicillins Unknown 09/07/2023 Sulfa Antibiotics Unknown 08/22/2017 Medications fluticasone (Flovent HFA) 110 MCG/ACT inhalerIndicati ons:Mild persistent asthma in adult without complication Inhale 2 puffs in the morning and at bedtime. 12 g 11 022 Active Blood Pressure Monitoring (Omron 3 Series BP Monitor) device USE TO CHECK BLOOD PRESSURE DAILY 022 Active clonazePAM (KlonoPIN) 0.5 MG tablet 023 Active diclofenac (Voltaren) 75 MG EC tablet 023 Active oxyCODONE-aceta minophen (Percocet) 5-325 MG tablet 023 Active QUEtiapine (SEROquel) 100 MG tablet 023 Active sertraline (Zoloft) 100 MG tablet 023 Active sertraline (Zoloft) 50 MG tablet 023 Active ceramides (CeraVe) moisturizing cream Apply 1 application topically if needed for dry skin. 400 g 1 023 Active cholecalciferol VITAMIN D (Vitamin D-3) 50 MCG (1999 UT) tabletIndicatio ns:Vitamin D deficiency TAKE 1 TABLET BY MOUTH EVERY DAY IN THE MORNING 90 tablet 3 Active fluticasone furoate (Arnuity Ellipta) 200 MCG/ACT inhaler INHALE 1 PUFF BY MOUTH EVERY DAY AT THE SAME TIME RINSE MOUTH AFTER USING 30 each Active fluticasone (Flonase) 50 MCG/ACT nasal sprayIndication s:Mild persistent asthma in adult without complication SPRAY 1 SPRAY IN EACH NOSTRIL EVERY TWELVE HOURS 16 g Active omeprazole (PriLOSEC) [address] capsule Take 1 capsule by mouth Once per day. Active Spacer/Aero-Hol ding Chambers (OptiChamber Yoselin) misc 1 each every 4 (four) hours if needed (asthma). 1 each Active Diclofenac Sodium 1 % gel Apply 4 g topically if needed in the morning, at noon, in the evening, and at bedtime (pain). 100 g Active melatonin 5 MG tablet TAKE 1 TABLET BY MOUTH EVERY DAY AT BEDTIME 90 tablet Active donepezil (Aricept) 10 MG tablet TAKE 1 TABLET BY MOUTH AT BEDTIME 90 tablet Active losartan (Cozaar) 100 MG tablet TAKE 1 TABLET BY MOUTH EVERY MORNING 90 tablet Active tamsulosin (Flomax) 0.4 MG 24 hr capsule TAKE 1 CAPSULE BY MOUTH EVERY MORNING 30 MINUTES AFTER BREAKFAST. 90 capsule Active atorvastatin (Lipitor) 20 MG tablet Take 1 tablet (20 mg) by mouth in the morning. 90 tablet Active aspirin (Aspirin Low Dose) 81 MG EC tablet TAKE 1 TABLET BY MOUTH AT BEDTIME 90 tablet Active albuterol 108 (90 Base) MCG/ACT inhaler Inhale 2 puffs every 4 (four) hours if needed for wheezing or shortness of breath. 18 g 2025 Active albuterol (2.5 MG/3ML) 0.083% nebulizer solution Take 3 mL (2.5 mg) by nebulization every 4 (four) hours if needed for wheezing. 75 mL 2025 Active Acetaminophen Extra Strength 500 MG tablet TAKE 1 TABLET BY MOUTH EVERY 8 HOURS NEEDED FOR PAIN 40 tablet 3 025 Active cetirizine (ZyrTEC) 10 MG tablet TAKE 1 TABLET BY MOUTH EVERY DAY 90 tablet 3 025 Active rOPINIRole (Requip) 1 MG tablet TAKE 1 TABLET BY MOUTH AT BEDTIME 90 tablet 025 Active tiZANidine (Zanaflex) 2 MG tablet take 1 tablet by mouth twice a day as needed for muscle spasm Active gabapentin (Neurontin) 600 MG tablet Take 1 tablet (600 mg) by mouth at bedtime. 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 180 tablet 1 Active trihexyphenidyl (Artane) 2 MG tablet 023 2024 Discontinued(R edouard (will not trigger notification to Pharmacy)) Multiple Vitamins-Minera ls (CertaVite/Anti oxidants) tablet Take 1 tablet by mouth in the morning. TAKE 1 TABLET BY MOUTH EVER DAY 90 tablet 3 023 2024 Discontinued(T herapy completed) DayVigo 5 MG tablet TAKE 1 TABLET BY MOUTH EVERY DAY NEEDED FOR SLEEP 023 2024 Discontinued(T herapy completed) clotrimazole (Lotrimin) 1 % cream APPLY 1 GRAM TOPICALLY TWICE DAILY FOR 21 DAYS 30 g 2 024 2024 Discontinued(T herapy completed) Multiple Vitamins-Iron (Tab-A-Yesica/Iro n/Beta Carotene) tablet TAKE 1 TABLET BY MOUTH EVERY DAY IN THE MORNING 90 tablet 3 024 2024 Discontinued(T herapy completed) multivitamin with minerals (Centrum) 9-200 mg-mcg tablet split tablet TAKE 1 TABLET BY MOUTH EVERYDAY AT NOON 2024 Discontinued(T herapy completed) mirtazapine (Remeron) 15 MG tablet TAKE 1 TABLET BY MOUTH EVERY NIGHT 90 tablet 024 2024 Discontinued(T herapy completed) amLODIPine (Norvasc) 5 MG tabletIndicatio ns:Essential hypertension Take 1 tablet (5 mg) by mouth Once per day. 30 tablet 11 024 2024 Discontinued(T herapy completed) atenolol (Tenormin) 25 MG tablet Take 1 tablet (25 mg) by mouth Once per day. 90 tablet 3 2024 Discontinued(S jhon effects) hydroCHLOROthia zide 12.5 MG tablet Take 1 tablet (12.5 mg) by mouth Once per day. 90 tablet 3 2024 Discontinued(T herapy completed) predniSONE (Deltasone) 20 MG tablet Take 2 tablets every day by oral route for 6 days. 2024 Discontinued(T herapy completed) doxycycline (Vibra-Tabs) 100 MG tablet Take 1 tablet twice a day by oral route for 5 days. 2024 Discontinued(T herapy completed) benzonatate (Tessalon) 100 MG capsule Take 1 capsule every 8 hours by oral route as needed for 5 days. 2024 Discontinued(T herapy completed) rOPINIRole (Requip) 1 MG tablet TAKE 1 TABLET BY MOUTH DAILY AT BEDTIME 90 tablet 2024 Discontinued gabapentin (Neurontin) 300 MG capsule Take 1 capsule (300 mg) by mouth at bedtime. 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 03/26/2025 Moderate late onset Alzheimer's dementia Hydradenitis 12/10/2024 Assessment & Plan (12/10/2024 9:39 AM EDT): Counseling done I advised not to squeeze or manipulate the area I will prescribe for patient doxycycline 100 mg twice daily I advised to come back if he feels there is no improvement Heart murmur 07/31/2024 Mixed stress and urge urinary incontinence 09/11 Assessment & Plan (09/12/2023 3:37 PM EDT): Normal UA and exam 08/2023 DME order for pullups generated Depression, recurrent 09/12/2023 Assessment & Plan (09/12/2023 3:37 PM EDT): Continue with psych prescriber On Zoloft 150mg, Seroquel 100mg Paresthesia and pain of both upper extremities 0 09/12/2023 Assessment & Plan (09/12/2023 3:34 PM EDT): Nerve conduction studies of bilateral upper extremities Nummular dermatitis 05/23/2023 Assessment & Plan (05/23/2023 10:41 AM EST): cerave and triamcinolone Localized osteoarthritis of right knee Assessment & Plan (10/26/2022 11:41 AM EDT): Steroid injection as above in procedure note, tolerated without apparent complication Warning signs/precautions given Tricompartment osteoarthritis of left knee 09/21 Assessment & Plan (09/21/2022 4:56 PM EDT): Kenalog injection done today as detailed in procedure note Restless leg 09/21/2022 Assessment & Plan (09/21/2022 4:53 PM EDT): Per report x 1 moth No sleep study Will trial Ropipnirole 2mg nightly and followup in one month Diverticulitis of intestine 07/14/2022 Gastro-esophageal reflux disease with esophagiti s 07/14/2022 Hiatal hernia 07/14/2022 Gastroesophageal reflux disease with hiatal letty ia 01/18/2022 Chronic neck pain 11/19/2021 Torticollis 11/19/2021 Moderate dementia with other behavioral disturbance, unspecified dementia type ([facility]) 10/22/2021 Assessment & Plan (03/28/2025 12:24 PM EDT): Daughter to initiate [employer] 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 with worsening dementia/low vision Increase Artane to 4mg and keep Aricept 10mg the same dose Increase Gabapentin to 600mg night Assessment & Plan (09/12/2023 3:37 PM EDT): Worsening, now wandering during the day Daughter is hoping to have him move in with her, so that she can keep an eye on him more closely Assessment & Plan (09/21/2022 4:53 PM EDT): Worsening, now wandering during the day Daughter is hoping to have him move in with her, so that she can keep an eye on him more closely Allergic rhinitis 04/09/2015 Erectile dysfunction 04/09/2015 Essential hypertension 04/09/2015 Assessment & Plan (06/20/2024 1:39 PM EST): In light of uncontrolled hypertension I decided to add amlodipine 5mg daily, I advised low Na diet and continue taking losatan 100mg daily + hydrochlorothiazide 12.5mg daily f/u with PCP appt 06/24/24 Assessment & Plan (09/08/2023 6:59 AM EDT): -pt reports at home having mild elevated BP -advised to bring BP log to next apt w PCP to eval if need BP meds adjustment -apt w PCP scheduled already 09/12/2023 Hypercholesterolemia 04/09/2015 Impaired fasting glucose 04/09/2015 Low back pain 04/09/2015 Mild intermittent asthma 04/09/2015 Mixed anxiety and depressive disorder 04/09/2015 Resolved Problems Problem Noted Date Diagnosed Date Resolved Date Category 1 low vision of rig ht eye with category 2 low vision of left eye 03/26/20252024 Abnormal CXR 09/08/2024 03/28/2025 Eye lesion 06/20/2024 10/07/2024 Assessment & Plan (06/20/2024 1:41 PM EST): Hordolum? I will prescribed erythromycin ointment, in light of 4 days no improvement and erythema wtih some swelling around his eye I decide to add doxycycline 100mg BID for 7 days, c/w warm compresses, report back if persistent or worse, ED precautions reviewed Dysuria 09/08/2023 03/28/2025 Assessment & Plan (09/08/2023 7:11 AM EDT): Pt w UTI symptoms w tx empirically for UTI for now -urine disptick protein 20 ,rest neg -chem 02/2023 Cr 1.1 GFR >60 ,crcl is 67 calculated --will use macrobid empirically given hx of PNC and sulfa allergy and avoid quinolones w mx psych meds -UA w reflex cx -will call pt w result, if neg for infection will dc ATB -Ch /gn but low suspicion -macrobid BID x 5 days -currently no concerning symptoms for prostatitis but to consider if no improvement -clotrimazole in glans for itching sensation Weight loss of more than 10% body weight 05/23/2023 03/28/2025 Assessment & Plan (09/12/2023 3:38 PM EDT): Continue Boost prescription He is gaining weight back slowly Assessment & Plan (05/23/2023 10:42 AM EST): Weight in past year from 166 to 144 Start Boost shake daily Increase nutritive value of foods eaten Epigastric pain 04/07/2023 03/28/2025 Assessment & Plan (04/07/2023 9:43 AM EDT): I advise patient to avoid NSAIDs, spicy and acid food, I advise to eat at the same time every day, I advise to elevate the head of the bed and take medications as prescribe Subconjunctival hematoma, right 04/07/2023 05/09/2024 Assessment & Plan (04/07/2023 9:44 AM EDT): Patient reassured Loss of appetite for more than 2 weeks 02/11/2023 02/07/2024 Assessment & Plan (02/11/2023 12:06 PM EDT): Weight has increased 7 pounds in past three months Encourage family and patient to eat nutritive foods, not junk or carbohydrate rich foods Explained indication and qualification for Ensure supplement through [employer] and that patient does not qualify (no unexplained weight loss, No malabsorption, no cancer, no protein-calorie deficiency) Trial 15mg Mirtazapine nightly Main intervention though is to remove sweets from his room/kitchen, encourage eating with others/social time Colitis 12/31/2021 03/28/2025 Visual impairment 11/02/2017 10/07/2024 Encounters Date Type Department Care Team Description 04/12/2025 10:00 AM EDT Office Visit [facility] [address] [place] [phone] Sara Bennett CNP Fall, initial encounter (Primary Dx) 04/12/2025 Travel 04/01/2025 Telephone [facility] [address] [place] [phone] Phuong Cortes MD chart prep 03/26/2025 2:00 PM EDT Office Visit [address] [address] Phuong Cortes MD 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 (HCC) (Primary Dx); 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; Essential hypertension; Gastroesophageal reflux disease with hiatal hernia; Mixed stress and urge urinary incontinence; Mixed anxiety and depressive disorder; Torticollis; Tricompartment osteoarthritis of left knee; Moderate dementia with other behavioral disturbance, unspecified dementia type (CMS/HCC) (HCC) 03/26/2025 Travel 03/25/2025 Telephone [facility] [address] [place] [phone] Phuong Cortes MD Chart Prep 03/20/2025 Refill [facility] [address] [place] [phone] Maria Isabel Cowan FNP 03/12/2025 Refill [facility] [address] [place] [address], [place] [address] Phuong Cortes MD 02/28/2025 Telephone [facility] [address] [facility] [place] [address] Phuong Cortes MD Appointment Request 02/11/2025 Refill [facility] [address] [facility] [place] [address] Phuong Cortes MD from Last 3 Months Immunizations Immunization Administration Dates Next Due Influenza High-dose Quadriva lent Preservative Free 03/31/2021 Influenza injectable quadriv alent IIV4 with preservative 03/19/2018,07/05/2017,05/17/2016,04/09 Influenza injectable quadriv alent preservative free 05/13/2022,04/08/2019 Influenza, High Dose Seasona l, Preservative Free 03/29/2024 Influenza, IIV3, injectable 04/03/2014, 1 Pfizer Covid-19 Vaccine 12+ 03/29/2024 Pneumococcal Conjugate PCV 20 09/12/2023 Pneumococcal Polysaccharide PPSV23 07/05/2017, TD (adult), 2 Lf tetanus tox oid, preservative free, adsorbed 09/12/2023 Tdap 04/26/2012 Zoster, live 04/09/2015 Social History Tobacco Use Types Packs/Day Years Used Date Smoking Tobacco: Never Passive Smoke Exposure: Never Smokeless Tobacco: Never Tobacco Cessation:Counseling Given: Not Answered Alcohol Use Standard Drinks/Week Comments Never 0 [...] not to disclose 2021 10:17 AM EDT Last Filed Vital Signs Vital Sign Reading [...] Mass Index 31.21 04/12/2025 9:32 AM EDT Plan of Treatment Upcoming Encounters Date Type Department Care Team (Late st Contact Info) Description 07/10/2025 11:00 AM EST Office Visit [facility] [address] [place] [address] TarMiranda rojo, OD [address] [place] [address] Health Maintenance Due Date Last Done Comments CT Colonography 1955 FIT DNA/Cologuard 1955 FIT 1955 FOBT 1955 Sigmoidoscopy 1955 Hepatitis C Screening 1973 RSV Patients and Patients Aged 60 years or older (1 - Risk 60-74 years 1-dose series) 2015 Zoster Vaccines (2 of 3) 06/04/2015 04/09/2015 Colonoscopy 05/17/2023 05/17/2022 Colorectal Cancer Screening 05/17/2023 SDOH Screening 09/11/2024 09/12/2023 COVID-19 Vaccine ( season) 2025 03/29/2024, 07/22/2021, 09/15/2020, Additional history exists Influenza Vaccine (#1) 2025 , 05/13/2022, 03/31/2021, Additional history exists Lipid Panel 08/28/2025 08/28/2020 Alcohol/Substance Use Screening 09/08/2025 09/08/2024 Tobacco Screening 03/26/2026 03/26/2025 Depression Screening 03/28/2026 03/28/2025, 03/28/20 DTaP/Tdap/Td Vaccines (3 - Td or Tdap) 09/11/2033 09/12/2023, 04/26/2012 Pneumococcal Vaccine: 50+ Years Completed 09/12/2023, 07/05/2017, 06/13/2015 HIB Vaccines Aged Out No longer eligi ble based on patient's age to complete this topic HPV Vaccines Aged Out No longer eligi ble based on patient's age to complete this topic Hepatitis A Vaccines Aged Out No long er eligible based on patient's age to complete this topic Hepatitis B Vaccines Aged Out No long er eligible based on patient's age to complete this topic IPV Vaccines Aged Out No longer eligi ble based on patient's age to complete this topic Meningococcal B Vaccine Aged Out No l onger eligible based on patient's age to complete this topic Meningococcal Vaccine Aged Out No jim eitan eligible based on patient's age to complete this topic RSV under 20 months Aged Out No longe r eligible based on patient's age to complete this topic Rotavirus Vaccines Aged Out No longer eligible based on patient's age to complete this topic Procedures Procedure Name Priority Date/Time Associated Diagnosis Comments COLONOSCOPY Routine 05/17/2022 2:26 PM EST LIPID PANEL, STANDARD Routine 08/28/2020 4:08 PM EST from Last 3 Months or Most Recently Relevant to Health Maintenance Results * Hm Colonoscopy (05/17/2022 2:26 PM EST) us Historical Provider HEALTH MAINTENANCE Final Result * (ABNORMAL) LIPID PANEL, STANDARD (08/28/2020 4:08 PM EST) Chol/HDLC Ratio 3.6 <5.0 (calc) [facility] Cholesterol, Total 153 <200 mg/dL [facility] HDL Cholesterol 42 > OR = 40 mg/dL [facility] LDL Cholesterol 75 mg/dL (calc) [facility] Comment: Reference range: <100 Desirable range <100 mg/dL for primary prevention; <70 mg/dL for patients with CHD or diabetic patients with > or = 2 CHD risk factors. LDL-C is now calculated using the Jeet calculation, which is a validated novel method providing better accuracy than the Friedewald equation in the estimation of LDL-C. Hiram COSTELLO et al. LATESHA. 2013;310(19): 5793-0870 (http://education.DineroMail/faq/AVI179) Non-HDL Cholesterol 111 <130 mg/dL (calc) [facility] Comment: For patients with diabetes plus 1 major ASCVD risk factor, treating to a non-HDL-C goal of <100 mg/dL (LDL-C of <70 mg/dL) is considered a therapeutic option. Triglycerides 270(H) <150 mg/dL [facility] Comment: If a non-fasting specimen was collected, consider repeat triglyceride testing on a fasting specimen if clinically indicated. Shruthi et al. J. of Clin. Lipidol. 2015;9:129-169. 08/28/2020 4:08 PM EST us Phuong Cortes MD LAB BLOOD ORDERABLES Final Res ult [facility] [address] from Last 3 Months or Most Recently Relevant to Health Maintenance Insurance [facility] [employer] (O D-SNP) SUKH SAUNDERS [id number] Care Teams Cook Chill Technician Relationship Specialty Start Date End Date Phuong Cortes MD [address] [place] [address] PCP - General Family Medicine 02/04/21 [facility] 09/11/24
--- OUTSIDE RECORDS SUMMARY | 2025-04-12 10:22 | XMS_ITS | Encounter Summary ---
Author Organization [employer] Address [address] [address] [place] [address] Care Team Providers Care Laboratory Tech Name Role Phone Phuong Cortes MD Primary Care Provider [phone] Reason for Visit * Reason Comments Med Refill Encounter Details Date Type Department Care Team (Late st Contact Info) Description 09/27/[address] [facility] [address] [place] [address] Phuong Cortes MD [address] [place] [address] Social History Tobacco Use Types Packs/Day Years [...] your housing situation today? I have bennie salo 04/11/[address] you li [...] AM EDT documented as of this encounter Plan of Treatment Upcoming Encounters Date Type Department Care Team (Late st Contact Info) Description 07/10/2025 11:00 AM EST Office Visit [facility] [address] [place] [address] Miranda Sherwood, OD [address] [place] [address] documented as of this encounter Visit Diagnoses Not on filedocumented in this encounter Additional Health Concerns Assessment Noted Time PHQ-9 Depression Total Score: 9 09/12/19 24 10:36 AM EDT documented as of this encounter Care Teams Laboratory Tech Relationship Specialty Start Date End Date Phuong Cortes MD [address] [place] [phone] PCP - General Family Medicine 02/04/21 [facility] 04/08/21 10/17/24 [facility] 09/11/24 documented as of this encounter
--- OUTSIDE RECORDS SUMMARY | 2025-04-12 10:22 | XMS_ITS | Patient Health Record ---
Author Organization [facility] Address [address] [place] [id number] Care Team Providers Care Sheet Writer Name Role Phone Erlin Glover Unavailable [phone] Reason For Referral No Information Plan Of Treatment No Information
--- OUTSIDE RECORDS SUMMARY | 2025-04-12 10:22 | XMS_ITS | Encounter Summary ---
Author Organization [employer] Address [address] [place] [address] Care Team Providers Care Teaching Assistant Name Role Phone Phuong Cortes MD Primary Care Provider [phone] Reason for Visit * Reason Onset Date Comments Med Refill 12/09/2024 Encounter Details Date Type Department Care Team (Late st Contact Info) Description 12/09/[address] [facility] [address] [place], [place] [phone] Barney Farr MD [address] [place] [address] Social History Tobacco Use Types Packs/Day Years [...] Description 07/10/2025 11:00 AM EST Office Visit [facility] [address] [place] [address] Miranda Sherwood, OD [address] [place] [address] documented as of this encounter Visit Diagnoses Not on filedocumented in this encounter Additional Health Concerns Assessment Noted Time PHQ-9 Depression Total Score: 9 09/12/19 24 10:36 AM EDT documented as of this encounter Care Teams Teaching Assistant Relationship Specialty Start Date End Date Phuong Cortes MD [address] [place] [address] PCP - General Family Medicine 02/04/21 [employer] [facility] 09/11/24 documented as of this encounter
--- OUTSIDE RECORDS SUMMARY | 2025-04-12 10:22 | XMS_ITS | Encounter Summary ---
Author Organization [employer] Address [address] [place] [address] Care Team Providers Care Gsa Coordinator Name Role Phone Phuong Cortes MD Primary Care Provider Reason for Visit * Reason Onset Date Comments Med Refill 12/09/2024 Encounter Details Date Type Department Care Team (Late st Contact Info) Description 12/09/2024 Refill [facility] [address] [place], [place] [phone] Phuong Cortes MD [address] [place], [place] [phone] Social History Tobacco Use Types Packs/Day Years [...] Description 07/10/2025 11:00 AM EST Office Visit [facility] [address] [place] [address] Miranda Sherwood, OD [address] [place] [address] documented as of this encounter Visit Diagnoses Not on filedocumented in this encounter Additional Health Concerns Assessment Noted Time PHQ-9 Depression Total Score: 9 09/12/19 24 10:36 AM EDT documented as of this encounter Care Teams Gsa Coordinator Relationship Specialty Start Date End Date Phuong Cortes MD [address] [place] [address] PCP - General Family Medicine 02/04/21 [facility] 09/11/24 documented as of this encounter
--- OUTSIDE RECORDS SUMMARY | 2025-04-12 10:23 | XMS_ITS | Encounter Summary ---
Author Organization [employer] Address [address] [place] [address] Care Team Providers Care Events Intern Name Role Phone Phuong Cortes MD Primary Care Provider [phone] Encounter Details Date Type Department Care Team ([facility] st Contact Info) Description 12/15/2023 Orders Only [facility] [address] [place], [place] [phone] Barney Farr MD [address] [place], [place] [phone] Social History Tobacco Use Types Packs/Day Years [...] enough money to get more: Never True 10/ Transportation Answer Date Recorded In the past [...] Description 07/10/2025 11:00 AM EST Office Visit [facility] [address] [place] [address] Miranda Sherwood, OD [address] [place] [address] documented as of this encounter Visit Diagnoses Not on filedocumented in this encounter Additional Health Concerns Assessment Noted Time PHQ-9 Depression Total Score: 9 09/12/19 24 10:36 AM EDT documented as of this encounter Care Teams Events Intern Relationship Specialty Start Date End Date Phuong Cortes MD [address] [place] [id number] PCP - General Family Medicine 02/04/21 [facility] 04/08/21 10/17/24 [facility] 09/11/24 documented as of this encounter
--- OUTSIDE RECORDS SUMMARY | 2025-04-12 10:23 | XMS_ITS | Encounter Summary ---
Author Organization [employer] Address [address] [facility] [address] 7t [place] [address] Care Team Providers Care Ultrasound Sonographer Name Role Phone Phuong Cortes MD Primary Care Provider [phone] Encounter Details Date Type Department Care Team (Late st Contact Info) Description 08/02/2024 Orders Only [facility] [address] [place], [place] [phone] Phuong Cortes MD [address] [place], [place] [phone] Social History Tobacco Use Types Packs/Day Years [...] Upcoming Encounters Date Type Department Care Team ([facility] st Contact Info) Description 07/10/2025 11:00 AM EST Office Visit [facility] OPTOMETRY [address] [place] [address] Miranda Sherwood, OD [address] [place] [address] documented as of this encounter Visit Diagnoses Not on filedocumented in this encounter Additional Health Concerns Assessment Noted Time PHQ-9 Depression Total Score: 9 09/12/19 24 10:36 AM EDT documented as of this encounter Care Teams Ultrasound Sonographer Relationship Specialty Start Date End Date Phuong Cortes MD [address] [place] [address] PCP - General Family Medicine 02/04/21 [facility] 04/08/21 10/17/24 [facility] 09/11/24 documented as of this encounter
--- OUTSIDE RECORDS SUMMARY | 2025-04-12 10:23 | XMS_ITS | Encounter Summary ---
Author Organization [employer] Address [address] [facility] 7t [place] [address] Care Team Providers Care Gasoline Pump Mechanic Name Role Phone Phuong Cortes MD Primary Care Provider [phone] Reason for Visit * Reason Onset Date Comments Appointment Request 10/19/2022 Encounter Details Date Type Department Care Team ([facility] st Contact Info) Description 10/19/2022 Telephone [facility] MED[facility]INE [address] [place], [place] [phone] Phuong Cortes MD [address] [place], [place] [phone] Appointment Request Social History Tobacco Use Types Packs/Day Years Used Date Smoking Tobacco: Never Smokeless Tobacco: Never Alcohol Use Standard Drinks/Week Comments Never 0 (1 standard drink = 0.6 oz pur e alcohol) Depression Answer Date Recorded Patient Health Questionnaire-2 Score 0 09/21/2022 Sex and Gender Information Value Date Recorded Sex Assigned at Male 04/25/2022 10:17 AM EDT Legal Sex Male 10:17 AM EDT Gender Identity Male 04/25/2022 10:17 AM EDT Sexual Orientation Choose not to disclose 2021 10:17 AM EDT COVID-19 Exposure Response Date Recorded In the last 10 days, have yo u been in contact with someone who was confirmed or suspected to have Coronavirus/COVID-19? No / Unsure 09/21/2022 3:55 PM EDT documented as of this encounter Miscellaneous Notes * Telephone Encounter - Zohra Dias - 10/19/2022 11:29 AM EDT Tc from pt daughter requesting to r/s appt for 10/19/2022 for F/u. Please contact daughter at [phone] documented in this encounter Plan of Treatment Upcoming Encounters Date Type Department Care Team (Late st Contact Info) Description 07/10/2025 11:00 AM EST Office Visit [facility] OPTOMETRY [address] [place], [place] [phone] Miranda Sherwood, OD [address] [place] [address] documented as of this encounter Visit Diagnoses Not on filedocumented in this encounter Care Teams Gasoline Pump Mechanic Relationship Specialty Start Date End Date Phuong Cortes MD [address] [place] [address] PCP - General Family Medicine 02/04/21 [facility] 04/08/21 10/17/24 [facility] 09/11/24 documented as of this encounter
--- OUTSIDE RECORDS SUMMARY | 2025-04-12 10:23 | XMS_ITS | Encounter Summary ---
Author Organization [employer] Address [address] [facility] [address] [place] [address] Care Team Providers Care Admission Specialist Name Role Phone Phuong Cortes MD Primary Care Provider [phone] Encounter Details Date Type Department Care Team (Latest Contact Info) Description 04/12/2025 Travel Social History Tobacco Use Types Packs/Day Years [...] 11:00 AM EST Office Visit [facility] OPTOMETRY [address] [place] [address] Miranda Sherwood, OD [address] [place] [address] documented as of this encounter Visit Diagnoses Not on filedocumented in this encounter Additional Health Concerns Assessment Noted Time PHQ-9 Depression Total Score: 5 03/28/20 25 12:20 PM EDT documented as of this encounter Care Teams Admission Specialist Relationship Specialty Start Date End Date Phuong Cortes MD [address] [place] [address] PCP - General Family Medicine 02/04/21 [facility] 09/11/24 documented as of this encounter
--- OUTSIDE RECORDS SUMMARY | 2025-04-12 10:23 | XMS_ITS | Encounter Summary ---
Author Organization [employer] Address [address] [facility] 7t [place] [address] Care Team Providers Care Camera Person Name Role Phone Phuong Cortes MD Primary Care Provider [phone] Reason for Visit * Reason Onset Date Comments Durable Medical Equipment 10/17/2022 Encounter Details Date Type Department Care Team (Late st Contact Info) Description 10/17/2022 Telephone [facility] MEDICINE [address] [place], [place] [phone] Phuong Cortes MD [address] [place], [place] [phone] Durable Medical Equipment Social History Tobacco Use Types Packs/Day Years [...] encounter Miscellaneous Notes * Telephone Encounter - Marnie Amin - 10/20/2022 3:25 PM EDT Script for adult diapers generated for providers signature * Telephone Encounter - Zohra Dias - 10/17/2022 12:21 PM EDT Tc from pt daughter requesting a new script for the Adult Diapers Size Large. Daughter states that supplier is requesting a new script. If any questions please contact Daughter at [phone] documented in this encounter Plan of Treatment Upcoming Encounters Date Type Department Care Team (Late st Contact Info) Description 07/10/2025 11:00 AM EST Office Visit [facility] OPTOMETRY [address] [place], [place] [phone] Miranda Sherwood, OD [address] [place] [address] documented as of this encounter Visit Diagnoses Not on filedocumented in this encounter Care Teams Camera Person Relationship Specialty Start Date End Date Phuong Cortes MD [address] [place] [address] PCP - General Family Medicine 02/04/21 [facility] 04/08/21 10/17/24 [facility] 09/11/24 documented as of this encounter
--- OUTSIDE RECORDS SUMMARY | 2025-04-12 10:23 | XMS_ITS | Encounter Summary ---
Author Organization [employer] Address [address] [facility] 7t [place] [address] Care Team Providers Care Lead Mechanic Name Role Phone Phuong Cortes MD Primary Care Provider [phone] Reason for Visit * Reason Comments Med Refill Encounter Details Date Type Department Care Team (Late Contact Info) Description 01/12/[address] [facility] MEDICINE [address] [place], [place] [phone] Yokasta Ledbetter MD [address] [place], [place] [phone] Social History Tobacco Use Types Packs/Day Years [...] Encounters Date Type Department Care Team (Late Contact Info) Description 07/10/2025 11:00 AM EST Office Visit [facility] OPTOMETRY [address] [place], [place] [phone] Miranda Sherwood, OD [address] [place], [place] [phone] documented as of this encounter Visit Diagnoses Not on filedocumented in this encounter Care Teams Lead Mechanic Relationship Specialty Start Date End Date Phuong Cortes MD [address] [place] [address] PCP - General Family Medicine 02/04/21 [facility] 04/08/21 10/17/24 [facility] 09/11/24 documented as of this encounter
--- OUTSIDE RECORDS SUMMARY | 2025-04-12 10:23 | XMS_ITS | Encounter Summary ---
Author Organization [employer] Address [address] [facility] 7t [place] [address] Care Team Providers Care Office Helper Name Role Phone Phuong Cortes MD Primary Care Provider [phone] Reason for Visit * Reason Onset Date Comments Nurse Triage 08/19/2024 Encounter Details Date Type Department Care Team (Late st Contact Info) Description 08/19/2024 Telephone [facility] MEDICINE 230 [place], [place] [phone] Phuong Cortes MD [address] [place], [place] [phone] Nurse Triage Social History Tobacco Use Types Packs/Day Years [...] encounter Miscellaneous Notes * Telephone Encounter - Ainsley Nick RN - 08/19/2024 9:38 AM EST Triage call with [facility] assistant statistician [place] [id number]. Pt reports cough for a week now. Neg for fever but, sore throat present as well as chest congestion. Pt describes a snoring sound with expiration as well as some wheezing. Pt reports some difficulty breathing when cough is persistent. Pt reports drinking adequate liquids, home care advised using warm steamy shower to access moisture, cough drops, 2 tsp honey. Pt is advised to come to [facility] today to be seen by provider and Pt agrees with disposition. Insurance is verified as active. Protocol Used: Cough (Adult) Protocol-Based Disposition: See in Office or Video Visit Today or Tomorrow Video visit not offered Positive Triage Questions: * Continuous (nonstop) coughing interferes with work or school and no improvement using cough treatment per Care Advice * Patient wants to be seen * All higher-acuity triage questions were negative Care Advice Discussed: * Reassurance and Education - Cough * Cough Medicines * Coughing Spells * Prevent Dehydration * Humidifier * Reasons To Call Back - Difficulty breathing - Cough lasts more than 3 weeks - Fever lasts more than 3 days - You become worse * Telephone Encounter - David Gao - 08/19/2024 8:41 AM EST Symptom: Cough Outcome: Talk to a nurse or provider within 15 minutes Reason: Any trouble breathing through the mouth The caller accepted this outcome. Contact pt at [phone](Georgian) documented in this encounter Plan of Treatment Upcoming Encounters Date Type Department Care Team (Late st Contact Info) Description 07/10/2025 11:00 AM EST Office Visit [facility] OPTOMETRY [address] [place] [address] Miranda Sherwood, OD [address] [place] [address] documented as of this encounter Visit Diagnoses Not on filedocumented in this encounter Additional Health Concerns Assessment Noted Time PHQ-9 Depression Total Score: 9 09/12/19 24 10:36 AM EDT documented as of this encounter Care Teams Office Helper Relationship Specialty Start Date End Date Phuong Cortes MD [address] [place] [address] PCP - General Family Medicine 02/04/21 [facility] 04/08/21 10/17/24 [facility] 09/11/24 documented as of this encounter
--- OUTSIDE RECORDS SUMMARY | 2025-04-12 10:23 | XMS_ITS | Encounter Summary ---
Author Organization [employer] Address [address] [facility] [address] [place] [address] Care Team Providers Care Park Aide Name Role Phone Phuong Cortes MD Primary Care Provider [phone] Encounter Details Date Type Department Care Team (Late st Contact Info) Description 11/02/2023 Orders Only [facility] MEDICINE [address] [place] [address] Provider, MD Humberto Social History Tobacco Use Types Packs/Day Years [...] Description 07/10/2025 11:00 AM EST Office Visit [facility] OPTOMETRY [address] [place], [place] [phone] TarkaMiranda, OD [address] [place] [address] documented as of this encounter Procedures Procedure Name Priority Date/Time Associated Diagnosis Comments URINALYSIS WITH REFLEX MICROSCOPIC Routine 12/15/2023 12:20 AM EDT CBC WITH AUTO DIFFERENTIAL Routine 12/14/2023 8:33 PM EDT B TYPE NATRIURETIC PEPTIDE (BNP) Routine 12/14/2023 8:33 PM EDT MAGNESIUM Routine 12/14/2023 8:33 PM EDT COMPREHENSIVE METABOLIC PANEL Routine 12/14/2023 8:33 PM EDT HM COLONOSCOPY Routine 05/17/2022 2:26 PM EST documented in this encounter Results * Urinalysis w/reflex microscopic (12/15/2023 12:20 AM EDT) Color Urine Yellow [facility] Appearance Urine Clear [facility] PH 6.0 5.0 - 9.0 [facility] Glucose Urine UA Negative Negative mg/dL [facility] Urine Blood Negative Negative [facility] Specific [place] - Urine 1.025 1.005 - 1.025 [facility] Urine Protein Trace Neg-Trace mg/dL [facility] Urine Ketones Negative Negative mg/dL [facility] Nitrite Urine Negative Negative [facility] Leukocyte Esterase Urine Negative Negative [facility] 12/15/2023 12:2 0 AM EDT 12/15/2023 12:22 AM EDT Narrative [facility] - 12/15/2023 12:28 AM EDT Urine, Clean Catch us Generic External Data Provider LAB URINE ORDERAB LES Final Result Performing Organization Address [facility] Co de Phone Number [facility] [address] [place] [phone] * B Type Natriuretic Peptide (BNP) (12/14/2023 8:33 PM EDT) Pathologist [facility] B Type Natriuretic Peptide 13 <100 pg/mL [facility] Comment:For those patients w ho are being treated with Natrecor(nesiritide, recombinant BNP), BNP testing should beperformed at least two hours post treatment in order toensure that only endogenous levels of BNP are detected. 12/14/2023 8:33 PM EDT 12/14/2023 10:53 PM EDT us Generic External Data Provider LAB BLOOD ORDERAB LES Final Result Performing Organization Address [facility]/ZIP Co de Phone Number [facility] [address] [place] [address] [phone] * Magnesium (12/14/2023 8:33 PM EDT) Pathologist [facility] Magnesium 2.3 1.6 - 2.6 mg/dL [facility] Comment:Lipemic Specimen 12/14/2023 8:33 PM EDT 12/14/2023 8:35 PM EDT us Generic External Data Provider LAB BLOOD ORDERAB LES Final Result [facility] [address] [place] [address] [phone] * (ABNORMAL) Comprehensive Metabolic Panel (12/14/2023 8:33 PM EDT) Sodium 141 135 - 145 mmol/L [facility] Potassium 3.8 3.3 - 5.1 mmol/L [facility] Comment:Slight Hemolysis Chloride 107 96 - 108 mmol/L [facility] Carbon Dioxide 25 22 - 29 mmol/L [facility] Anion Gap 13 12 - 20 [facility] Urea Nitrogen (BUN) 27(H) 9 - 16 mg/dL [facility] Creatinine, Serum 1.56(H) 0.5 - 1.4 mg/dL [facility] Creatinine Clr Calc Pharmacy 41.6 [facility] Comment:eGFR (calculated fro m the MDRD study equation) and eCrCl(calculated from the Cockcroft-Gault equation) are based ondifferent parameters and may not yield comparable results.If eCrCl result is absurd, please check patient'sheight/weight. Estimated Glomerular Filt Rate 44 [facility] Comment:NOTE: For -Am erican individuals, multiply the result by 1.210.Chronic Kidney Disease: Estimated GFR < 60 mL/min/1.36m5Bgcbiv Kidney Disease: Estimated GFR < 15 mL/min/1.73m2 Glucose 135(H) 60 - 115 mg/dL [facility] Calcium 9.3 8.4 - 10.2 mg/dL [facility] Bilirubin, Total 0.3 0.0 - 1.0 mg/dL [facility] Aspartate Amino Transferase 31 5 - 37 U/L [facility] Comment:Slight Hemolysis Alanine Aminotransferase 26 0 - 40 U/L [facility] Total Protein 8.8(H) 6.5 - 8.0 g/dL [facility] Albumin Level 4.3 3.5 - 5.0 g/dL [facility] Alkaline Phosphatase 112 39 - 117 U/L [facility] 12/14/2023 8:33 PM EDT 12/14/2023 8:35 PM EDT us Generic External Data Provider LAB BLOOD ORDERAB LES Final Result [facility] [address] [place], [place] [phone] * (ABNORMAL) CBC auto differential (12/14/2023 8:33 PM EDT) White Blood Count 6.8 4.8 - 10.8 X10*3/uL [facility] Red Blood Count 4.15(L) 4.60 - 5.80 X10*6/uL [facility] Hemoglobin 12.9(L) 14.0 - 18.0 g/dl [facility] Hematocrit 36.6(L) 42.0 - 52.0 % [facility] Mean Corpuscular Volume 88.2 80.0 - 98.0 fL [facility] Mean Corpuscular Hemoglobin 31.1 27.0 - 33.0 pg [facility] Mean Corpuscular HGB Conc 35.2 31.0 - 36.0 g/dl [facility] Red Cell Distribution Width 12.9 11.0 - 16.0 % [facility] Platelet Count 223 160 - 400 X10*3/uL [facility] Mean Platelet Volume 10.2 9.4 - 12.4 fL [facility] Neutrophils Percent Auto 44.6(L) 45 - 73 % [facility] Imm Gran Pct Auto 0.1 0.0 - 0.4 % [facility] Lymphocytes Percent Auto 40.0 20 - 40 % [facility] Monocytes Percent Auto 10.3 2 - 11 % [facility] Eosinophils Percent Auto 4.4(H) 0 - 4 % [facility] Basophils Percent Auto 0.6 0 - 2 % [facility] NRBC Pct Auto 0.0 0.0 - 0.2 /100WBC [facility] Neutrophils Absolute Auto 3.0 2.0 - 8.3 x10*3/uL [facility] Imm Gran Abs Auto 0.01 0.00 - 0.03 X10*3/uL [facility] Lymphocytes Absolute Auto 2.7 1.2 - 4.9 X10*3/uL [facility] Monocytes Absolute Auto 0.7 0.1 - 1.2 X10*3/uL [facility] Eosinophils Absolute Auto 0.3 0.0 - 0.4 X10*3/uL [facility] Basophils Absolute Auto 0.0 0.0 - 0.2 X10*3/uL [facility] NRBC Abs Auto 0.000 0.0 - 0.012 X10*3/uL [facility] 12/14/2023 8:33 PM EDT 12/14/2023 8:35 PM EDT Generic External Data Provider LAB BLOOD ORDERAB LES Final Result Performing Organization Address City/State/[facility] Co de Phone Number [facility] [address] [place] [address] [phone] * Hm Colonoscopy (05/17/2022 2:26 PM EST) Historical Provider HEALTH MAINTENANCE Final Result documented in this encounter Visit Diagnoses Not on filedocumented in this encounter Additional Health Concerns Assessment Noted Time PHQ-9 Depression Total Score: 9 09/12/19 24 10:36 AM EDT documented as of this encounter Care Teams Park Aide Relationship Specialty Start Date End Date Phuong Cortes MD [address] [place] [address] PCP - General Family Medicine 02/04/[facility] 04/08/21 10/17/24 [facility] 09/11/24 documented as of this encounter
--- OUTSIDE RECORDS SUMMARY | 2025-04-12 10:23 | XMS_ITS | Encounter Summary ---
Author Organization [employer] Address [address] [facility] 7t [place] [address] Care Team Providers Care Internet Marketing Manager Name Role Phone Phuong Cortes MD Primary Care Provider [phone] Reason for Visit * Reason Comments Med Refill Encounter Details Date Type Department Care Team (Late st Contact Info) Description 04/12/2023 Refill [facility] [address] [place], [place] [phone] Name, MD Gabriel [address] [place], [place] [phone] Social History Tobacco Use Types Packs/Day Years Used Date Smoking Tobacco: Never Passive Smoke Exposure: Never Smokeless Tobacco: Never Alcohol Use Standard Drinks/Week Comments Never 0 (1 standard drink = 0.6 oz pur e alcohol) Housing Stability Answer Date Recorded What is [...] from getting things needed for daily living? No 04/11/2023 Utilities Answer Date Recorded In the past [...] EST Office Visit [facility] OPTOMETRY [address] [place], [place] [phone] Miranda Sherwood, OD [address] [place] [address] documented as of this encounter Visit Diagnoses Not on filedocumented in this encounter Care Teams Internet Marketing Manager Relationship Specialty Start Date End Date Phuong Cortes MD [address] [place] [address] PCP - General Family Medicine 02/04/21 [facility] Care 04/08/21 10/17/24 [facility] 09/11/24 documented as of this encounter
--- OUTSIDE RECORDS SUMMARY | 2025-04-12 10:23 | XMS_ITS | Data Portability ---
Author Organization [facility] Address [address] [place] [id number] Care Team Providers Care Alum Plant Supervisor Name Role Phone Unavailable Referring Provider HIM CCA OTHER Assessment Encounter Date Assessment Date Assessment LastModified by Organization Details LastModified Time 01/06/2022 01/06/2022 I have reviewed and agree with the Assessment and Plan as documented by the Heel Pricker. I provided real -time medical direction via phone for this encounter, and was available for additional phone based assistance as needed. Patient/ family given the opportunity to ask questions. [email or web address] Not available 01/06/2022 15:25:06 01/08/2022 01/08/2022 I have reviewed and agree with the Assessment and Plan as documented by the Heel Pricker. I provided real -time medical direction via phone for this encounter, and was available for additional phone based assistance as needed. Patient/ familygiven the opportunity to ask questions. [email or web address] Not available 01/08/2022 12:04:45 Plan of Treatment Reminders Order Date Submit Date Provider Last Modified By Organization Details Last Modified Time Details Appointments None recorded. Lab rapid SARS CoV 2 Ag, QL [place], respiratory specimen 2024 025 [email or web address] [facility], [address] [place] [address], [id number] 5 17:18:01 rapid flu (A+B) 2024 [address] [email or web address] [address], [address] 17:18:00 cmp, whole blood + pietro 2021 022 [email or web address] [address], [address] 12:03:59 cmp, whole blood + pietro 2021 022 [email or web address] 0 [facility], [address] [place] [address], [phone] 17:09:53 Referral None recorded. Procedures IV insertion (PROC) 2021 022 [email or web address] 0 Not available 15:24:30 Surgeries None recorded. Imaging electrocard iogram 2024 025 [facility], [address] [place] [address], [id number] 5 17:18:02 Medication Orders ipratropium 0.5 mg-albutero l 3 mg (2.5 mg base)/3 mL nebulizatio n soln 2024 025 [facility], [address] [place] [address], [id number], 17:17:58 prednisone 20 mg tablet 2024 025 [facility], [address] [place] [address], [id number], 5 17:17:58 benzonatate 100 mg capsule 2024 025 [facility], [address] [place] [address], [id number], 5 17:17:58 doxycycline hyclate 100 mg tablet 2024 025 [facility], [address] [place] [address], [id number], 5 17:17:58 prednisone 20 mg tablet 2024 025 [facility], [address] [place], [id number], 17:17:58 doxycycline hyclate 100 mg tablet 2024 025 [email or web address] [address] [place], [id number], 5 17:17:58 benzonatate 100 mg capsule 2024 025 [facility], [address] [place], [id number], 5 17:17:58 Tylenol Extra Strength 500 mg tablet 2021 022 [email or web address] 0 [facility], [address] [place] [address], [id number], 2 12:03:59 sodium chloride 0.9 % intravenous solution 2021 022 [email or web address] 0 Not available 15:24:30 ondansetron HCl (PF) 4 mg/2 mL injection syringe 2021 022 [email or web address] 0 Not available 15:24:30 metronidazo le 500 mg tablet 2021 022 [facility], [address] [place] [address], [id number], 2 17:11:21 levofloxaci n 500 mg tablet 2021 022 [facility], [address] [place] [address], [id number], 2 17:11:21 ondansetron 4 mg disintegrat ing tablet 2021 022 [facility], [address] [place] [address], [id number], 2 17:11:22 levofloxaci n 500 mg tablet 2021 022 [email or web address] 0 [facility], [address] [place] [address], [id number], 17:02:44 loperamide 2 mg capsule 2021 022 [email or web address] 0 [facility], [address] [place] [address], [id number], 17:02:44 Patient TargetsNo targets recorded. Patient Instructions Encounter Date Encounter Id Patient Instructions Last Modified By Organization Details Last Modified Time 01/08/2022 [id number] infusion, normal saline* [email or web address] Not available 01/08/2022 12:03:59 orthostatic vitals* [email or web address] Not available 01/08/2022 12:03:59 Reason for Referral None Reported. Results Created Date Observation Date Name Description Value Unit Range Abnormal Flag Note LastModifiedBy Organization Detail LastModifiedTime 01/07/20 22 01/06/2022 cmp, whole blood + picco lo BUN 20 Not Available [facility] [address], [address] 01/06/2022 17:07:53 01/07/20 22 01/06/2022 cmp, whole blood + picco lo Ca 10.2 Not Available [facility] [address], [address] 01/06/2022 17:07:53 01/07/20 22 01/06/2022 cmp, whole blood + picco lo CI- normal Not Available [facility] [address], [address] 01/06/2022 17:07:53 01/07/20 22 01/06/2022 cmp, whole blood + picco lo CRE 1.2 Not Available [facility] [address], [address] 01/06/2022 17:07:53 01/07/20 22 01/06/2022 cmp, whole blood + picco lo GLU 115 Not Available [facility] [address], [address] 01/06/2022 17:07:53 01/07/20 22 01/06/2022 cmp, whole blood + picco lo K+ 4.7 Not Available [facility] [address], [address] 01/06/2022 17:07:53 01/07/20 22 01/06/2022 cmp, whole blood + picco lo Na+ 145 Not Available [facility] [address], [address] 01/06/2022 17:07:53 01/07/20 22 01/06/2022 cmp, whole blood + picco lo tCO2 29 Not Available [facility] [address], [address] 01/06/2022 17:07:53 01/07/20 22 01/06/2022 cmp, whole blood + picco lo TP 9 Not Available [facility] [address], [address] 01/06/2022 17:07:53 01/09/20 22 01/08/2022 cmp, whole blood + picco lo BUN 13 Not Available [facility] [address], [address] 01/08/2022 11:40:17 01/09/20 22 01/08/2022 cmp, whole blood + picco lo Ca 9.2 Not Available [facility] [address], [address] 01/08/2022 11:40:17 01/09/20 22 01/08/2022 cmp, whole blood + picco lo CI- normal Not Available [facility] [address], [address] 01/08/2022 11:40:17 01/09/20 22 01/08/2022 cmp, whole blood + picco lo CRE 1 Not Available [facility] [address], [address] 01/08/2022 11:40:17 01/09/20 22 01/08/2022 cmp, whole blood + picco lo GLU 104 Not Available [facility] [address], [address] 01/08/2022 11:40:17 01/09/20 22 01/08/2022 cmp, whole blood + picco lo K+ 4.2 Not Available [facility] [address], [address] 01/08/2022 11:40:17 01/09/20 22 01/08/2022 cmp, whole blood + picco lo Na+ 144 Not Available [facility] [address], [address] 01/08/2022 11:40:17 01/09/20 22 01/08/2022 cmp, whole blood + picco lo tCO2 27 Not Available [facility] [address], [address] 01/08/2022 11:40:17 01/09/20 22 01/08/2022 cmp, whole blood + picco lo TP 8.2 Not Available [facility] [address], [address] 01/08/2022 11:40:17 09/01/19 25 08/31/2024 rapid flu (A+B) Flu negati ve Not Available [facility] ed [address] [place] [address], [address] [place] [address] 08/31/2024 16:21:57 09/01/19 25 08/31/2024 rapid SARS CoV 2 Ag, QL IA, respi rator y speci men rapid SARS CoV 2 Ag, QL IA, respiratory specimen negati ve Not Available [facility] ed [address] [place] [address], [address] 08/31/2024 16:21:51 09/01/19 25 08/31/2024 elect pablo diogr am No observ ation record ed. [email or web address] [address], [address] 08/31/2024 17:18:01 Result Notes None recorded. Medical Equipment None Reported. Allergies Allergen ID Allergen Name Allergen Category Reaction Reaction Severity Criticality Documentation Date Start Date Code Code System Note Provider Name and Address Organization Details Recorded Time 690 Product containin g penicilli n (product) medicatio n Not available Not available Not available 01/06/2022 99663 8001 SNOMED Not Available [facility] - [facility] 4 03:46:17 691 Substance with sulfonami de structure and antibacte rial mechanism of action (substanc e) medicatio n Not available Not available Not available 01/06/2022 47963 8003 SNOMED Josselin Patel MD [address] [place] [address],[address], [place], [address], [facility] [employer] [facility] 2 15:03:26 692 contact metal agent environme nt Not available Not available Not available 01/06/2022 Josselin Patel MD [address], [place], [address], [employer] 2 15:03:36 693 morphine medicatio n Not available Not available Not available 01/06/2022 7052 RxNorm Josselin Patel MD [address], [place], [address], [employer] 2 15:24:39 Medications Name Sig Start Date Stop Date Status Note LastModified by Organization Details LastModified Time amoxicillin 500 mg capsule TAKE 1 CAPSULE BY MOUTH EVERY 6 HOURS UNTIL FINISHED active Not Available Not Available No t Available atorvastatin 20 mg tablet TAKE 1 TABLET BY MOUTH EVERY MORNING active Not Available Not Available No t Available ropinirole 1 mg tablet TAKE 1 TABLET BY MOUTH AT BEDTIME active Not Available Not Available No t Available donepezil 5 mg tablet TAKE 1 TABLET BY MOUTH EVERY EVENING active Not Available Not Available No t Available albuterol sulfate 2.5 mg/3 mL (0.083 %) solution for nebulization INHALE 1 AMPULE USING A NEBULIZER EVERY 4 HOURS NEEDED FOR WHEEZING OR SHORTNESS OF BREATH active Not Available Not Available No t [...] Not Available Not Available N ot Available prednisone 20 mg tablet TAKE 2 TABLETS BY MOUTH EVERY DAY FOR 6 DAYS active Not Available Not Available N ot Available clonazepam 0.5 mg tablet TAKE 1/2 TABLET BY MOUTH ONCE DAILY NEEDED FOR ANXIETY active Not Available Not Available No t Available sertraline 100 mg tablet TAKE 1 TABLET BY MOUTH ONCE DAILY WITH 50 MG TABLET active Not Available Not Available No t [...] Not Available Not Available No t Available amlodipine 5 mg tablet TAKE 1 TABLET BY MOUTH EVERY DAY active Not Available Not Available No t Available omeprazole 40 mg capsule,delay ed release TAKE 1 CAPSULE BY MOUTH TWICE DAILY. DO NOT BREAK, CRUSH, DISSOLVE OR CHEW. active Not Available Not Available No t Available aspirin 81 mg tablet,delaye d release TAKE 1 TABLET BY MOUTH AT BEDTIME active Not Available Not Available No t Available quetiapine 100 mg tablet TAKE 1 TABLET BY MOUTH AT BEDTIME active Not Available Not Available No t Available acetaminophen 500 mg tablet TAKE 1 TABLET BY [...] MOUTH EVERY MORNING 30 MINUTES AFTER BREAKFAST. active Not Available Not Available N ot Available amlodipine 10 mg tablet TAKE 1 TABLET BY MOUTH EVERY DAY IN THE MORNING active Not Available Not Available No t Available benzonatate 100 mg capsule TAKE 1 CAPSULE BY MOUTH EVERY 8 HOURS NEEDED FOR 5 DAYS active Not Available Not Available No t Available erythromycin 5 mg/gram (0.5 %) eye ointment APPLY 1/2 INCH (1 CM) RIBBON TO INTO THE AFFECTED EYE(S) FOUR TIMES DAILY FOR 10 DAYS active Not Available Not Available No t Available gabapentin 300 mg capsule TAKE 1 CAPSULE BY MOUTH EVERY DAY AT BEDTIME active Not Available Not Available N ot Available omeprazole 20 mg capsule,delay ed release TAKE 1 CAPSULE BY MOUTH EVERY DAY active Not Available Not Available No t Available diclofenac sodium 75 mg tablet,delaye d release TAKE 1 TABLET BY MOUTH TWICE A DAY AFTER MEALS 30 active Not Available Not Available No t Available zolpidem 5 mg tablet TAKE 1 TABLET BY MOUTH AT BEDTIME NEEDED for SLEEP active Not Available Not Available No t Available mirtazapine 15 mg tablet TAKE 1 TABLET BY MOUTH [...] polyethylene glycol 3350 17 gram/dose oral powder [id number] G ORALLY ONCE FOR 1 DAY TAKE DIRECTED BY MOUTH THE DAY BEFORE YOUR PROCEDURE. active Not Available Not Available N ot Available levofloxacin 500 mg tablet TAKE 1 TABLET BY MOUTH ONCE DAILY FOR 3 DAYS. START 01/07/22. active Not Available Not Available No t Available trihexyphenid yl 2 mg tablet TAKE 1 TABLET BY MOUTH THREE TIMES A DAY WITH MEALS active Not Available Not Available No t Available ondansetron 4 mg disintegratin g tablet DISSOLVE 1 TABLET BY MOUTH EVERY 8 HOURS NEEDED active Not Available Not Available No t Available losartan 100 mg tablet TAKE 1 TABLET BY MOUTH EVERY MORNING active Not Available Not Available No t Available fluticasone propionate 50 mcg/actuation nasal spray,suspens ion SPRAY 1 SPRAY IN EACH NOSTRIL EVERY TWELVE HOURS active Not Available Not Available No t Available clotrimazole 1 % topical cream APPLY 1 GRAM TOPICALLY TO AFFECTED AREA(S) TWICE DAILY FOR 21 DAYS active Not Available Not Available No t Available sertraline 50 mg tablet TAKE 1 TABLET BY MOUTH ONCE DAILY WITH 100 MG active Not Available Not Available No t Available doxycycline hyclate 100 mg tablet TAKE 1 TABLET BY MOUTH TWICE A DAY FOR 5 DAYS active Not Available Not Available No t Available Ventolin HFA 90 mcg/actuation aerosol inhaler INHALE 2 PUFFS BY MOUTH EVERY 4 HOURS NEEDED FOR WHEEZING OR SHORTNESS OF BREATH active Not Available Not Available No t Available Laxative (bisacodyl) 5 mg tablet,delaye d release [...] Not Available Not Available No t Available hydrochloroth iazide 12.5 mg tablet TAKE 1 TABLET BY MOUTH EVERY DAY active Not Available Not Available No t Available ondansetron HCl (PF) 4 mg/2 mL injection syringe 4 mg iv 2021 active Not Available Not Available Not Avai lable diclofenac 1 % topical gel APPLY 4 GRAMS TOPICALLY TO AFFECTED AREA(S) 4 TIMES A DAY IN THE MORNING, AT NOON, IN THE EVENING, AND AT BEDTIME NEEDED FOR PAIN active Not Available Not Available No t Available melatonin 5 mg tablet TAKE 1 TABLET BY MOUTH EVERY DAY AT BEDTIME active Not Available Not Available N ot Available cholecalcifer ol (vitamin D3) 50 mcg (2,000 unit) tablet TAKE 1 TABLET BY MOUTH DAILY IN THE MORNING active Not Available Not Available No t Available Certavite-Ant ioxidant 18 mg-400 mcg tablet TAKE 1 TABLET BY MOUTH EVERY MORNING active Not Available Not Available No t Available Arnuity Ellipta 200 mcg/actuation powder for inhalation INHALE 1 PUFF BY MOUTH EVERY DAY AT THE SAME TIME RINSE MOUTH AFTER USING active Not Available Not Available No t Available Compact Space Chamber USE WITH INHALER EVERY 4 HOURS NEEDED FOR ASTHMA active Not Available Not Available No t Available Dayvigo 5 mg tablet TAKE 1 TABLET BY MOUTH AT BEDTIME NEEDED for SLEEP active Not Available Not Available No t Available Vitals Date Recorded Heart rate Oxygen saturation Oxygen saturation in Arterial blood by Pulse oximetry Body temperature Respiratory rate Systolic And Diastolic Provider Name and Address Organization Details Last Updated DateTime 5 90 /min 97 % 97 % 98.9 [degF] 20 /min 129/80 mm[Hg] Not Available [employer] [employer] 5 16:12:34 Date Recorded Oxygen saturation Oxygen saturation in Arterial blood by Pulse oximetry Body temperature Respiratory rate Heart rate Systolic And Diastolic Provider Name and Address Organization Details Last Updated DateTime 2 99 % 99 % 98.3 [degF] 18 /min 90 /min 133/72 mm[Hg] Not Available [facility] 2 15:06:36 Date Recorded Body weight Respiratory rate Body height Heart rate Oxygen saturation Oxygen saturation in Arterial blood by Pulse oximetry Body temperature Body temperature Body weight Oxygen saturation Oxygen saturation in Arterial blood by Pulse oximetry Body height Provider Name and Address Organization Details Last Updated DateTime 2 59317.4 16 g 18 /min 160.02 cm 80 /min 100 % 100 % 97.9 [degF] 97.9 [degF] 34871.4 16 g 100 % 100 % 160.02 cm Not Available [facility] 12:41:22 Date Recorded Respiratory rate Heart rate Systolic And Diastolic Systolic And Diastolic Provider Name and Address Organization Details Last Updated DateTime 01/08/2022 18 /min 80 /min 168/106 mm[Hg] 168/106 mm[Hg] Not Available [facility] 12:41:22 Social History None recorded. Functional Status None recorded. Mental Status None recorded. Family History Nothing Reported. Medical History No medical history recorded. Past Encounters Encounter ID Performer Location Encounter Start Date Encounter Closed Date Diagnosis/Indication Diagnosis SNOMED-CT Code Diagnosis ICD10 Code Diagnosis IMO Codes Diagnosis Note [id number] Josseiln Patel MD [facility] [address] [place] [phone] 01/06/2022 15:02:35 03/08/2022 12:16:30 Diverticulitis 140495969 K57.92 concern for c. diff- yet less likely since only 3 stools today and no foul odor. Hydrated- will continue w/po hydration/ anti emetics/ anti diarrheal otc- will restart antibiotic today and x 3 more days- will increase flagyl to 3 x per day//patie nt unable to give stool spec while [facility] there in home.[facility] had no flagyl- did have Levaquin. May have APAP 650 mg q 6 hr prn. TO F/U PCP tomorrow. Pat aware if develops Temp > 100.4/ severe abd pain / syncope/ black or bloody emesis or stool- to go to the ER [id number] Josselin Patel MD [facility] [address] [place] [id number] 01/08/2022 11:23:28 03/08/2022 21:05:14 Diverticulitis [id number] K57.92 Hydrated- will continue w/po hydrationa dvised [...] or stool- to go to the ER [id number] MIRIAM PATEL MD [facility] [address] [place] [id number] 08/31/2024 16:00:18 09/03/2024 12:24:05 Acute exacerbation of chronic obstructive pulmonary disease 704448569 J44.1 Evaluation in the field was performed by my researcher colleague, as noted above, I provided real-time direction and supervisio n for this visit. The evaluation revealed 69-year-ol d male with a history of dementia and COPD (not on supplement al O ) .Patient s daughter reports worsening nighttime cough, poor appetite, and increased confusion, which is worse today.No urinary symptoms or fever, but she notes chills and worsening cough.Elizabeth ent reports rib pain from coughing.B aseline dementia, but daughter states confusion is worse than usual.Seen in the ED on 08/25, tested positive for influenza A.Chest X-ray: Mild interstiti al prominence with scattered peribronch ial thickening , no focal consolidat ion, no significan t change from prior.BNP elevated at 293 (baseline unknown). Vitals: BP 129/80 mmHg, HR 90, RR 20, SpO 97% RA, Temp 98.9 F.Exam: Alert, no acute distress. Lungs clear on the left, rhonchi at right lung bases. No lower extremity edema.Labs (ED): BUN 11, Creatinine 0.99.Covid and Flu negativeEC G: NSR, 69 bpm, QTc 412 ms, no acute ST-T changes.Al lergies: Hives with penicillin and amoxicilli n; unclear history with ceftriaxon e. Impression :COPD exacerbati on vs. post-viral pneumonia, less likely acute exacerbati on of heart failure . Plan:-Duon eb x1 administer ed; patient advised to continue MDI every 4-6 hours while awake.-Pre dnisone 40 mg daily prescribed ; first dose given by researcher. - Empiric doxycyclin e started due to concern for possible bacterial superinfec tion. No fluoroquin olones since can exacerbate confusion in the elderly.- Tessalon Perles prescribed ; first dose given by researcher. - Encouraged oral hydration; advised daughter to use a humidifier if needed to help loosen cough.-Parris haile advised follow-up with primary care early next week.- Red flags discussed with the daughter, including worsening cough, SOB, CP, fever, worsening symptoms despite treatment, nausea, vomiting, inability to tolerate PO, and worsening mental status. Primary care, consideran echocardio gram and a cardiology referral . The patient had an elevated BNP in the ED, and the chest X-ray showed mild interstiti al prominence . No lower extremity edema (MAGGIE) is present today , but the patient's daughter reports a worsening cough when lying down (orthopnea ). Dispositio n: We discussed the diagnostic uncertaint y of home visits and the risk associated with this. In this case, the patient and I felt this to be an acceptable and reasonable amount of risk given the benefit of avoiding an ED visit. We discussed the need to seek care urgently/e mergently in the setting of any new or worsening serious symptoms, particular ly worsening cough, SOB, CP, fever, worsening symptoms despite treatment, nausea, vomiting, inability to tolerate PO, and worsening mental status. Health Concerns Section Related Observation LastModified by Organization Detai ls LastModified Time None Recorded Concern Status LastModified by Organization Details LastModified Time None Recorded Advance Directives Directive None Recorded Payers Insurance Date Sequence Insurance Name Policy Number Policy Bruce Covered Member ID Bruce Member ID Guarantor Name 02/10/2024 1 [facility] - DOS PRIOR TO 2022 - DUAL ELIGIBLE (MEDICARE REPLACEMENT/ADV ANTAGE - HMO) Eddie Person [id number] Eddie Person 08/31/2024 1 [facility] - DOS ON OR AFTER 2022 - DUAL ELIGIBLE - SENIOR LIVING OPTIONS AND ONE CARE (MEDICARE REPLACEMENT/ADV ANTAGE - HMO) Eddie Person [id number] Eddie Person Notes Date Note Type Note Provider Name and Address Organization Details Recorded Time 01/06/2022 text/html ROS as noted in the HPI HPI: ALLERGIC TO: METAL; PENICILLIN AND SULFA [...] .................... .................... .................... .................... .................... .................... ............ Heel Pricker Note: Pt was diagnosed with diverticulitis end [...] .................... . Disposition: Fulfilled Josselin Patel MD [address] [place] [address],[address], [place], [phone], [facility] [employer] [facility] 01/06/2022 17:09:59 01/08/2022 text/html ROS as noted in the HPI HPI: PMH: diverticulitis allergies: PCN, Sulfacetamide member [facility] by [facility] a few days ago. He has hx of diverticulits, + loose stools, lower abd pain, afebrile. Currently taking cipro and flagyl, has follow up with PCP on Monday. Requesting [facility] visit today for ? dehydration and pain control. .................... .................... .................... .................... .................... .................... .................... . CRC Nursing Assessment: Comments: CRC RN DID NOT NEED ANY FURTHER INFO TO PROCESS VISIT SEGMD: Pat seen by mt 01/06/22- Bun 20/ cr. 1.2 electrolytes ok- [...] loperamide from us / family did not black pickler immodium. Stools loose not watery/ not black/bloody- 3 yesterday- none so far today- c/o diffuse abd pain- no fever- has had no meds for pain otc- ? dehydrated- not light headed - no syncope............. .................... .................... .................... .................... .................... .................... ......... Heel Pricker Note: Sent to a call for a [...] soft, non-tender, non-distended, no pain with palpation. [facility] orders 1 Liter IV Fluids, POC CMP and Tylenol 500mg PO. IV access initiated, blood sample obtained. CMP results uploaded to [employer]. Pt reports feeling slightly better after IV fluids. BP:157/78, P:66; Pt advised on proper diet during flare. Pt advised to take Tylenol 650mg q6hrs as needed for pain. Pt advised to purchase loperamide, and follow up with PCP on Monday. Red flags discussed. Pt and daughter have no further questions. .................... .................... .................... .................... .................... .................... .................... . Disposition: Fulfilled Josselin Patel MD [address] [place] [address],[address], [place], [phone], [employer] [facility] [employer] 01/08/2022 12:50:26 08/31/2024 text/html ROS as noted in the [facility] CRC Nurse Triage Notes (Bryant Tenorio): Reason For Request: patient is short of breath Patient Reports: Shortness of breath in setting of confusion Denies: Increased work of breathing/labored with or without fever Unable to speak in full sentences without distress Discoloration of skin -cyanosis Needs to sleep sitting up, can t catch breath Chief Complaints: Breathing Problems, Confusion PMH: Hypertension, COPD/Asthma, Severe Persistent Mental Illness (SPMI), Coronary Artery Disease PMH Reviewed at 08/31/2024 15:34 Allergies Reviewed at 08/31/2024 - :34 Comments: Additional PMH: Ophelia Cat Dog Or Other Pet Groomer verified the patient's name//address and phone number. Pt's daughter calling reporting pt having difficulty sleeping at night due to coughing. Daughter reports pt with poor appetite and increased confusion. Daughter reports pt was seen in the ER last week for a cough. Daughter states pt with chills and worsening cough. Pt reporting to daughter pain in ribs from coughing. Pt has hx of dementia but daughter reports pt is confused from baseline. Education provided on the response time and the patient was advised to monitor reported s/s and seek emergency treatment if needed -Charlene Tenorio RN [facility] Organization Information for Steve [facility]nel[facility] Business Legal Name: [employer]. Address: [address] [place] [id number], Mechanic Driver: Johnathan PALMERIA No.: [id number] [facility] POC Test Results from Steve Connelly Rapid influenza antigen (16:12:38) Flu: - Attachments uploaded as part of this test result can be found under Documents section. Rapid COVID antigen (16:12:39) COVID: - Attachments uploaded as part of this test result can be found under Documents section. EKG (16:31:43) EKG test performed. Attachments uploaded as part of this test result can be found under Documents section. .................... .................... .................... .................... .................... .................... .................... . [facility] Note From Steve Connelly: SC12 dispatched to the address listed above for the report of a male democrat with SOB. Arrival on scene, patient was found upstairs with daughter whom translated for SC, patient sitting upright in chair, conscious and alert but confused with dementia at baseline, patent airway, breathing non labored speaking in complete sentences, skin WPD. +/= Chest rise. +SOB, +CP, -NVD, -Trauma, -Fever. GCS 15. Lung sounds revealed rhonchi in the right lung but clear on the left. Daughter reports that patient has been having a productive cough along with chills, weakness, and difficulty ambulating over the past 2-3 months that has been worsening. Daughter advised that the patient has a history of dementia but appears to be more confused than normal which she noticed today. Daughter notes that patient has been having bilateral rib pain and chest pain for the past 3 months, patient states it is caused from coughing. Daughter reports that the patient was in the ED about a week ago and tested positive for FLU A. Daughter reports that patient has history of COPD, has been taking Dayquil and Albuterol inhaler with minimal relief. Daughter reports reduced food/fluid intake but has been compliant with medications. Daughter denies any fevers, recent trauma, or history of CHF. Patient vital signs obtained as noted. COVID/FLU POC tests performed as noted and negative for all. [facility] consulted, provided orders for 12 Lead EKG, DuoNeb treatment, 100mg Doxycycline PO, 200mg Benzonatate PO, and 40mg Prednisone PO. 12 Lead EKG obtained as noted, Computer interpretation advised sinus rhythm, 12 lead uploaded to [employer] for remote interpretation. Above medications were administered as ordered without incident, patient rights verified. Duoneb treatment administered as well via nebulizer with reported improvement. [facility] advised prescription for Doxycycline and Benzonatate sent to preferred pharmacy. Red flags discussed with patient and daughter, advised to call 911 if patient worsens or does not improve within the next 24-48 hours per [facility]. SC12 clear. [facility] Lab Orders: rapid SARS CoV 2 Ag, QL IA, respiratory specimen: Performed rapid flu (A+B): Performed [facility] Medication Orders: ipratropium 0.5 mg-albuterol 3 mg (2.5 mg base)/3 mL nebulization soln: Administered prednisone 20 mg tablet: Administered benzonatate 100 mg capsule: Administered doxycycline hyclate 100 mg tablet: Administered .................... .................... .................... .................... .................... .................... .................... . [facility] Consulted: Miriam Patel .................... .................... .................... .................... .................... .................... .................... . Disposition: Fulfilled MIRIAM PATEL MD [address], [place], [address], RAJINDER ERWIN 08/31/2024 17:36:31
--- OUTSIDE RECORDS SUMMARY | 2025-04-12 10:23 | XMS_ITS | Encounter Summary ---
Author Organization [employer] Address [address] [place] [address] Care Team Providers Care Scalehouse Attendant Name Role Phone Phuong Cortes MD Primary Care Provider [phone] Encounter Details Date Type Department Care Team (Late Contact Info) Description 09/12/2022 Orders Only [facility] [address] [place], [place] [phone] Jillian Oh LPN Social History Tobacco Use Types Packs/Day Years Used Date Smoking Tobacco: Never Assessed Sex and Gender Information Value Date Recorded Sex Assigned at Male 04/25/2022 10:17 AM EDT Legal Sex Male 10:17 AM EDT Gender Identity Male 04/25/2022 10:17 AM EDT Sexual Orientation Choose not to disclose 2021 10:17 AM EDT documented as of this encounter Plan of Treatment Upcoming Encounters Date Type Department Care Team (Late Contact Info) Description 07/10/2025 11:00 AM EST Office Visit [facility] [address] [place] [address] Miranda Sherwood, OD [address] [place] [address] documented as of this encounter Visit Diagnoses Not on filedocumented in this encounter Care Teams Scalehouse Attendant Relationship Specialty Start Date End Date Phuong Cortes MD [address] [place], [place] [phone] PCP - General Family Medicine 02/04/21 [facility] 04/08/21 10/17/24 [facility] 09/11/24 documented as of this encounter
--- OUTSIDE RECORDS SUMMARY | 2025-04-12 10:23 | XMS_ITS | Encounter Summary ---
Author Organization [employer] Address [address] [place] [address] Care Team Providers Care Owner Professional Engineer Name Role Phone Phuong Cortes MD Primary Care Provider [phone] Reason for Visit * Reason Onset Date Comments Med Refill Referral 02/10/2023 Encounter Details Date Type Department Care Team (Late st Contact Info) Description 02/10/2023 Refill [facility] [address] [place], [place] [phone] Phuong Cortes MD [address] [place], [place] [phone] Social History Tobacco Use Types Packs/Day Years [...] encounter Miscellaneous Notes * Telephone Encounter - Nurys Weaverona - 02/20/2023 11:54 AM EDT PT came in requesting a Referral for care management for food assistance since he has nothing in his home. Contact number [phone] documented in this encounter Plan of Treatment Upcoming Encounters Date Type Department Care Team (Late st Contact Info) Description 07/10/2025 11:00 AM EST Office Visit [facility] [address] [place] [address] Presley Miranda, OD [address] [place] [address] documented as of this encounter Visit Diagnoses Not on filedocumented in this encounter Care Teams Owner Professional Engineer Relationship Specialty Start Date End Date Phuong Cortes MD [address] [place] [address] PCP - General Family Medicine 02/04/21 [facility] 04/08/21 10/17/24 [facility] 09/11/24 documented as of this encounter
--- OUTSIDE RECORDS SUMMARY | 2025-04-12 10:23 | XMS_ITS | Encounter Summary ---
Author Organization [employer] Address [address] [place] [address] Care Team Providers Care Clinical Trial Leader Name Role Phone Phuong Cortes MD Primary Care Provider [phone] Reason for Visit * Reason Onset Date Comments Med Refill 12/26/2023 Encounter Details Date Type Department Care Team (Late st Contact Info) Description 12/26/2023 Telephone [facility] [address] [place], [place] [phone] Phuong Cortes MD [address] [place], [place] [phone] Med Refill Social History Tobacco Use Types Packs/Day Years [...] is your housing situation today? I have benniechristine leong 04/11/[address] [...] encounter Miscellaneous Notes * Telephone Encounter - Kody Hernandez - 12/26/2023 11:45 AM EDT TC from pt requesting medication refill. Medications needing refill : atenolol (Tenormin) 25 MG tablet and Aspirin Low Dose 81 MG EC tablet To be sent to: [facility] - [place], [place] - [address] [facility] documented in this encounter Plan of Treatment Upcoming Encounters Date Type Department Care Team ([facility] st Contact Info) Description 07/10/2025 11:00 AM EST Office Visit [facility] [address] [place] [address] Miranda Sherwood, OD [address] [place] [address] documented as of this encounter Visit Diagnoses Not on filedocumented in this encounter Additional Health Concerns Assessment Noted Time PHQ-9 Depression Total Score: 9 09/12/19 24 10:36 AM EDT documented as of this encounter Care Teams Clinical Trial Leader Relationship Specialty Start Date End Date Phuong Cortes MD [address] [facility] [place] [address] PCP - General Family Medicine 02/04/21 [facility] 04/08/21 10/17/24 [facility] 09/11/24 documented as of this encounter
--- NOTE | 2025-04-12 10:37 | ED.FALL ---
HPI - Fall General Chief Complaint: Fall Stated Complaint: Imaging for head dr called Time Seen by Provider: 04/12/25 10:36 Source: patient, family (daughter) and staff interpreter (Panamanian) Mode of arrival: ambulatory Limitations: language barrier (Panamanian) History of Present Illness ED Provider: SANTA DIAZ PA-C HPI Narrative: 70 year old male with pmhx significant for asthma, hiatal hernia, tubular adenoma, dysphagia and GERD presents to the ED today with his daughter for evaluation s/p fall occurring yesterday. Patient lives at home alone. His daughter and son visit frequently throughout the day to care for him. Patient states that he was in the shower last night around 1800 when he felt the room spinning. His heart began racing. He went to step out of the shower and tripped on the shower ledge, causing him to fall forward and strike his right yazidi on the corner of the cabinet. He is unsure if he lost consciousness. His daughter states that his grandson found patient on the bathroom floor between 2030 and 2100. It is unclear how long he was on the ground for. His daughter reports speaking with him on the phone around 1830 and he was at his baseline. Daughter states that grandson reported patient had slight slurred speech last night following the fall which has resolved. He has otherwise been at his baseline. Patient reports feeling fatigued. He is on chronic percocet reportedly due to his torticollis. Last took this sloop captain. Daughter states that patient is currently following with cardiology due to bradycardia. His PCP recently discontinued some of his BP meds due to low heart rate approximately 2 weeks ago. Daughter cannot recall which medications were adjusted. Daughter also reports patient has been exhibiting behavioral symptoms concerning for dementia x this past year. awaiting evals from PCP. Related Data Home Medications ?Medication ?Instructions ?Recorded ?Confirmed aspirin 81 mg tablet,delayed 81 mg PO DAILY 01/21/22 09/18/23 release atorvastatin 20 mg tablet 20 mg PO DAILY 01/21/22 09/18/23 amlodipine 10 mg tablet 1 tab PO QAM 05/10/22 09/18/23 atenolol 25 mg tablet 1 tab PO QPM 05/10/22 09/18/23 cetirizine 10 mg tablet 1 tab PO DAILY 05/10/22 09/18/23 clonazepam 0.5 mg tablet (Klonopin) 0.5 tab PO DAILY anxiety 05/10/22 09/18/23 fluticasone propionate 110 2 puff inhalation BID 05/10/22 09/18/23 mcg/actuation HFA aerosol inhaler (Flovent HFA) fluticasone propionate 50 1 spray intranasal BID 05/10/22 09/18/23 mcg/actuation nasal spray,suspension ibuprofen 600 mg tablet 1 tab PO BID PRN pain 05/10/22 09/18/23 losartan 100 mg tablet 1 tab PO QAM 05/10/22 09/18/23 multivitamin-ferrous 1 tab PO DAILY 05/10/22 09/18/23 fumarate-folic acid 18 mg-400 mcg tablet (Certavite-Antioxidant) sertraline 100 mg tablet 1.5 tab PO DAILY 05/10/22 09/18/23 cholecalciferol (vitamin D3) 50 50 mcg PO DAILY 06/02/22 09/18/23 mcg (2,000 unit) tablet donepezil 5 mg tablet 5 mg PO DAILY 06/02/22 09/18/23 quetiapine 100 mg tablet 100 mg PO BEDTIME 06/02/22 09/18/23 sertraline 50 mg tablet 50 mg PO DAILY 06/02/22 09/18/23 tamsulosin 0.4 mg capsule 0.4 mg PO BEDTIME 06/02/22 09/18/23 acetaminophen 500 mg tablet mg PO 09/20/23 nitrofurantoin 1 cap PO BID 09/20/23 monohydrate/macrocrystals 100 mg capsule clotrimazole 1 % topical cream appl topical DAILY 09/21/23 Previous Rx's ?Medication ?Instructions ?Recorded capsaicin-menthol 0.025 %-1.25 % 1 patch topical BID-TID PRN pain 7 09/21/23 topical patch (Salonpas days #6 ea (capsaicin-menthol)) omeprazole 20 mg capsule,delayed See Rx Instructions .Route 04/29/24 release .COMPLEX #90 caps trihexyphenidyl 2 mg tablet 2 mg PO TID 90 days #270 tabs 12/30/24 tizanidine 2 mg tablet 2 mg PO BID PRN muscle spasticity 02/18/25 30 days #60 tabs fluticasone furoate 200 1 inh inhalation DAILY #30 ea 03/07/25 mcg/actuation blister powder for inhalation (Arnuity Ellipta) diclofenac sodium 75 mg 75 mg PO BID 30 days #60 tabs 04/09/25 tablet,delayed release oxycodone-acetaminophen 5 mg-325 1 tab PO Q12H PRN pain 30 days #60 04/11/25 mg tablet (Percocet) tabs Allergies Allergy/AdvReac Type Severity Reaction Status Date / Time Penicillins Allergy Intermediate Hives Verified 04/12/25 10:11 Sulfa (Sulfonamide Allergy Intermediate Hives Verified 04/12/25 10:11 Antibiotics) morphine AdvReac Intermediate Vomiting Verified 04/12/25 10:11 Review of Systems Review of Systems: Yes all other systems are reviewed and are negative PMFSH Past Medical History Attestation statement: The following information was validated with the patient. Source: old records reviewed and nursing notes reviewed Medical History Memory problem Erectile dysfunction Depressed Anxiety Back pain HTN (hypertension) HLD (hyperlipidemia) Surgical History History of esophagogastroduodenoscopy (EGD) Hx of inguinal hernia repair Hx of colonoscopy Social History Social History Are you a primary critical care physician to a significant other at home: No Do you presently have visiting nurse or other home services: Yes (daughter, [employer] CONTROLS ENGINE[employer], [employer]) Alcohol intake: former Patient Tobacco Use Status: Never used Tobacco Tobacco use type: Cigarette Physical Exam Vital Signs: Vital Signs: Last Vital Signs Temp 98.7 F 04/12/25 10:10 Pulse 61 04/12/25 12:40 Resp 18 04/12/25 10:10 BP 143/65 H 04/12/25 12:40 Pulse Ox 95 04/12/25 12:39 O2 Del Method Room Air 04/12/25 12:39 BMI result Body Mass Index 29.7 hypertensive, vitals are otherwise wnl General: Well appearing, in no acute distress. Skin: Warm, dry, intact. No rashes or lesions. Head: Normocephalic, atraumatic. EENT: Hearing is intact b/l. Conjunctiva clear. Sclera is anicteric. PERRLA. EOM intact. Moist mucous membranes.? Neck: Supple without LAD Cardiac: Chest wall symmetric. RRR Lungs: Normal respiratory effort without accessory muscle use. CTA bilaterally Abdomen: Soft, non-tender, non-distended. No rebound tenderness or guarding. Positive BS x4. Back: No midline spinous or paraspinal tenderness. No step off deformity. Ext: +small area of ecchymosis noted to right thenar eminence. no palpable induration or fluctuance. no deformity. FROM intact to right wrist and all digits. no snuffbox tenderness. no palpable deformities or tenderness. palpable radial pulse. +abrasion noted to anterior aspect of left knee without deformity/swelling. FROM intact to L knee. palpable dp pulse. Neuro: AOx3. Normal speech. NIH 0. No slurred speech, pronator drift, facial droop. Strength 5/5 intact throughout. No saddle anesthesia. Sensation intact to light touch. NV intact distally. Ambulating with steady gait. Psych: Appropriate mood and affect. Responds appropriately to questions. Course Course Course Narrative: CBC without leukocytosis or left shift. Normocytic anemia, H&H 10.4/32, downtrending when compared to priors. Chemistry without acute electrolyte abnormality requiring intervention. No UVALDO. Liver function at baseline. Creatinine kinase 306 - no concern for rhabdo. Troponin WNL at 5.2. UA pending. CT head without bleed or skull fracture. CT cervical spine without acute fracture. Incidental finding of bone heterogeneity with the parent coarsening of trabecular markings which may be related to Paget's disease however malignancy is not completely excluded. Recommending further evaluation with a bone scan. > xrs pending I was informed by RN that the patient had left the ED with his daughter without completing treatment. Patient left the emergency department before myself or any of the other clinicians could review or explain physical exam findings, test results, need or lack there of for additional testing, treatment options, or a treatment plan. Medical Decision Making Medical Decision Making MDM Narrative: 70 year old male with pmhx significant for asthama, hiatal hernia, tubular adenoma, dysphagia and GERD presents to the ED today with his daughter for evaluation s/p fall occurring yesterday. patient is hypertensive, vitals are otherwise wnl. Differential diagnosis includes anemia, electrolyte abnormality, dehydration, orthostatic hypotension, vasovagal near syncope, intracranial bleed, arrhythmia, wrist/knee fracture/ contusion. Plan for labs, ekg, imaging, ortho vitals, and re-evaluation. Differential Diagnosis Differential Diagnoses: The differential diagnosis associated with the presentation includes as above Lab Data MDM Lab Attestation statement: I reviewed the patient's lab results. as above. 04/12/25 11:45 04/12/25 11:45 Labs: Lab Results 04/12/25 Range/Units 11:45 WBC 5.6 (4.8-10.8) X10*3/uL RBC 3.62 L (4.60-5.80) X10*6/uL Hgb 10.4 L (14.0-18.0) g/dl Hct 32.0 L (42.0-52.0) % MCV 88.4 (80.0-98.0) fL MCH 28.7 (27.0-33.0) pg MCHC 32.5 (31.0-36.0) g/dl RDW 14.6 (11.0-16.0) % Plt Count 142 L (160-400) X10*3/uL MPV 10.7 (9.4-12.4) fL Immature Gran % (Auto) 0.5 H (0.0-0.4) % Neut % (Auto) 60.4 (45-73) % Lymph % (Auto) 25.9 (20-40) % [place] % (Auto) 8.9 (2-11) % Eos % (Auto) 4.1 H (0-4) % Baso % (Auto) 0.2 (0-2) % Lymph # (Auto) 1.5 (1.2-4.9) X10*3/uL [place] # (Auto) 0.5 (0.1-1.2) X10*3/uL Eos # (Auto) 0.2 (0.0-0.4) X10*3/uL Baso # (Auto) 0.0 (0.0-0.2) X10*3/uL Abs Immat Gran (auto) 0.03 (0.00-0.03) X10*3/uL Absolute Neuts (auto) 3.4 (2.0-8.3) x10*3/uL Absolute Nucleated RBC 0.000 (0.0-0.012) X10*3/uL Nucleated RBC % (auto) 0.0 (0.0-0.2) /100WBC Sodium 141 (135-145) mmol/L Potassium 4.2 (3.3-5.1) mmol/L Chloride 108 (96-108) mmol/L Carbon Dioxide 28 (22-29) mmol/L Anion Gap 9 L (12-20) BUN 15 (9-16) mg/dL Creatinine 1.04 (0.5-1.4) mg/dL Estim Creat Clear Calc 62.5 Estimated GFR > 60 Random Glucose 104 (60-115) mg/dL Calcium 8.4 (8.4-10.2) mg/dL Magnesium 2.0 (1.6-2.6) mg/dL Total Bilirubin 0.2 (0.0-1.0) mg/dL AST 27 (5-37) U/L ALT 26 (0-40) U/L Alkaline Phosphatase 87 (39-117) U/L Total Creatine Kinase 306 H (38-174) U/L Troponin I High Sens 5.2 (<3.5-35.0) ng/L Total Protein 6.6 (6.5-8.0) g/dL Albumin 3.9 (3.5-5.0) g/dL Independent Interpretation I performed an independent interpretation of an: Plain X-Ray and CT Scan Interpretation: ct head without bleed ct cervical spine without fracture Radiology Impression Discussion of test interpretation with radiology: I have reviewed the radiologist's reading. Radiologist Impression: Procedure(s): CT cervical spine wo IV con Accession Number(s): [id number] cc: Phuong Cortes; Santa Diaz~ Report Number: [id number]: Total DLP = 492.24 mGy-cm Reason for Exam: fall with head strike CLINICAL HISTORY: fall with head strike CT cervical spine without contrast Comparison: None provided Findings: Normal vertebral body alignment. There is heterogeneity of bone density with areas of relative lucency. There is coarsening of trabecular markings. Multilevel degenerative disc disease and facet osteoarthritis. No central canal stenosis. No acute fractures or dislocations. Visualized intracranial contents are unremarkable. No cervical fluid collections or masses. No consolidation or effusion at the lung apices. IMPRESSION: 1. No acute cervical spine fracture. 2. Bone heterogeneity with apparent coarsening of trabecular markings may be related to Paget's disease. Malignancy not completely excluded. This could be further evaluated with bone scan. This document has been electronically signed by: Anitha Craig MD on 04/12/2025 13:31:01 Procedure(s): CT head/brain wo IV con Accession Number(s): [id number] cc: Phuong Cortes; Santa Diaz~ Report Number: [id number]: Total DLP = 680.69 mGy-cm Reason for Exam: fall with head strike CLINICAL HISTORY: fall with head strike CT head without contrast Comparison: None provided Findings: No intra-axial mass, midline shift, hydrocephalus, or acute hemorrhage. Involutional change brain parenchyma, compatible with age. Mild white matter disease. There is no sinus or mastoid fluid. The orbits are unremarkable. No skull fracture. IMPRESSION: No skull fracture or intracranial hemorrhage. This document has been electronically signed by: Anitha Craig MD on 04/12/2025 13:28:22 Independent Historian Clinical information obtained from an independent historian. History obtained from or confirmed by: Other (daughter) External Record Review External record reviewed: Inpatient record Prescription Management I considered prescription management with: Pain Medication Chronic Conditions Patient?s care impacted by: Hypertension Social Determinants Patient?s care significantly limited by Social Determinants of Health including: Other Social Determinant of Health Critical Care Time Critical Care Time Critical Care Time: No Discharge Plan Discharge Clinical Impression: Fall Patient Disposition: Left W/O Completing Treatment Prescriptions: No Action omeprazole 20 mg capsule,delayed release(DR/EC) See Rx Instructions .ROUTE .COMPLEX Qty: 90 3RF Dose Instruction: TAKE 1 CAPSULE BY MOUTH EVERY DAY Rx Instructions: TAKE 1 CAPSULE BY MOUTH EVERY DAY trihexyphenidyl 2 mg tablet 2 mg PO TID 90 Days Qty: 270 1RF Rx Instructions: give with food (meal/snack) tizanidine 2 mg tablet 2 mg PO BID PRN (Reason: muscle spasticity) 30 Days Qty: 60 2RF diclofenac sodium 75 mg tablet,delayed release (DR/EC) 75 mg PO BID 30 Days Qty: 60 3RF oxycodone-acetaminophen [Percocet] 5-325 mg tablet 1 tab PO Q12H PRN (Reason: pain) 30 Days Qty: 60 0RF Rx Instructions: Partial Fill upon patient request. cetirizine 10 mg tablet 1 tab PO DAILY clonazepam [Klonopin] 0.5 mg tablet 0.5 tab PO DAILY atenolol 25 mg tablet 1 tab PO QPM amlodipine 10 mg tablet 1 tab PO QAM ibuprofen 600 mg tablet 1 tab PO BID PRN (Reason: pain) losartan 100 mg tablet 1 tab PO QAM fluticasone propionate 50 mcg/actuation spray,suspension 1 spray intranasal BID fluticasone propionate [Flovent HFA] 110 mcg/actuation HFA aerosol inhaler 2 puff inhalation BID Certavite-Antioxidant 18-400 mg-mcg tablet 1 tab PO DAILY sertraline 100 mg tablet 1.5 tab PO DAILY aspirin 81 mg tablet,delayed release (DR/EC) 81 mg PO DAILY atorvastatin 20 mg tablet 20 mg PO DAILY cholecalciferol (vitamin D3) 50 mcg (2,000 unit) tablet 50 mcg PO DAILY sertraline 50 mg tablet 50 mg PO DAILY quetiapine 100 mg tablet 100 mg PO BEDTIME tamsulosin 0.4 mg capsule 0.4 mg PO BEDTIME donepezil 5 mg tablet 5 mg PO DAILY fluticasone furoate [Arnuity Ellipta] 200 mcg/actuation blister with device 1 inh inhalation DAILY Qty: 30 3RF nitrofurantoin monohyd/m-cryst 100 mg capsule 1 cap PO BID acetaminophen 500 mg tablet PO clotrimazole 1 % cream topical DAILY Salonpas (capsaicin-menthol) 0.025-1.25 % adhesive patch,medicated 1 patch topical BID-TID PRN (Reason: pain) 7 Days Qty: 6 3RF Rx Instructions: may leave on area for up to 8 hrs Discharge Date/Time: 04/12/25 14:27
--- NOTE | 2025-04-12 10:55 | ECG_ITS ---
Test Reason : UNWITNESSED FALL Blood Pressure : */* mmHG Vent. Rate : 49 BPM Atrial Rate : 49 BPM P-R Int : 134 ms QRS Dur : 102 ms QT Int : 468 ms P-R-T Axes : 60 14 30 degrees QTcB Int : 422 ms Sinus bradycardia Otherwise normal ECG When compared with ECG of 06-Apr-2019 15:10, Vent. rate has decreased by 25 bpm Referred By: Santa Diaz Electronically Signed By: Ajit Vidales
--- NOTE | 2025-04-12 11:01 | MHC.EDTECH ---
EKG and labs delayed to due pt being in CT
[2025-04-12 11:48] LABS: MANUAL DIFF FLAG NO
[2025-04-12 11:49] LABS: Hematocrit 32.0 % (42.0-52.0); Hemoglobin 10.4 g/dl (14.0-18.0); Imm Gran Abs Auto 0.03 X10*3/uL (0.00-0.03); Imm Gran Pct Auto 0.5 % (0.0-0.4); Lymphocytes Absolute Auto 1.5 X10*3/uL (1.2-4.9); Mean Corpuscular HGB Conc 32.5 g/dl (31.0-36.0); Mean Corpuscular Hemoglobin 28.7 pg (27.0-33.0); Mean Corpuscular Volume 88.4 fL (80.0-98.0); NRBC Abs Auto 0.000 X10*3/uL (0.0-0.012); NRBC Pct Auto 0.0 /100WBC (0.0-0.2); Platelet Count 142 X10*3/uL (160-400); Red Blood Count 3.62 X10*6/uL (4.60-5.80); White Blood Count 5.6 X10*3/uL (4.8-10.8)
[2025-04-12 12:07] LABS: Alanine Aminotransferase 26 U/L (0-40); Albumin Level 3.9 g/dL (3.5-5.0); Alkaline Phosphatase 87 U/L (39-117); Anion Gap 9 (12-20); Aspartate Amino Transferase 27 U/L (5-37); Blood Urea Nitrogen 15 mg/dL (9-16); Calcium 8.4 mg/dL (8.4-10.2); Carbon Dioxide 28 mmol/L (22-29); Chloride 108 mmol/L (96-108); Creatinine Clr Calc Pharmacy 62.5; Estimated Glomerular Filt Rate > 60; Magnesium 2.0 mg/dL (1.6-2.6); Potassium 4.2 mmol/L (3.3-5.1); Sodium 141 mmol/L (135-145); Total Protein 6.6 g/dL (6.5-8.0)
[2025-04-12 12:13] LABS: Troponin-I High Sensitivity 5.2 ng/L (<3.5-35.0)
[2025-04-12 12:39] VITALS: BP 139/66; PULSE 49; O2SAT 95
[2025-04-12 12:40] VITALS: BP 138/73; BP 143/65; PULSE 61; PULSE 62
--- NOTE | 2025-04-12 14:26 | PC.NURSE ---
Informed by staff that patient had left the dept w/ family while t/w was hanging blood products for another patient. Provider Santa and dyer helper Layla made aware. Pt. LWCT.
== END 2025-04-12 14:27 | disposition left against medical advice (07) ==
PROVIDERS: Physician Assistant Medical; Emergency Provider Emergency Medicine; PCP General Practice
DX: S09.90XA Unspecified injury of head, initial encounter (principal); J45.909 Unspecified asthma, uncomplicated; W18.39XA Other fall on same level, initial encounter; Y93.E1 Activity, personal bathing and showering; Y92.002 Bathroom of unspecified non-institutional (private) residence as the place of occurrence of the external cause; Y99.9 Unspecified external cause status; Z53.21 Procedure and treatment not carried out due to patient leaving prior to being seen by health care provider
CPT/HCPCS: 36415; 70450; 72125; 73110; 73130; 73564; 80053; 82550; 83735; 84484; 85025; 93005; 99284

== ENCOUNTER → 2025-04-12 10:55 | Outpatient (BNV) | payer OTHER, SELFPAY | PROVIDERS: Emergency Provider Emergency Medicine; PCP General Practice; Visit Provider Internal Medicine Cardiovascular Disease | DX: R00.1 Bradycardia, unspecified (principal) | CPT/HCPCS: 93010 ==

== ENCOUNTER → 2025-04-12 10:56 | Outpatient (BNV) | payer OTHER, SELFPAY | PROVIDERS: Emergency Provider Emergency Medicine; PCP General Practice; Visit Provider Radiology Diagnostic Radiology | DX: S09.90XA Unspecified injury of head, initial encounter (principal); Z04.3 Encounter for examination and observation following other accident; S60.221A Contusion of right hand, initial encounter; W19.XXXA Unspecified fall, initial encounter | CPT/HCPCS: 70450; 72125; 73110; 73130; 73564 ==

== ENCOUNTER 2025-05-14 12:42 | Outpatient (AMB) | payer OTHER, SELFPAY ==
--- NOTE | 2025-05-14 13:01 | A.OFFVIS_ITS ---
Intake Visit Reasons: Follow up Accompanied by: Daughter Allergies Penicillins Allergy (Intermediate, Verified 05/14/25 13:05) Hives Sulfa (Sulfonamide Antibiotics) Allergy (Intermediate, Verified 05/14/25 13:05) Hives morphine Adverse Reaction (Intermediate, Verified 05/14/25 13:05) Vomiting Medication List - Last Reconciled 05/14/25 by Kimi Estrada, BELEN acetaminophen mg PO albuterol sulfate 90 mcg/actuation (Ventolin HFA) 2 puffs inhalation Q4H PRN amlodipine 1 tab PO QAM aspirin 81 mg PO DAILY atenolol 1 tab PO QPM atorvastatin 20 mg PO DAILY capsaicin-menthol 0.025-1.25 % (Salonpas (capsaicin-menthol)) 1 patch topical BID-TID PRN 7 days cetirizine 1 tab PO DAILY cholecalciferol (vitamin D3) 50 mcg PO DAILY clonazepam (Klonopin) 0.5 tabs PO DAILY clotrimazole 1% appl topical DAILY diclofenac sodium 75 mg PO BID 30 days donepezil 10 mg PO BEDTIME fluticasone furoate 200 mcg/actuation (Arnuity Ellipta) 1 inh inhalation DAILY fluticasone propionate 110 mcg/actuation (Flovent HFA) 2 puffs inhalation BID fluticasone propionate 50 mcg/actuation 1 spray intranasal BID gabapentin 600 mg PO BEDTIME ibuprofen 1 tab PO BID PRN lemborexant (Dayvigo) 5 mg PO BEDTIME PRN losartan 1 tab PO QAM hpdggpwmbboh-mohi-qacfu acid 18-400 mg-mcg (Certavite-Antioxidant) 1 tab PO DAILY nitrofurantoin monohyd/m-cryst 100 mg 1 cap PO BID omeprazole TAKE 1 CAPSULE BY MOUTH EVERY DAY oxycodone-acetaminophen 5-325 mg (Percocet) 1 tab PO Q12H PRN 30 days quetiapine 100 mg PO BEDTIME ropinirole 1 mg PO BEDTIME sertraline 1.5 tabs PO DAILY tamsulosin 0.4 mg PO BEDTIME tizanidine 2 mg PO BID PRN 30 days trihexyphenidyl 2 mg PO TID 90 days HPI Comments Details: He was here with his daughter who was working as his ELEVATOR SERVICEMAN. Chronic neck pain continues, wakes with stiff neck. Has been taking Percocet 2/day. No significant change with tizanidine 2mg twice a day as needed. He tried cyclobenzaprine in the past which he thought may have worked better and was asking if medication could be tried again. No difficulty eating, drinking, or swallowing. No eye pain or diplopia. Has had lifelong strabismus.?Xrays show advancing spondylosis. Neck pain returned since Botox for torticollis and neck pain has wore off. Did not like how he felt after Botox and refuses any more Botox. Severe arthritic knee pain. He says that he cannot control the neck and it turns to the left side. No neck injuries are reported. [facility] Medical History Memory problem Erectile dysfunction Depressed Anxiety Back pain HTN (hypertension) HLD (hyperlipidemia) Surgical History History of esophagogastroduodenoscopy (EGD) Hx of inguinal hernia repair Hx of colonoscopy Social History Are you a primary home health care respiratory therapist to a significant other at home: No Do you presently have visiting nurse or other home services: Yes (daughter, ELEVATOR SERVICEMAN, [employer]) Alcohol intake: former Patient Tobacco Use Status: Never used Tobacco Tobacco use type: Cigarette Review of Systems Const Denies chills, Denies daytime sleepiness, Denies difficulty sleeping, Denies fatigue, Denies fever(s), Denies frequent falls, Reports headache(s), Denies increased appetite, Denies poor appetite, Denies snoring, Denies weakness, Denies weight gain and Denies weight loss Eyes Denies loss of vision ENT Denies vertigo, Denies dizziness, Reports headache(s) and Reports neck pain Card Denies chest pain at rest, Denies chest pain with activity, Denies syncope, Denies leg edema, Denies palpitations, Denies dyspnea and Denies dyspnea on exertion Resp Denies cough, Denies dyspnea, Denies dyspnea on exertion and Denies snoring GI Denies abdominal pain, Denies constipation, Denies heartburn, Denies diarrhea and Denies nausea Denies urinary frequency, Denies urinary incontinence and Denies urinary urgency Musc Denies abnormal gait, Denies back pain, Denies myalgias, Denies arthralgias, Reports neck pain, Denies numbness and Denies tingling Neuro Denies abnormal gait, Denies vertigo, Denies dizziness, Denies syncope, Denies frequent falls, Reports headache(s), Denies lack of coordination, Denies loss of vision, Denies memory loss, Denies numbness, Denies Other visual disturbances, Denies restless legs, Denies seizure-like activity, Denies tingling, Denies paresthesias, Reports tremor(s) and Denies weakness Psych Denies anxiety, Denies depression, Denies auditory hallucinations, Denies memory loss and Denies visual hallucinations Endo Denies fatigue and Denies palpitations Physical Exam Const Other: General Appearance:? normal, in no acute distress. Heart:? S1, S2 normal, no murmurs. Lungs:? clear anteriorly and posteriorly. Musculoskeletal:? normal. Extremities:? no edema. Psych:? alert, oriented, cognitive function intact, cooperative with exam. Neuro Other: Abnormal Neurological Findings:?Left torticollis and slight intermittent retrocollis with slight dystonic tremor. Mental Status: alert and oriented X 3. Normal attention, orientation, memory, and affect. Cranial Nerves: Pupils are equal, round, and reactive to light. External ocular muscles are intact. Visual [place] are full, no ptosis. Face is symmetrical, no facial weakness or droop. Facial sensations are normal. Tongue protrudes in midline. Palate elevates symmetrically. Shoulder shrugging is normal Motor Examination: Normal muscle tone, bulk and strength. No atrophy or fasciculations. No drift of the extended upper extremities. DTR 2+. Plantars are flexor. Sensory Exam: Normal light touch, temperature, pinprick, vibration, and joint- position sensations. Rhomberg sign is absent. Coordination: No ataxia. No titubation. Gait Exam: Within normal limits. Cerebellar Signs: Gjdpht-xi-mtcg is okay. Extrapyramidal System: Tremor as above. No rigidity with normal facial expressions. No bradykinesia. No bradyphrenia. Normal arm swing and posture. No propulsion or retropulsion. Speech: Normal. Assessment & Plan Assessment & Plan (1) Chronic neck pain: Code(s): M54.2 - Cervicalgia; G89.29 - Other chronic pain Category: Medical Plan: Continue diclofenac sodium 75mg 1 tablet twice a day after meals. Continue Percocet 5-325mg 1 tablet q12h as needed for pain #60 for 30 days. (2) Torticollis: Code(s): M43.6 - Torticollis Category: Medical Plan: No significant improvement in pain with tizanidine 2mg twice a day. Discussed option for trying higher dose, however he would like to try cyclobenzaprine as he recalls trying medication in the past and thought it may have worked better. Stop tizanidine. Start cyclobenzaprine 5mg 1 tablet twice a day as needed for muscle spasm, use/side effects reviewed. Follow up in 6 months or sooner as needed. Plan Meds tried: botox Medications: New cyclobenzaprine 5 mg PO BID PRN 60 tabs 2RF muscle spasm 30 days Discontinued tizanidine Discontinued Reason: Doctor's Order 2 mg PO BID 30 days PRN 60 tabs 2RF muscle spasticity Coding Level of Care Code Est Pt Level 4 (64982) Diagnoses Chronic neck pain M54.2; G89.29 Torticollis M43.6
--- OUTSIDE RECORDS SUMMARY | 2025-05-15 00:04 | XMS_ITS | Encounter Summary ---
Author Organization [employer] Address [address] 7[address] [place] [address] Care Team Providers Care Gypsum Block Setter Name Role Phone Phuong Cortes MD Primary Care Provider [phone] Encounter Details Date Type Department Care Team ([facility] st Contact Info) Description 12/15/2023 Orders Only [facility] [address] [place], [place] [phone] Barney Farr MD [address] [place], [place] [phone] Social History Tobacco Use Types Packs/Day Years [...] AM EST Office Visit [facility] OPTOMETRY [address] [place] [address] Miranda Sherwood, OD [address] [place] [address] documented as of this encounter Visit Diagnoses Not on filedocumented in this encounter Additional Health Concerns Assessment Noted Time PHQ-9 Depression Total Score: 9 09/12/19 24 10:36 AM EDT documented as of this encounter Care Teams Gypsum Block Setter Relationship Specialty Start Date End Date Phuong Cortes MD [address] [place] [phone] PCP - General Family Medicine 02/04/21 [facility] 04/08/21 10/17/24 [facility] 09/11/24 documented as of this encounter
--- OUTSIDE RECORDS SUMMARY | 2025-05-15 00:04 | XMS_ITS | Encounter Summary ---
Author Organization [employer] Address [address] [place] [address] Care Team Providers Care Film Or Videotape Editor Name Role Phone Phuong Cortes MD Primary Care Provider [phone] Reason for Visit * Reason Onset Date Comments Med Refill 12/09/2024 Encounter Details Date Type Department Care Team (Late st Contact Info) Description 12/09/2024 Refill [facility] [address] [place] [address] Barney Farr MD [address] [place] [address] Social History Tobacco Use Types Packs/Day Years [...] Description 07/10/2025 11:00 AM EST Office Visit [facility] OPTOMETRY [address] [place] [address] Miranda Sherwood, OD [address] [place] [address] documented as of this encounter Visit Diagnoses Not on filedocumented in this encounter Additional Health Concerns Assessment Noted Time PHQ-9 Depression Total Score: 9 09/12/19 24 10:36 AM EDT documented as of this encounter Care Teams Film Or Videotape Editor Relationship Specialty Start Date End Date Phuong Cortes MD [address] [place] [address] PCP - General Family Medicine 02/04/21 [facility] 09/11/24 documented as of this encounter
--- OUTSIDE RECORDS SUMMARY | 2025-05-15 00:04 | XMS_ITS | Encounter Summary ---
Author Organization [employer] Address [address] [place] [address] Care Team Providers Care Bioprocessing Manufacturing Technician Name Role Phone Phuong Cortes MD Primary Care Provider [phone] Encounter Details Date Type Department Care Team (Late st Contact Info) Description 11/02/[address] [facility] [address] [place] [address] Provider, MD Humberto Social History Tobacco Use [...] 07/10/2025 11:00 AM EST Office Visit [facility] OPTOMET[facility] [address] [place], [place] [phone] TarkaMiranda, OD [address] [place] [address] documented as of this encounter Procedures Procedure [...] (12/15/2023 12:20 AM EDT) Color Urine Yellow [facility] Appearance Urine Clear [facility] PH 6.0 5.0 - 9.0 [facility] Glucose Urine UA Negative Negative mg/dL [facility] Urine Blood Negative Negative [facility] Specific [facility] - Urine 1.025 1.005 - 1.025 [facility] Urine Protein Trace Neg-Trace mg/dL [facility] Urine Ketones Negative Negative mg/dL [facility] Nitrite Urine Negative Negative [facility] Leukocyte Esterase Urine Negative Negative [facility] 12/15/2023 12:2 0 AM EDT 12/15/2023 12:22 AM EDT Narrative [facility] - 12/15/2023 12:28 AM EDT Urine, Clean Catch us Generic External Data Provider LAB URINE ORDERAB LES Final Result Performing Organization Address [facility] Co de Phone Number [facility] [address] [place] [phone] * B Type Natriuretic Peptide (BNP) (12/14/2023 8:33 PM EDT) Pathologist [facility] B Type Natriuretic Peptide 13 <100 pg/mL [facility] Comment:For those patients w ho are being treated with Natrecor(nesiritide, recombinant BNP), BNP testing should beperformed at least two hours post treatment in order toensure that only endogenous levels of BNP are detected. 12/14/2023 8:33 PM EDT 12/14/2023 10:53 PM EDT us Generic External Data Provider LAB BLOOD ORDERAB LES Final Result Performing Organization Address [facility]/ZIP Co de Phone Number [facility] [address] [place] [address] [phone] * Magnesium (12/14/2023 8:33 PM EDT) Pathologist [facility] Magnesium 2.3 1.6 - 2.6 mg/dL [facility] Comment:Lipemic Specimen 12/14/2023 8:33 PM EDT 12/14/2023 8:35 PM EDT us Generic External Data Provider LAB BLOOD ORDERAB LES Final Result [facility] [address] [place] [address] [phone] * (ABNORMAL) Comprehensive Metabolic Panel (12/14/2023 8:33 PM EDT) Sodium 141 135 - 145 mmol/L [facility] Potassium 3.8 3.3 - 5.1 mmol/L [facility] Comment:Slight Hemolysis Chloride 107 96 - 108 mmol/L [facility] Carbon Dioxide 25 22 - 29 mmol/L [facility] Anion Gap 13 12 - 20 [facility] Urea Nitrogen (BUN) 27(H) 9 - 16 mg/dL [facility] Creatinine, Serum 1.56(H) 0.5 - 1.4 mg/dL [facility] Creatinine Clr Calc Pharmacy 41.6 [facility] Comment:eGFR (calculated fro m the MDRD study equation) and eCrCl(calculated from the Cockcroft-Gault equation) are based ondifferent parameters and may not yield comparable results.If eCrCl result is absurd, please check patient'sheight/weight. Estimated Glomerular Filt Rate 44 [facility] Comment:NOTE: For -A merican individuals, multiply the result by 1.210.Chronic Kidney Disease: Estimated GFR < 60 mL/min/[id number] Kidney Disease: Estimated GFR < 15 mL/min/1.73m2 Glucose 135(H) 60 - 115 mg/dL [facility] Calcium 9.3 8.4 - 10.2 mg/dL [facility] Bilirubin, Total 0.3 0.0 - 1.0 mg/dL [facility] Aspartate Amino Transferase 31 5 - 37 U/L [facility] Comment:Slight Hemolysis Alanine Aminotransferase 26 0 - 40 U/L [facility] Total Protein 8.8(H) 6.5 - 8.0 g/dL [facility] Albumin Level 4.3 3.5 - 5.0 g/dL [facility] Alkaline Phosphatase 112 39 - 117 U/L [facility] 12/14/2023 8:33 PM EDT 12/14/2023 8:35 PM EDT us Generic External Data Provider LAB BLOOD ORDERAB LES Final Result [facility] [address] [place], [place] [phone] * (ABNORMAL) CBC auto differential (12/14/2023 8:33 PM EDT) White Blood Count 6.8 4.8 - 10.8 X10*3/uL [facility] Red Blood Count 4.15(L) 4.60 - 5.80 X10*6/uL [facility] Hemoglobin 12.9(L) 14.0 - 18.0 g/dl [facility] Hematocrit 36.6(L) 42.0 - 52.0 % [facility] Mean Corpuscular Volume 88.2 80.0 - 98.0 fL [facility] Mean Corpuscular Hemoglobin 31.1 27.0 - 33.0 pg [facility] Mean Corpuscular HGB Conc 35.2 31.0 - 36.0 g/dl [facility] Red Cell Distribution Width 12.9 11.0 - 16.0 % [facility] Platelet Count 223 160 - 400 X10*3/uL [facility] Mean Platelet Volume 10.2 9.4 - 12.4 fL [facility] Neutrophils Percent Auto 44.6(L) 45 - 73 % [facility] Imm Gran Pct Auto 0.1 0.0 - 0.4 % [facility] Lymphocytes Percent Auto 40.0 20 - 40 % [facility] Monocytes Percent Auto 10.3 2 - 11 % [facility] Eosinophils Percent Auto 4.4(H) 0 - 4 % [facility] Basophils Percent Auto 0.6 0 - 2 % [facility] NRBC Pct Auto 0.0 0.0 - 0.2 /100WBC [facility] Neutrophils Absolute Auto 3.0 2.0 - 8.3 x10*3/uL [facility] Imm Gran Abs Auto 0.01 0.00 - 0.03 X10*3/uL [facility] Lymphocytes Absolute Auto 2.7 1.2 - 4.9 X10*3/uL [facility] Monocytes Absolute Auto 0.7 0.1 - 1.2 X10*3/uL [facility] Eosinophils Absolute Auto 0.3 0.0 - 0.4 X10*3/uL [facility] Basophils Absolute Auto 0.0 0.0 - 0.2 X10*3/uL [facility] NRBC Abs Auto 0.000 0.0 - 0.012 X10*3/uL [facility] 12/14/2023 8:33 PM EDT 12/14/2023 8:35 PM EDT Generic External Data Provider LAB BLOOD ORDERAB LES Final Result Performing Organization Address City/State/[facility] Co de Phone Number [facility] [address] [place] [phone] * Hm Colonoscopy (05/17/2022 2:26 PM EST) Historical Provider HEALTH MAINTENANCE Final Result documented in this encounter Visit Diagnoses Not on filedocumented in this encounter Additional Health Concerns Assessment Noted Time PHQ-9 Depression Total Score: 9 09/12/19 24 10:36 AM EDT documented as of this encounter Care Teams Bioprocessing Manufacturing Technician Relationship Specialty Start Date End Date Phuong Cortes MD [address] [place] [address] PCP - General Family Medicine 02/04/21 [facility] 04/08/[facility] 10/17/24 [facility] 09/11/24 documented as of this encounter
--- OUTSIDE RECORDS SUMMARY | 2025-05-15 00:04 | XMS_ITS | Encounter Summary ---
Author Organization [employer] Address [address]t [place] [address] Care Team Providers Care Vice President Name Role Phone Phuong Cortes MD Primary Care Provider [phone] Encounter Details Date Type Department Care Team (Late Contact Info) Description 09/12/2022 Orders Only [facility] [address] [place] [address] Jillian Oh LPN Social History Tobacco Use [...] EST Office Visit [facility] [address] [place] [address] Miranda Sherwood, OD [address] [place] [address] documented as of this encounter Visit Diagnoses Not on filedocumented in this encounter Care Teams Vice President Relationship Specialty Start Date End Date Phuong Cortes MD [address] [place], [place] [phone] PCP - General Family Medicine 02/04/21 [facility] 04/08/21 10/17/24 [facility] 09/11/24 documented as of this encounter
--- OUTSIDE RECORDS SUMMARY | 2025-05-15 00:04 | XMS_ITS | Patient Health Record ---
Author Organization [facility] Address [address] [place] [phone] Care Team Providers Care Consumer Lending Manager Name Role Phone Erlin Glover Unavailable [phone] Reason For Referral No Information Plan Of Treatment No Information
--- OUTSIDE RECORDS SUMMARY | 2025-05-15 00:04 | XMS_ITS | Encounter Summary ---
Author Organization [employer] Address [address] 7t [place] [address] Care Team Providers Care River Rat Name Role Phone Phuong Cortes MD Primary Care Provider [phone] Reason for Visit * Reason Onset Date Comments FYI 06/20/2024 Encounter Details Date Type Department Care Team ([facility] st Contact Info) Description 06/20/2024 Telephone [facility] [address] [place], [place] [phone] Phuong Cortes MD [address] [place], [place] [phone] FYI Social History Tobacco Use Types Packs/Day [...] Description 07/10/2025 11:00 AM EST Office Visit [facility] OPTOMETRY [address] [place] [address] Miranda Sherwood, OD [address] [place] [address] documented as of this encounter Visit Diagnoses Not on filedocumented in this encounter Additional Health Concerns Assessment Noted Time PHQ-9 Depression Total Score: 9 09/12/19 24 10:36 AM EDT documented as of this encounter Care Teams River Rat Relationship Specialty Start Date End Date Phuong Cortes MD [address] [place] [address] PCP - General Family Medicine 02/04/21 [facility] Care 04/08/21 10/17/24 [facility] 09/11/24 documented as of this encounter
--- OUTSIDE RECORDS SUMMARY | 2025-05-15 00:04 | XMS_ITS | Encounter Summary ---
Author Organization [employer] Address [address]t [place] [address] Care Team Providers Care Primary Health Care Nurse Name Role Phone Phuong Cortes MD Primary Care Provider [phone] Reason for Visit * Reason Comments Med Refill Encounter Details Date Type Department Care Team (Late Contact Info) Description 01/12/2023 Refill [facility] [address] [place], [place] [phone] Yokasta Ledbetter MD [address] [place], [place] [phone] Social History Tobacco Use Types Packs/Day Years [...] Description 07/10/2025 11:00 AM EST Office Visit [facility] OPTOMETRY [address] [place], [place] [phone] Miranda Sherwood, OD [address] [place], [place] [phone] documented as of this encounter Visit Diagnoses Not on filedocumented in this encounter Care Teams Primary Health Care Nurse Relationship Specialty Start Date End Date Phuong Cortes MD [address] [place] [address] PCP - General Family Medicine 02/04/21 [facility] Care 04/08/21 10/17/24 [facility] 09/11/24 documented as of this encounter
--- OUTSIDE RECORDS SUMMARY | 2025-05-15 00:04 | XMS_ITS | Clinical Summary ---
Author Organization [employer] Address [address] [facility] [address] [place] [address] Care Team Providers Care Part Time Flexible Clerk Name Role Phone Phuong Cortes MD Primary Care Provider [phone] Allergies Active Allergy Reactions Criticality Noted Date Comments Morphine Unknown 09/07/2023 Penicillins Unknown 09/07/2023 Sulfa Antibiotics Unknown 08/22/2017 Medications fluticasone (Flovent HFA) 110 MCG/ACT inhalerIndicatio ns:Mild persistent asthma in adult without complication Inhale 2 puffs in the morning and at bedtime. 12 g 11 2 Active Blood Pressure Monitoring (Omron 3 Series BP Monitor) device USE TO CHECK BLOOD PRESSURE DAILY 2 Active clonazePAM (KlonoPIN) 0.5 MG tablet 3 Active diclofenac (Voltaren) 75 MG EC tablet 3 Active oxyCODONE-acetam inophen (Percocet) 5-325 MG tablet 3 Active QUEtiapine (SEROquel) 100 MG tablet 3 Active sertraline (Zoloft) 100 MG tablet 3 Active sertraline (Zoloft) 50 MG tablet 3 Active ceramides (CeraVe) moisturizing cream Apply 1 application topically if needed for dry skin. 400 g 1 3 Active cholecalciferol VITAMIN D (Vitamin D-3) 50 MCG (1999 UT) tabletIndication s:Vitamin D deficiency TAKE 1 TABLET BY MOUTH EVERY DAY IN THE MORNING 90 tablet 3 5 Active fluticasone furoate (Arnuity Ellipta) 200 MCG/ACT inhaler INHALE 1 PUFF BY MOUTH EVERY DAY AT THE SAME TIME RINSE MOUTH AFTER USING 30 each 5 Active fluticasone (Flonase) 50 MCG/ACT nasal sprayIndications :Mild persistent asthma in adult without complication SPRAY 1 SPRAY IN EACH NOSTRIL EVERY TWELVE HOURS 16 g 11 5 Active omeprazole (PriLOSEC) [address] capsule Take 1 capsule by mouth Once per day. 4 Active Spacer/Aero-Hold ing Chambers (OptiChamber Yoselin) misc 1 each every 4 (four) hours if needed (asthma). 1 each 5 Active Diclofenac Sodium 1 % gel Apply 4 g topically if needed in the morning, at noon, in the evening, and at bedtime (pain). 100 g 5 Active melatonin 5 MG tablet TAKE 1 TABLET BY MOUTH EVERY DAY AT BEDTIME 90 tablet 3 5 Active donepezil (Aricept) 10 MG tablet TAKE 1 TABLET BY MOUTH AT BEDTIME 90 tablet 3 5 Active losartan (Cozaar) 100 MG tablet TAKE 1 TABLET BY MOUTH EVERY MORNING 90 tablet 3 5 Active tamsulosin (Flomax) 0.4 MG 24 hr capsule TAKE 1 CAPSULE BY MOUTH EVERY MORNING 30 MINUTES AFTER BREAKFAST. 90 capsule 3 5 Active atorvastatin (Lipitor) 20 MG tablet Take 1 tablet (20 mg) by mouth in the morning. 90 tablet 3 5 Active aspirin (Aspirin Low Dose) 81 MG EC tablet TAKE 1 TABLET BY MOUTH AT BEDTIME 90 tablet 3 5 Active albuterol (2.5 MG/3ML) 0.083% nebulizer solution Take 3 mL (2.5 mg) by nebulization every 4 (four) hours if needed for wheezing. 75 mL 3 5 026 Active Acetaminophen Extra Strength 500 MG tablet TAKE 1 TABLET BY MOUTH EVERY 8 HOURS NEEDED FOR PAIN 40 tablet 3 5 Active cetirizine (ZyrTEC) 10 MG tablet TAKE 1 TABLET BY MOUTH EVERY DAY 90 tablet 3 5 Active rOPINIRole (Requip) 1 MG tablet TAKE 1 TABLET BY MOUTH AT BEDTIME 90 tablet 5 Active tiZANidine (Zanaflex) 2 MG tablet take 1 tablet by mouth twice a day as needed for muscle spasm 5 Active gabapentin (Neurontin) 600 MG tablet Take 1 tablet (600 mg) by mouth at bedtime. 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 03/26/2025 Moderate late onset Alzheimer's dementia 025 Hydradenitis 12/10/2024 Assessment & Plan (12/10/2024 9:39 [...] with other behavioral disturbance, unspecified dementia type ([facility]) 10/22/2021 Assessment & Plan (03/28/2025 12:24 PM EDT): Daughter to initiate [employer] appeal for MOTOR MAN hours with worsening dementia/low vision Increase Artane [...] indication and qualification for Ensure supplement through [employer] and that patient does not qualify (no unexplained weight loss, No malabsorption, no cancer, no protein-calorie deficiency) Trial 15mg Mirtazapine nightly Main intervention though is to remove sweets from his room/kitchen, encourage eating with others/social time Colitis 12/31/2021 03/28/2025 Visual impairment 11/02/2017 10/07/2024 Encounters Date Type Department Care Team Description 04/28/2025 Refill [facility] MEDICINE [address] [place] [address] Phuong Cortes MD 04/13/2025 Refill [facility] MEDICINE [address] [place] [phone] Yokasta Ledbetter MD 04/12/2025 10:00 AM EDT Office Visit [facility] WALK-IN [address] [address] Sara Bennett, STEEL [employer] Fall, initial encounter (Primary Dx) 04/12/2025 Orders Only GENERIC EXTERNAL DATA DEPARTMENT Provider, Generic External Data 04/12/2025 Travel 04/01/[address] [address] Phuong Cortes MD chart prep 03/26/2025 2:00 PM EDT Office Visit [address] [address] Phuong Cortes MD Moderate late onset Alzheimer's [...] type (CMS/HCC) (HCC) 03/26/2025 Travel 03/25/2025 Telephone [facility] MEDICINE [address] [place] [phone] Phuong Cortes MD Chart Prep 03/20/2025 Refill [facility] MEDICINE [address] [place] [phone] [facility] 03/12/2025 Refill [facility] MEDICINE [address] [place] [phone] Phuong Cortes MD 02/28/2025 Telephone [facility] MEDICINE [address] [place] [phone] Phuong Cortes MD Appointment Request from Last 3 Months Immunizations Immunization Administration [...] the past 12 months, has t he [employer] or [employer] threatened to shut off services in your [...] Description 07/10/2025 11:00 AM EST Office Visit [facility] OPTOMETRY [address] [place] [address] Miranda Sherwood, OD [address] [place] [address] Health Maintenance Due Date Last Done Comments CT Colonography 1955 FIT DNA/Cologuard 1955 FIT 1955 FOBT 1955 Sigmoidoscopy 1955 Hepatitis C Screening 1973 RSV Patients and Patients Aged 60 years or older (1 - Risk 50-74 years 1-dose series) 2005 Zoster Vaccines (2 of 3) 06/04/2015 04/09/2015 Colonoscopy 05/17/2023 05/17/2022 Colorectal Cancer Screening 05/17/2023 SDOH Screening 09/11/2024 09/12/2023 COVID-19 Vaccine ( season) 2025 03/29/2024, 07/22/2021, 09/15/2020, Additional history exists Influenza Vaccine (#1) 2025 , 05/13/2022, 03/31/2021, Additional history exists Lipid Panel 08/28/2025 08/28/2020 Alcohol/Substance Use Screening 09/08/2025 09/08/2024 Tobacco Screening 03/26/2026 03/26/2025 Depression Screening 03/28/2026 03/28/2025, 03/28/20 25 DTaP/Tdap/Td Vaccines (3 - Td or Tdap) [...] Procedure Name Priority Date/Time Associated Diagnosis Comments XR HAND 3+ VIEWS RIGHT Routine 3:20 PM EDT XR WRIST 3+ VIEWS RIGHT Routine 04/12/2025 3:03 PM EDT XR KNEE 4+ VIEWS LEFT Routine 04/12/2025 2:[address] CERVICAL SPINE WO CONTRAST Routine 04/12/2025 1:[address] HEAD WO CONTRAST Routine 04/12/2025 1 :28 PM EDT HIGH SENSITIVITY TROPONIN I Routine 04/12/2025 11:45 AM EDT CREATINE KINASE, TOTAL Routine 11:45 AM EDT MAGNESIUM Routine 04/12/2025 11:45 AM EDT COMPREHENSIVE METABOLIC PANEL Routine 04/12/2025 11:45 AM EDT CBC WITH AUTO DIFFERENTIAL Routine 04/12/2025 11:45 AM EDT HM COLONOSCOPY Routine 05/17/2022 2:26 PM EST LIPID PANEL, STANDARD Routine 08/28/2020 4:08 PM EST from Last 3 Months or Most Recently Relevant to Health Maintenance Results * XR Hand 3+ Views Right (04/12/2025 3:20 PM EDT) Anatomical Region Laterality Modality Upper Extremities, Hand Right Radiogra phic Imaging 04/12/2025 3:20 PM EDT Narrative 04/12/2025 3:22 PM EDT [address] [address] XRay Report Signed Patient: Eddie Person MR#: [id number] : 1955 Acct:[id number] Age/Sex: 70 / M ADM Date: 04/12/25 Loc: HO.ED Attending Dr: Ordering Physician: Santa Diaz Date of Service: 04/12/25 Procedure(s): XR hand RT min 3V Accession Number(s): [id number] cc: Phuong Cortes; Santa Diaz Reason for Exam: fall bruising CLINICAL HISTORY: fall bruising 3 view right hand Comparison: None provided Findings: Bones intact. No dislocations. Mild arthritic change. No erosions. No radiopaque foreign body. IMPRESSION: No acute bony abnormality. This document has been electronically signed by: Anitha Craig MD on 04/12/2025 15:20:58 Dictated By: Anitha Craig MD Signed By: <Electronically signed by Anitha Craig MD in OV> 04/12/25 1522 DD/ 1520 TD/TT: 04/12/25 1520 Food Production Worker: Procedure Note Donotuseinterpreter, Image - 04/12/[address] [address] XRay Report Signed Patient: Iliana Person#: [id number] : 5Acct:[id number] Age/Sex: 70 / MADM Date: 04/12/25 Loc: .ED Attending Dr: Ordering Physician: Santa Diaz Date of Service: 04/12/25 Procedure(s): XR hand RT min 3V Accession Number(s): [id number] cc: Phuong Cortes; Santa Diaz Reason for Exam: fall bruising CLINICAL HISTORY: fall bruising 3 view right hand Comparison: None provided Findings: Bones intact. No dislocations. Mild arthritic change. No erosions. No radiopaque foreign body. IMPRESSION: No acute bony abnormality. This document has been electronically signed by: Anitha Craig MD on 04/12/2025 15:20:58 Dictated By: Anitha Craig MD Signed By: <Electronically signed by Anitha Craig MD in OV> 04/12/25 1522 DD/ 1520 TD/TT: 04/12/25 1520 Food Production Worker: [facility] External Provider IMG XR PROCEDURES Edited Result - Final * XR Wrist 3+ Views Right (04/12/2025 3:03 PM EDT) Anatomical Region Laterality Modality Upper Extremities, Wrist Right Radiogr aphic Imaging 04/12/2025 3:03 PM EDT Narrative 04/12/2025 3:04 PM EDT [address] [address] XRay Report Signed Patient: Eddie Person MR#: [id number] 3692 : 1955 Acct:[id number] Age/Sex: 70 / M ADM Date: 04/12/25 Loc: HO.ED Attending Dr: Ordering Physician: Santa Diaz Date of Service: 04/12/25 Procedure(s): XR wrist RT min 3V Accession Number(s): [id number] cc: Phuong Cortes; Santa Diaz Reason for Exam: fall bruising CLINICAL HISTORY: fall bruising 4 view right wrist Comparison: None provided Findings: Bones intact. No dislocations. No significant arthritic change or erosions. No radiopaque foreign body. IMPRESSION: 1. No acute findings This document has been electronically signed by: Anitha Craig MD on 04/12/2025 15:03:43 Dictated By: Anitha Craig MD Signed By: <Electronically signed by Anitha Craig MD in OV> 04/12/25 1504 DD/ 1503 TD/TT: 04/12/25 1503 Food Production Worker: Procedure Note Donotuseinterpreter, Image - 04/12/[address] [address] XRay Report Signed Patient: Juvenal PersonR#: [id number] : 5Acct:[id number] Age/Sex: 70 / MADM Date: 04/12/25 Loc: HO.ED Attending Dr: Ordering Physician: Santa Diaz Date of Service: 04/12/25 Procedure(s): XR wrist RT min 3V Accession Number(s): [id number] cc: Phuong Cortes; Santa Diaz Reason for Exam: fall bruising CLINICAL HISTORY: fall bruising 4 view right wrist Comparison: None provided Findings: Bones intact. No dislocations. No significant arthritic change or erosions. No radiopaque foreign body. IMPRESSION: 1. No acute findings This document has been electronically signed by: Anitha Craig MD on 04/12/2025 15:03:43 Dictated By: Anitha Craig MD Signed By: <Electronically signed by Anitha Craig MD in OV> 04/12/25 1504 DD/ 1503 TD/TT: 04/12/25 1503 Food Production Worker: [facility] External Provider IMG XR PROCEDURES Edited Result - Final * XR Knee 4+ Views Left (04/12/2025 2:25 PM EDT) Anatomical Region Laterality Modality Lower Extremities, Knee Left Radiogra phic Imaging 04/12/2025 2:25 PM EDT Narrative 04/12/2025 2:26 PM EDT [place] [address] XRay Report Signed Patient: Eddie Person MR#: [id number] 3692 : 1955 Acct:[id number] Age/Sex: 70 / M ADM Date: 04/12/25 Loc: .ED Attending Dr: Ordering Physician: Santa Diaz Date of Service: 04/12/25 Procedure(s): XR knee LT 4V Accession Number(s): [id number] cc: Phuong Cortes; Santa Diaz Reason for Exam: fall CLINICAL HISTORY: fall 4 view left knee Comparison: None provided Findings: Bones intact. No dislocations. Very mild arthritic change. A patellar enthesophyte is incidentally noted. No joint effusion. No radiopaque foreign body. IMPRESSION: 1. No acute findings. This document has been electronically signed by: Anitha Craig MD on 04/12/2025 14:25:35 Dictated By: Anitha Craig MD Signed By: <Electronically signed by Anitha Craig MD in OV> 04/12/251425 DD/ 24 TD/TT: 04/12/251424 Food Production Worker: Procedure Note Donotuseinterpreter, Image - 04/12/[address] [address] XRay Report Signed Patient: Iliana Person#: [id number] : 5Acct:[id number] Age/Sex: 70 / MADM Date: 04/12/25 Loc: HO.ED Attending Dr: Ordering Physician: Santa Diaz Date of Service: 04/12/25 Procedure(s): XR knee LT 4V Accession Number(s): [id number] cc: Phuong Cortes; Santa Diaz Reason for Exam: fall CLINICAL HISTORY: fall 4 view left knee Comparison: None provided Findings: Bones intact. No dislocations. Very mild arthritic change. A patellar enthesophyte is incidentally noted. No joint effusion. No radiopaque foreign body. IMPRESSION: 1. No acute findings. This document has been electronically signed by: Anitha Craig MD on 04/12/2025 14:25:35 Dictated By: Anitha Craig MD Signed By: <Electronically signed by Anitha Craig MD in OV> 04/12/251425 DD/ 24 TD/TT: 04/12/251424 Food Production Worker: us [facility] External Provider IMG XR PROCEDURES Edited Result - Final * CT Cervical Spine w/o Contrast (04/12/2025 1:31 PM EDT) Anatomical Region Laterality Modality Spine, C-spine Computed Tomogra phy 04/12/2025 1:31 PM EDT Narrative 04/12/2025 1:32 PM EDT [address] [address] [address] Scan Report Signed Patient: Eddie Person MR#: [id number] 3692 : 1955 Acct:[id number] Age/Sex: 70 / M ADM Date: 04/12/25 Loc: HO.ED Attending Dr: Ordering Physician: Santa Diaz Date of Service: 04/12/25 Procedure(s): CT cervical spine wo IV con Accession Number(s): [id number] cc: Phuong Cortes; Santa Diaz Report Number: [id number]: Total DLP = 492.24 mGy-cm Reason for Exam: fall with head strike CLINICAL HISTORY: fall with head strike CT cervical spine without contrast Comparison: None provided Findings: Normal vertebral body alignment. There is heterogeneity of bone density with areas of relative lucency. There is coarsening of trabecular markings. Multilevel degenerative disc disease and facet osteoarthritis. No central canal stenosis. No acute fractures or dislocations. Visualized intracranial contents are unremarkable. No cervical fluid collections or masses. No consolidation or effusion at the lung apices. IMPRESSION: 1. No acute cervical spine fracture. 2. Bone heterogeneity with apparent coarsening of trabecular markings may be related to Paget's disease. Malignancy not completely excluded. This could be further evaluated with bone scan. This document has been electronically signed by: Anitha Craig MD on 04/12/2025 13:31:01 Dictated By: Anitha Craig MD Signed By: <Electronically signed by Anitha Craig MD in OV> 04/12/25 1332 DD/ 1331 TD/TT: 04/12/25 1331 Food Production Worker: Procedure Note Donotuseinterpreter, Image - 04/12/[address] [address] [address] Scan Report Signed Patient: Juvenal PersonR#: [id number] : 5Acct:[id number] Age/Sex: 70 / MADM Date: 04/12/25 Loc: HO.ED Attending Dr: Ordering Physician: Santa Diaz Date of Service: 04/12/25 Procedure(s): CT cervical spine wo IV con Accession Number(s): [id number] cc: Phuong Cortes; Santa Diaz Report Number: [id number]: Total DLP = 492.24 mGy-cm Reason for Exam: fall with head strike CLINICAL HISTORY: fall with head strike CT cervical spine without contrast Comparison: None provided Findings: Normal vertebral body alignment. There is heterogeneity of bone density with areas of relative lucency. There is coarsening of trabecular markings. Multilevel degenerative disc disease and facet osteoarthritis. No central canal stenosis. No acute fractures or dislocations. Visualized intracranial contents are unremarkable. No cervical fluid collections or masses. No consolidation or effusion at the lung apices. IMPRESSION: 1. No acute cervical spine fracture. 2. Bone heterogeneity with apparent coarsening of trabecular markings may be related to Paget's disease. Malignancy not completely excluded. This could be further evaluated with bone scan. This document has been electronically signed by: Anitha Craig MD on 04/12/2025 13:31:01 Dictated By: Anitha Craig MD Signed By: <Electronically signed by Anitha Craig MD in OV> 04/12/25 1332 DD/ 1331 TD/TT: 04/12/25 1331 Food Production Worker: [facility] External Provider IMG CT PROCEDURES Edited Result - Final * CT Head w/o Contrast (04/12/2025 1:28 PM EDT) Anatomical Region Laterality Modality Head, Neck Computed Tomogra phy 04/12/2025 1:28 PM EDT Narrative 04/12/2025 1:29 PM EDT [place] [address] CT Scan Report Signed Patient: Eddie Person MR#: [id number] 3692 : 1955 Acct:[id number] Age/Sex: 70 / M ADM Date: 04/12/25 Loc: HO.ED Attending Dr: Ordering Physician: Santa Diaz Date of Service: 04/12/25 Procedure(s): CT head/brain wo IV con Accession Number(s): [id number] cc: Phuong Cortes; Santa Diaz Report Number: [id number]: Total DLP = 680.69 mGy-cm Reason for Exam: fall with head strike CLINICAL HISTORY: fall with head strike CT head without contrast Comparison: None provided Findings: No intra-axial mass, midline shift, hydrocephalus, or acute hemorrhage. Involutional change brain parenchyma, compatible with age. Mild white matter disease. There is no sinus or mastoid fluid. The orbits are unremarkable. No skull fracture. IMPRESSION: No skull fracture or intracranial hemorrhage. This document has been electronically signed by: Anitha Craig MD on 04/12/2025 13:28:22 Dictated By: Anitha Craig MD Signed By: <Electronically signed by Anitha Craig MD in OV> 04/12/25 1329 DD/ 1328 TD/TT: 04/12/25 132 Food Production Worker: Procedure Note Donotuseinterpreter, Image - 04/12/[address] [place] [address] [address] Scan Report Signed Patient: Iliana Person#: [id number] : 5Acct:[id number] Age/Sex: 70 / MADM Date: 04/12/25 Loc: .ED Attending Dr: Ordering Physician: Santa Diaz Date of Service: 04/12/25 Procedure(s): CT head/brain wo IV con Accession Number(s): [id number] cc: Phuong Cortes; Santa Diaz Report Number: [id number]: Total DLP = 680.69 mGy-cm Reason for Exam: fall with head strike CLINICAL HISTORY: fall with head strike CT head without contrast Comparison: None provided Findings: No intra-axial mass, midline shift, hydrocephalus, or acute hemorrhage. Involutional change brain parenchyma, compatible with age. Mild white matter disease. There is no sinus or mastoid fluid. The orbits are unremarkable. No skull fracture. IMPRESSION: No skull fracture or intracranial hemorrhage. This document has been electronically signed by: Anitha Craig MD on 04/12/2025 13:28:22 Dictated By: Anitha Craig MD Signed By: <Electronically signed by Anitha Craig MD in OV> 04/12/25 1329 DD/ 1328 TD/TT: 04/12/251327 Food Production Worker: [facility] External Provider IMG CT PROCEDURES Edited Result - Final * High Sensitivity Troponin I (04/12/2025 11:45 AM EDT) Pathologist [facility] TROPONIN I HIGH SENSITIVITY 5.2 <3.5 - 35.0 ng/L [facility] Comment:The Dobson high sens itivity Troponin-I results should beused in conjunction with other diagnostic information suchas ECG, clinical observations and information, and patientsymptoms to aid in the diagnosis of [place]. 04/12/2025 11:4 5 AM EDT 04/12/2025 11:46 AM EDT Generic External Data Provider LAB BLOOD ORDERAB LES Final Result [facility] [address] [place] [phone] * (ABNORMAL) CBC auto differential (04/12/2025 11:45 AM EDT) [facility] White Blood Count 5.6 4.8 - 10.8 X10*3/uL [facility] Red Blood Count 3.62(L) 4.60 - 5.80 X10*6/uL [facility] Hemoglobin 10.4(L) 14.0 - 18.0 g/dl [facility] Hematocrit 32.0(L) 42.0 - 52.0 % [facility] Mean Corpuscular Volume 88.4 80.0 - 98.0 fL [facility] Mean Corpuscular Hemoglobin 28.7 27.0 - 33.0 pg [facility] Mean Corpuscular HGB Conc 32.5 31.0 - 36.0 g/dl [facility] Red Cell Distribution Width 14.6 11.0 - 16.0 % [facility] Platelet Count 142(L) 160 - 400 X10*3/uL [facility] Mean Platelet Volume 10.7 9.4 - 12.4 fL [facility] Neutrophils Percent Auto 60.4 45 - 73 % [facility] Imm Gran Pct Auto 0.5(H) 0.0 - 0.4 % [facility] Lymphocytes Percent Auto 25.9 20 - 40 % [facility] Monocytes Percent Auto 8.9 2 - 11 % [facility] Eosinophils Percent Auto 4.1(H) 0 - 4 % [facility] Basophils Percent Auto 0.2 0 - 2 % [facility] NRBC Pct Auto 0.0 0.0 - 0.2 /100WBC [facility] Neutrophils Absolute Auto 3.4 2.0 - 8.3 x10*3/uL [facility] Imm Gran Abs Auto 0.03 0.00 - 0.03 X10*3/uL [facility] Lymphocytes Absolute Auto 1.5 1.2 - 4.9 X10*3/uL [facility] Monocytes Absolute Auto 0.5 0.1 - 1.2 X10*3/uL [facility] Eosinophils Absolute Auto 0.2 0.0 - 0.4 X10*3/uL [facility] Basophils Absolute Auto 0.0 0.0 - 0.2 X10*3/uL [facility] NRBC Abs Auto 0.000 0.0 - 0.012 X10*3/uL [facility] 04/12/2025 11:4 5 AM EDT 04/12/2025 11:46 AM EDT us Generic External Data Provider LAB BLOOD ORDERAB LES Final Result [facility] [address] [place] [phone] * Magnesium (04/12/2025 11:45 AM EDT) Magnesium 2.0 1.6 - 2.6 mg/dL [facility] 04/12/2025 11:4 5 AM EDT 04/12/2025 11:46 AM EDT Generic External Data Provider LAB BLOOD ORDERAB LES Final Result Performing Organization Address [facility] de Phone Number [facility] [address] [place] [phone] * (ABNORMAL) Creatine Kinase, Total (04/12/2025 11:45 AM EDT) Creatine Kinase Total 306(H) 38 - 174 U/L [facility] 04/12/2025 11:4 5 AM EDT 04/12/2025 11:46 AM EDT [employer] External Data Provider LAB BLOOD ORDERAB LES Final Result Performing Organization Address [facility] de Phone Number [facility] [address] [place] [phone] * (ABNORMAL) Comprehensive Metabolic Panel (04/12/2025 11:45 AM EDT) [facility] Sodium 141 135 - 145 mmol/L [facility] Potassium 4.2 3.3 - 5.1 mmol/L [facility] Chloride 108 96 - 108 mmol/L [facility] Carbon Dioxide 28 22 - 29 mmol/L [facility] Anion Gap 9(L) 12 - 20 [facility] Urea Nitrogen (BUN) 15 9 - 16 mg/dL [facility] Creatinine, Serum 1.04 0.5 - 1.4 mg/dL [facility] Creatinine Clr Calc Pharmacy 62.5 [facility] Comment:eGFR (calculated fro m the MDRD study equation) and eCrCl(calculated from the Cockcroft-Gault equation) are based ondifferent parameters and may not yield comparable results.If eCrCl result is absurd, please check patient'sheight/weight. Estimated Glomerular Filt Rate >60 [facility] Comment:Chronic Kidney Disea se: Estimated GFR < 60 mL/min/1.03x2Irqase Kidney Disease: Estimated GFR < 15 mL/min/1.73m2 Glucose 104 60 - 115 mg/dL [facility] Calcium 8.4 8.4 - 10.2 mg/dL [facility] Bilirubin, Total 0.2 0.0 - 1.0 mg/dL [facility] Aspartate Amino Transferase 27 5 - 37 U/L [facility] Alanine Aminotransferase 26 0 - 40 U/L [facility] Total Protein 6.6 6.5 - 8.0 g/dL [facility] Albumin Level 3.9 3.5 - 5.0 g/dL [facility] Alkaline Phosphatase 87 39 - 117 U/L [facility] 04/12/2025 11:4 5 AM EDT 04/12/2025 11:46 AM EDT us Generic External Data Provider LAB BLOOD ORDERAB LES Final Result [facility] [address] [place] [phone] * Hm Colonoscopy (05/17/2022 2:26 PM EST) Historical Provider HEALTH MAINTENANCE Final Result * (ABNORMAL) LIPID PANEL, STANDARD (08/28/2020 4:08 PM EST) Chol/HDLC Ratio 3.6 <5.0 (calc) [facility] Cholesterol, Total 153 <200 mg/dL [facility] HDL Cholesterol 42 > OR = 40 mg/dL [facility] LDL Cholesterol 75 mg/dL (calc) [facility] Comment: Reference range: <100 Desirable range <100 mg/dL for primary prevention; <70 mg/dL for patients with CHD or diabetic patients with > or = 2 CHD risk factors. LDL-C is now calculated using the Jeet calculation, which is a validated novel method providing better accuracy than the Friedewald equation in the estimation of LDL-C. Hiram COSTELLO et al. LATESHA. 2013;310(19): 4848-2986 (http://education.Fluid Stone.Jammin Java/faq/STI402) Non-HDL Cholesterol 111 <130 mg/dL (calc) [facility] Comment: For patients with diabetes plus 1 major ASCVD risk factor, treating to a non-HDL-C goal of <100 mg/dL (LDL-C of <70 mg/dL) is considered a therapeutic option. Triglycerides 270(H) <150 mg/dL [facility] Comment: If a non-fasting specimen was collected, consider repeat triglyceride testing on a fasting specimen if clinically indicated. Shruthi et al. J. of Clin. Lipidol. 2015;9:129-169. 08/28/2020 4:08 PM EST us Phuong Cortes MD LAB BLOOD ORDERABLES Final Res ult [facility] [address] from Last 3 Months or Most Recently Relevant to Health Maintenance Insurance [facility] CARE HOME OPTIONS (O D-SNP) SUKH SAUNDERS [id number] Care Teams Part Time Flexible Clerk Relationship Specialty Start Date End Date Phuong Cortes MD [address] [place] [address] PCP - General Family Medicine 02/04/21 [employer] [facility] 09/11/24
--- OUTSIDE RECORDS SUMMARY | 2025-05-15 00:04 | XMS_ITS | Encounter Summary ---
Author Organization [employer] Address [address] [facility] 7t [place] [address] Care Team Providers Care Condominium Manager Name Role Phone Phuong Cortes MD Primary Care Provider [phone] Reason for Visit * Reason Onset Date Comments Appointment Request 10/19/2022 Encounter Details Date Type Department Care Team ([facility] st Contact Info) Description 10/19/2022 Telephone [facility] MEDICINE [address] [place], [place] [phone] Phuong Cortes MD [address] [place], [place] [phone] Appointment Request Social History Tobacco Use Types [...] 10/19/2022 for F/u. Please contact daughter at [phone] documented in this encounter Plan of Treatment Upcoming Encounters Date Type Department Care Team (Late st Contact Info) Description 07/10/2025 11:00 AM EST Office Visit [facility] OPTOMETRY [address] [place], [place] [phone] Miranda Sherwood, OD [address] [place] [address] documented as of this encounter Visit Diagnoses Not on filedocumented in this encounter Care Teams Condominium Manager Relationship Specialty Start Date End Date Phuong Cortes MD [address] [place] [address] PCP - General Family Medicine 02/04/21 [facility] 04/08/21 10/17/24 [facility] 09/11/24 documented as of this encounter
--- OUTSIDE RECORDS SUMMARY | 2025-05-15 00:04 | XMS_ITS | Encounter Summary ---
Author Organization [employer] Address [address] [facility] 7t [place] [address] Care Team Providers Care Creche Attendant Name Role Phone Phuong Cortes MD Primary Care Provider [phone] Reason for Visit * Reason Onset Date Comments Med Refill Referral 02/10/2023 Encounter Details Date Type Department Care Team (Late st Contact Info) Description 02/10/2023 Refill [facility] MEDICINE 230 [place], [place] [phone] Phuong Cortes MD [address] [place], [place] [phone] Social History Tobacco Use Types Packs/Day Years [...] has nothing in his home. Contact number [phone] documented in this encounter Plan of Treatment Upcoming Encounters Date Type Department Care Team (Late st Contact Info) Description 07/10/2025 11:00 AM EST Office Visit [facility] [address] [place] [address] Presley Miranda, OD [address] [place] [address] documented as of this encounter Visit Diagnoses Not on filedocumented in this encounter Care Teams Creche Attendant Relationship Specialty Start Date End Date Phuong Cortes MD 230 [place] [address] PCP - General Family Medicine 02/04/21 [facility] 04/08/21 10/17/24 [facility] 09/11/24 documented as of this encounter
--- OUTSIDE RECORDS SUMMARY | 2025-05-15 00:04 | XMS_ITS | Encounter Summary ---
Author Organization [employer] Address [address] [facility] [address] 7[address] [place] [address] Care Team Providers Care Preload Supervisor Name Role Phone Phuong Cortes MD Primary Care Provider [phone] Reason for Visit * Reason Onset Date Comments Med Refill 12/09/2024 Encounter Details Date Type Department Care Team (Late st Contact Info) Description 12/09/2024 Refill [facility] MEDICINE 230 [place], [place] [phone] Phuong Cortes MD [address] [place], [place] [phone] Social History Tobacco Use Types Packs/Day Years [...] Description 07/10/2025 11:00 AM EST Office Visit [facility] OPTOMETRY [address] [place] [address] Miranda Sherwood, OD [address] [place] [address] documented as of this encounter Visit Diagnoses Not on filedocumented in this encounter Additional Health Concerns Assessment Noted Time PHQ-9 Depression Total Score: 9 09/12/19 24 10:36 AM EDT documented as of this encounter Care Teams Preload Supervisor Relationship Specialty Start Date End Date Phuong Cortes MD [address] [place] [address] PCP - General Family Medicine 02/04/21 [facility] 09/11/24 documented as of this encounter
--- OUTSIDE RECORDS SUMMARY | 2025-05-15 00:04 | XMS_ITS | Encounter Summary ---
Author Organization [employer] Address [address] [facility] 7t [place] [address] Care Team Providers Care Mold Dresser Name Role Phone Phuong Cortes MD Primary Care Provider [phone] Reason for Visit * Reason Onset Date Comments Durable Medical Equipment 10/17/2022 Encounter Details Date Type Department Care Team (Late st Contact Info) Description 10/17/2022 Telephone [facility] MEDICINE [address] [place], [place] [phone] Phuong Cortes MD [address] [place], [place] [phone] Durable Medical Equipment Social History Tobacco Use [...] If any questions please contact Daughter at [phone] documented in this encounter Plan of Treatment Upcoming Encounters Date Type Department Care Team (Late st Contact Info) Description 07/10/2025 11:00 AM EST Office Visit [facility] OPTOMETRY [address] [place], [place] [phone] Miranda Sherwood, OD [address] [place] [address] documented as of this encounter Visit Diagnoses Not on filedocumented in this encounter Care Teams Mold Dresser Relationship Specialty Start Date End Date Phuong Cortes MD [address] [place] [address] PCP - General Family Medicine 02/04/21 [facility] 04/08/21 10/17/24 [facility] 09/11/24 documented as of this encounter
--- OUTSIDE RECORDS SUMMARY | 2025-05-15 00:04 | XMS_ITS | Encounter Summary ---
Author Organization [employer] Address [address] [facility] 7t [place] [address] Care Team Providers Care Home Aide Name Role Phone Phuong Cortes MD Primary Care Provider [phone] Reason for Visit * Reason Onset Date Comments Nurse Triage 08/19/2024 Encounter Details Date Type Department Care Team (Late st Contact Info) Description 08/19/2024 Telephone [facility] MEDICINE 230 [place], [place] [phone] Phuong Cortes MD [address] [place], [place] [phone] Nurse Triage Social History Tobacco Use Types [...] 08/19/2024 9:38 AM EST Triage call with [facility] diplomatic interpreter/translator ID [id number]. Pt reports cough for a week now. [...] honey. Pt is advised to come to [facility] today to be seen by provider and [...] caller accepted this outcome. Contact pt at [phone](Faroese) documented in this encounter Plan of Treatment Upcoming Encounters Date Type Department Care Team (Late st Contact Info) Description 07/10/2025 11:00 AM EST Office Visit [facility] OPTOMETRY [address] [place] [address] Miranda Sherwood, OD [address] [place] [address] documented as of this encounter Visit Diagnoses Not on filedocumented in this encounter Additional Health Concerns Assessment Noted Time PHQ-9 Depression Total Score: 9 09/12/19 24 10:36 AM EDT documented as of this encounter Care Teams Home Aide Relationship Specialty Start Date End Date Phuong Cortes MD [address] [place] [address] PCP - General Family Medicine 02/04/21 [facility] 04/08/21 10/17/24 [employer] [facility] 09/11/24 documented as of this encounter
--- OUTSIDE RECORDS SUMMARY | 2025-05-15 00:04 | XMS_ITS | Encounter Summary ---
Author Organization [employer] Address [address] [facility] [address] [place] [address] Care Team Providers Care Loading Manager Name Role Phone Phuong Cortes MD Primary Care Provider [phone] Encounter Details Date Type Department Care Team (Late st Contact Info) Description 08/02/2024 Orders Only [facility] MEDICINE 230 [place], [place] [phone] Phuong Cortes MD 230 [place], [place] [phone] Social History Tobacco Use Types Packs/Day Years [...] Upcoming Encounters Date Type Department Care Team ([facility] st Contact Info) Description 07/10/2025 11:00 AM EST Office Visit [facility] OPTOMETRY [address] [place] [address] Miranda Sherwood, OD [address] [place] [address] documented as of this encounter Visit Diagnoses Not on filedocumented in this encounter Additional Health Concerns Assessment Noted Time PHQ-9 Depression Total Score: 9 09/12/19 24 10:36 AM EDT documented as of this encounter Care Teams Loading Manager Relationship Specialty Start Date End Date Phuong Cortes MD [address] [place] [address] PCP - General Family Medicine 02/04/21 [facility] 04/08/21 10/17/24 [facility] 09/11/24 documented as of this encounter
--- OUTSIDE RECORDS SUMMARY | 2025-05-15 00:04 | XMS_ITS | Encounter Summary ---
Author Organization [employer] Address [address] [facility] [address] [place] [address] Care Team Providers Care Research Greenhouse Supervisor Name Role Phone Phuong Cortes MD Primary Care Provider [phone] Reason for Visit * Reason Comments Med Refill Encounter Details Date Type Department Care Team (Late st Contact Info) Description 09/27/2023 Refill [facility] MED & PEDS [address] [place], [place] [phone] Phuong Cortes MD 230 [place] [address] Social History Tobacco Use Types Packs/Day Years [...] Description 07/10/2025 11:00 AM EST Office Visit [facility] OPTOMETRY [address] [place] [address] Miranda Sherwood, OD [address] [place] [address] documented as of this encounter Visit Diagnoses Not on filedocumented in this encounter Additional Health Concerns Assessment Noted Time PHQ-9 Depression Total Score: 9 09/12/19 24 10:36 AM EDT documented as of this encounter Care Teams Research Greenhouse Supervisor Relationship Specialty Start Date End Date Phuong Cortes MD [address] [place] [address] PCP - General Family Medicine 02/04/21 [facility] 04/08/21 10/17/24 [employer] [facility] 09/11/24 documented as of this encounter
--- OUTSIDE RECORDS SUMMARY | 2025-05-15 00:05 | XMS_ITS | Encounter Summary ---
Author Organization [employer] Address [address] [facility] 7t [place] [address] Care Team Providers Care Life Science Technical Officer Name Role Phone Phuong Cortes MD Primary Care Provider Reason for Visit * Reason Onset Date Comments Med Refill 12/26/2023 Encounter Details Date Type Department Care Team (Late st Contact Info) Description 12/26/2023 Telephone [facility] MEDICINE [address] [place], [place] [phone] Phuong Corets MD 230 [place], [place] [phone] Med Refill Social History Tobacco Use Types [...] MG EC tablet To be sent to: [facility] - [place], [place] - [address] [facility] documented in this encounter Plan of Treatment Upcoming Encounters Date Type Department Care Team ([facility] st Contact Info) Description 07/10/2025 11:00 AM EST Office Visit [facility] OPTOMETRY [address] [place] [address] Miranda Sherwood, OD [address] [place] [address] documented as of this encounter Visit Diagnoses Not on filedocumented in this encounter Additional Health Concerns Assessment Noted Time PHQ-9 Depression Total Score: 9 09/12/19 24 10:36 AM EDT documented as of this encounter Care Teams Life Science Technical Officer Relationship Specialty Start Date End Date Phuong Cortes MD [address] [facility] [address] PCP - General Family Medicine 02/04/21 [facility] 04/08/21 10/17/24 [employer] [facility] 09/11/24 documented as of this encounter
--- OUTSIDE RECORDS SUMMARY | 2025-05-15 00:05 | XMS_ITS | Encounter Summary ---
Author Organization [employer] Address [address] [facility] [address] 7[address] [place] [address] Care Team Providers Care Straight Tooth Gear Generator Operator Name Role Phone Phuong Cortes MD Primary Care Provider [phone] Reason for Visit * Reason Comments Med Refill Encounter Details Date Type Department Care Team (Late st Contact Info) Description 04/28/2025 Refill [facility] MEDICINE 230 [place], [place] [phone] Phuong Cortes MD 230 [place], [place] [phone] Social History Tobacco Use Types Packs/Day Years [...] Description 07/10/2025 11:00 AM EST Office Visit [facility] OPTOMETRY [address] [place] [address] Miranda Sherwood, OD [address] [place] [address] documented as of this encounter Visit Diagnoses Not on filedocumented in this encounter Additional Health Concerns Assessment Noted Time PHQ-9 Depression Total Score: 5 03/28/20 25 12:20 PM EDT documented as of this encounter Care Teams Straight Tooth Gear Generator Operator Relationship Specialty Start Date End Date Phuong Cortes MD [address] [place] [address] PCP - General Family Medicine 02/04/21 [facility] 09/11/24 documented as of this encounter
--- OUTSIDE RECORDS SUMMARY | 2025-05-15 00:05 | XMS_ITS | Data Portability ---
Author Organization [place] [employer] [facility], [facility] Address [address] [place] [id number] Care Team Providers Care Business Intelligence Consultant Name Role Phone Unavailable Referring Provider [phone] HIM CCA OTHER Assessment Encounter Date Assessment Date Assessment LastModified by Organization Details LastModified Time 01/06/2022 01/06/2022 I have reviewed and agree with the Assessment and Plan as documented by the Senior System Operator. I provided real -time medical direction via phone for this encounter, and was available for additional phone based assistance as needed. Patient/ family given the opportunity to ask questions. [email or web address] Not available 01/06/2022 15:25:06 01/08/2022 01/08/2022 I have reviewed and agree with the Assessment and Plan as documented by the Senior System Operator. I provided real -time medical direction via phone for this encounter, and was available for additional phone based assistance as needed. Patient/ familygiven the opportunity to ask questions. [email or web address] Not available 01/08/2022 12:04:45 Plan of Treatment Reminders Order Date Submit Date Provider Last Modified By Organization Details Last Modified Time Details Appointments None recorded. Lab rapid SARS CoV 2 Ag, QL [place], respiratory specimen 2024 025 [facility], [address] [place] [address], [id number] 5 17:18:01 rapid flu (A+B) 2024 [address] [facility] [address], [address] 17:18:00 cmp, whole blood + pietro 2021 022 [email or web address] [address], [address] 12:03:59 cmp, whole blood + pietro 2021 022 [email or web address] 0 [facility], [address] [place] [address], [phone] 17:09:53 Referral None recorded. Procedures IV insertion (PROC) 2021 022 [email or web address] 0 Not available 15:24:30 Surgeries None recorded. Imaging electrocard iogram 2024 025 [facility], [address] [place] [address], [id number] 5 17:18:02 Medication Orders ipratropium 0.5 mg-albutero l 3 mg (2.5 mg base)/3 mL nebulizatio n soln 2024 025 [facility], [address] [place] [address], [id number], 17:17:58 prednisone 20 mg tablet 2024 025 [facility], [address] [place] [address], [id number], 5 17:17:58 benzonatate 100 mg capsule 2024 025 [facility], [address] [place] [address], [id number], 5 17:17:58 doxycycline hyclate 100 mg tablet 2024 025 [facility], [address] [place] [address], [id number], 5 17:17:58 prednisone 20 mg tablet 2024 025 [id number], [address] [place], [address], 17:17:58 doxycycline hyclate 100 mg tablet [facility]24 [id number] [address] [place], [id number], 5 17:17:58 benzonatate 100 mg capsule 2024 025 [id number] [address] [place], [address], 5 17:17:58 Tylenol Extra Strength 500 mg tablet 2021 022 [email or web address] 0 [facility], [address] [place] [address], [id number], 2 12:03:59 sodium chloride 0.9 % intravenous solution 2021 022 [email or web address] 0 Not available 15:24:30 ondansetron HCl (PF) 4 mg/2 mL injection syringe 2021 022 [email or web address] 0 Not available 15:24:30 metronidazo le 500 mg tablet 2021 022 [facility], [address] [place] [address], [id number], 2 17:11:21 levofloxaci n 500 mg tablet 2021 022 [facility], [address] [place] [address], [id number], 2 17:11:21 ondansetron 4 mg disintegrat ing tablet 2021 022 [facility], [address] [place] [address], [id number], 2 17:11:22 levofloxaci n 500 mg tablet 2021 022 [email or web address] 0 [facility], [address] [place] [address], [id number], 17:02:44 loperamide 2 mg capsule 2021 022 [email or web address] 0 [facility], [address] [place] [address], [id number], 17:02:44 Patient TargetsNo targets recorded. Patient Instructions Encounter Date Encounter Id Patient Instructions Last Modified By Organization Details Last Modified Time 01/08/2022 [id number] infusion, normal saline* [email or web address] Not available 01/08/2022 12:03:59 orthostatic vitals* [email or web address] Not available 01/08/2022 12:03:59 Reason for Referral None Reported. Results Created Date Observation Date Name Description Value Unit Range Abnormal Flag Note LastModifiedBy Organization Detail LastModifiedTime 01/07/20 22 01/06/2022 cmp, whole blood + picco lo BUN 20 Not Available [facility] [address], [address] 01/06/2022 17:07:53 01/07/20 22 01/06/2022 cmp, whole blood + picco lo Ca 10.2 Not Available [facility] [address], [address] 01/06/2022 17:07:53 01/07/20 22 01/06/2022 cmp, whole blood + picco lo CI- normal Not Available [facility] [address], [address] 01/06/2022 17:07:53 01/07/20 22 01/06/2022 cmp, whole blood + picco lo CRE 1.2 Not Available [facility] [address], [address] 01/06/2022 17:07:53 01/07/20 22 01/06/2022 cmp, whole blood + picco lo GLU 115 Not Available [facility] [address], [address] 01/06/2022 17:07:53 01/07/20 22 01/06/2022 cmp, whole blood + picco lo K+ 4.7 Not Available [facility] [address], [address] 01/06/2022 17:07:53 01/07/20 22 01/06/2022 cmp, whole blood + picco lo Na+ 145 Not Available [facility] [address], [address] 01/06/2022 17:07:53 01/07/20 22 01/06/2022 cmp, whole blood + picco lo tCO2 29 Not Available [facility] [address], [address] 01/06/2022 17:07:53 01/07/20 22 01/06/2022 cmp, whole blood + picco lo TP 9 Not Available [facility] [address], [address] 01/06/2022 17:07:53 01/09/20 22 01/08/2022 cmp, whole blood + picco lo BUN 13 Not Available [facility] [address], [address] 01/08/2022 11:40:17 01/09/20 22 01/08/2022 cmp, whole blood + picco lo Ca 9.2 Not Available [facility] [address], [address] 01/08/2022 11:40:17 01/09/20 22 01/08/2022 cmp, whole blood + picco lo CI- normal Not Available [facility] [address], [address] 01/08/2022 11:40:17 01/09/20 22 01/08/2022 cmp, whole blood + picco lo CRE 1 Not Available [facility] [address], [address] 01/08/2022 11:40:17 01/09/20 22 01/08/2022 cmp, whole blood + picco lo GLU 104 Not Available [facility] [address], [address] 01/08/2022 11:40:17 01/09/20 22 01/08/2022 cmp, whole blood + picco lo K+ 4.2 Not Available [facility] [address], [address] 01/08/2022 11:40:17 01/09/20 22 01/08/2022 cmp, whole blood + picco lo Na+ 144 Not Available [facility] [address], [address] 01/08/2022 11:40:17 01/09/20 22 01/08/2022 cmp, whole blood + picco lo tCO2 27 Not Available [facility] [address], [address] 01/08/2022 11:40:17 01/09/20 22 01/08/2022 cmp, whole blood + picco lo TP 8.2 Not Available [facility] [address], [address] 01/08/2022 11:40:17 09/01/19 25 08/31/2024 rapid flu (A+B) Flu negati ve Not Available [facility] ed [address] [place] [address], [address] [place] [address] 08/31/2024 16:21:57 09/01/19 25 08/31/2024 rapid SARS CoV 2 Ag, QL IA, respi rator y speci men rapid SARS CoV 2 Ag, QL IA, respiratory specimen negati ve Not Available [facility] ed [address] [place] [address], [address] 08/31/2024 16:21:51 09/01/19 25 08/31/2024 elect pablo diogr am No observ ation record ed. [email or web address] [address], [address] 08/31/2024 17:18:01 Result Notes None recorded. Medical Equipment None Reported. Allergies Allergen ID Allergen Name Allergen Category Reaction Reaction Severity Criticality Documentation Date Start Date Code Code System Note Provider Name and Address Organization Details Recorded Time 690 Product containin g penicilli n (product) medicatio n Not available Not available Not available 01/06/2022 37582 8001 SNOMED Not Available [facility] - [facility] 4 03:46:17 691 Substance with sulfonami de structure and antibacte rial mechanism of action (substanc e) medicatio n Not available Not available Not available 01/06/2022 56702 8003 SNOMED Josselin Patel MD [address] [place] [address],[address], [place], [address], [facility] [employer] [facility] 2 15:03:26 692 contact metal agent environme nt Not available Not available Not available 01/06/2022 Josselin Patel MD [address], [place], [address], [employer] 2 15:03:36 693 morphine medicatio n Not available Not available Not available 01/06/2022 7052 RxNorm Josselin Patel MD [address], [place], [address], [employer] 2 15:24:39 Medications Name Sig Start Date [...] polyethylene glycol 3350 17 gram/dose oral powder [id number] G ORALLY ONCE FOR 1 DAY TAKE [...] [degF] 20 /min 129/80 mm[Hg] Not Available [employer] 5 16:12:34 Date Recorded Oxygen saturation Oxygen [...] Address Organization Details Last Updated DateTime 2 44617.4 16 g 18 /min 160.02 cm 80 /min 100 % 100 % 97.9 [degF] 97.9 [degF] 89027.4 16 g 100 % 100 % 160.02 cm Not Available [employer] - production 12:41:22 Date Recorded Respiratory rate Heart rate Systolic And Diastolic Systolic And Diastolic Provider Name and Address Organization Details Last Updated DateTime 01/08/2022 18 /min 80 /min 168/106 mm[Hg] 168/106 mm[Hg] Not Available [employer] [facility] [employer] - production 12:41:22 Social History None recorded. Functional Status None recorded. Mental Status None recorded. Family History Nothing Reported. Medical History No medical history recorded. Past Encounters Encounter ID Performer Location Encounter Start Date Encounter Closed Date Diagnosis/Indication Diagnosis SNOMED-CT Code Diagnosis ICD10 Code Diagnosis IMO Codes Diagnosis Note [id number] Josselin Patel MD [facility] [address] [place] [phone] 01/06/2022 15:02:35 03/08/2022 12:16:30 Diverticulitis 657754992 K57.92 concern for c. diff- yet less likely since only 3 stools today and no foul odor. Hydrated- will continue w/po hydration/ anti emetics/ anti diarrheal otc- will restart antibiotic today and x 3 more days- will increase flagyl to 3 x per day//patie nt unable to give stool spec while [facility] there in home.[facility] had no flagyl- did have Levaquin. May have APAP 650 mg q 6 hr prn. TO F/U PCP tomorrow. Pat aware if develops Temp > 100.4/ severe abd pain / syncope/ black or bloody emesis or stool- to go to the ER [id number] Josselin Patel MD [facility] [address] [place] [phone] 01/08/2022 11:23:28 03/08/2022 21:05:14 Diverticulitis 620870860 K57.92 Hydrated- will continue w/po hydrationa dvised [...] or stool- [place] go to [place] [id number] MIRIAM PATEL MD [facility] [address] [place] [phone] 08/31/2024 16:00:18 09/03/2024 12:24:05 Acute exacerbation of chronic obstructive pulmonary disease 922020353 J44.1 Evaluation in the field was performed by my assault amphibious vehicle crewman colleague, as noted above, I provided real-time [...] daily prescribed ; first dose given by assault amphibious vehicle crewman. - Empiric doxycyclin e started due to concern for possible bacterial superinfec tion. No fluoroquin olones since can exacerbate confusion in the elderly.- Tessalon Perles prescribed ; first dose given by assault amphibious vehicle crewman. - Encouraged oral hydration; advised daughter to [...] Bruce Member ID Guarantor Name 02/10/2024 1 [facility] - DOS PRIOR TO 2022 - DUAL ELIGIBLE (MEDICARE REPLACEMENT/ADV ANTAGE - HMO) Eddie Person [id number] Eddie Person 08/31/2024 1 [facility] - DOS ON OR AFTER 2022 - DUAL ELIGIBLE - SENIOR LIVING OPTIONS AND ONE CARE (MEDICARE REPLACEMENT/ADV ANTAGE - HMO) Eddie Person [id number] Eddie Person Notes Date Note Type Note [...] .................... .................... .................... .................... .................... .................... ............ Senior System Operator Note: Pt was diagnosed with diverticulitis end [...] .................... . Disposition: Fulfilled Josselin Patel MD [address] [place] [address],[address], [place], [address], [facility] - [employer] [facility] 01/06/2022 17:09:59 01/08/2022 text/html ROS as noted in the HPI HPI: PMH: diverticulitis allergies: PCN, Sulfacetamide member seen by [facility] a few days ago. He has hx of diverticulits, + loose stools, lower abd pain, afebrile. Currently taking cipro and flagyl, has follow up with PCP on Monday. Requesting [facility] visit today for ? dehydration and pain control. .................... .................... .................... .................... .................... .................... .................... . CRC Nursing Assessment: Comments: CRC RN DID NOT NEED ANY FURTHER INFO TO PROCESS VISIT SEGMD: Pat seen by [facility] 01/06/22- Bun 20/ cr. 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 Stools loose not watery/ not black/bloody- 3 yesterday- none so far today- c/o diffuse abd pain- no fever- has had no meds for pain otc- ? dehydrated- not light headed - no syncope............. .................... .................... .................... .................... .................... .................... ......... Senior System Operator Note: Sent to a call for a [...] soft, non-tender, non-distended, no pain with palpation. [facility] orders 1 Liter IV Fluids, POC CMP and Tylenol 500mg PO. IV access initiated, blood sample obtained. CMP results uploaded to [employer]. Pt reports feeling slightly better after IV fluids. BP:157/78, P:66; Pt advised on proper diet during flare. Pt advised to take Tylenol 650mg q6hrs as needed for pain. Pt advised to purchase loperamide, and follow up with PCP on Monday. Red flags discussed. Pt and daughter have no further questions. .................... .................... .................... .................... .................... .................... .................... . 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 [...] emergency treatment if needed -Charlene Tenorio RN Senior System Operator Organization Information for Steve Connelly Business Legal Name: [employer]. Address: [address] [place] [id number], Spa Manager/Esthetician: Johnathan PALMERIA No.: [id number] Senior System Operator POC Test Results from Steve Connelly Rapid [...] .................... .................... .................... .................... .................... .................... . 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 Arrival on scene, patient was [...] performed as noted and negative for all. [facility] consulted, provided orders for 12 Lead EKG, DuoNeb treatment, 100mg Doxycycline PO, 200mg Benzonatate PO, and 40mg Prednisone PO. 12 Lead EKG obtained as noted, Computer interpretation advised sinus rhythm, 12 lead uploaded to [employer] for remote interpretation. Above medications were administered as ordered without incident, patient rights verified. Duoneb treatment administered as well via nebulizer with reported improvement. [facility] advised prescription for Doxycycline and Benzonatate sent to preferred pharmacy. Red flags discussed with patient and daughter, advised to call 911 if patient worsens or does not improve within the next 24-48 hours per [facility]. SC12 clear. [facility] Lab Orders: rapid SARS CoV 2 Ag, QL IA, respiratory specimen: Performed rapid flu (A+B): Performed [facility] Medication Orders: ipratropium 0.5 mg-albuterol 3 mg (2.5 mg base)/3 mL nebulization soln: Administered prednisone 20 mg tablet: Administered benzonatate 100 mg capsule: Administered doxycycline hyclate 100 mg tablet: Administered .................... .................... .................... .................... .................... .................... .................... . [facility] Consulted: Miriam Patel .................... .................... .................... .................... .................... .................... .................... . Disposition: Fulfilled MIRIAM PATEL MD [address] [facility],[address], [place], [address], RAJINDER ERWIN 08/31/2024 17:36:31
--- OUTSIDE RECORDS SUMMARY | 2025-05-15 00:05 | XMS_ITS | Encounter Summary ---
Author Organization [employer] Address [address] [facility] [address] [place] [address] Care Team Providers Care Batch Freezer Operator Name Role Phone Phuong Cortes MD Primary Care Provider [phone] Reason for Visit * Reason Comments Med Refill Encounter Details Date Type Department Care Team (Late st Contact Info) Description 04/12/2023 Refill [facility] [address] [place], [place] [phone] Name, MD Gabriel [address] [place], [place] [phone] Social History Tobacco Use Types Packs/Day Years [...] Description 07/10/2025 11:00 AM EST Office Visit [facility] [address] [place], [place] [phone] Miranda Sherwood, OD [address] [place] [address] documented as of this encounter Visit Diagnoses Not on filedocumented in this encounter Care Teams Batch Freezer Operator Relationship Specialty Start Date End Date Phuong Cortes MD [address] [place] [address] PCP - General Family Medicine 02/04/21 [facility] 04/08/21 10/17/24 [employer] 09/11/24 documented as of this encounter
== END 2025-05-14 13:16 | disposition home or self-care (01) ==
LOC: HO.HSM 12:42
PROVIDERS: PCP General Practice; Referring Provider General Practice; Visit Provider Registered Nurse
DX: M54.2 Cervicalgia (principal); G89.29 Other chronic pain; M43.6 Torticollis
CPT/HCPCS: 99214

== ENCOUNTER → 2025-05-14 12:42 | Outpatient (BNVA) | payer OTHER, SELFPAY | PROVIDERS: PCP General Practice; Referring Provider General Practice; Visit Provider Registered Nurse | DX: M54.2 Cervicalgia (principal); M43.6 Torticollis; G89.29 Other chronic pain | CPT/HCPCS: 99212 ==

== ENCOUNTER 2025-06-12 12:39 | Outpatient (REF) | payer OTHER, SELFPAY ==
--- NOTE | ~2025-06-12 | CT_ITS ---
EXAMINATION: CT CHEST WITHOUT CONTRAST CLINICAL INFORMATION: Abnormal findings on diagnostic imaging of other specified body part. COMPARISON: No prior CT available. Correlation made with chest radiograph 08/25/2024, and 07/31/2024. TECHNIQUE: Multidetector volumetric CT imaging of the chest was done. Axial MIP volume rendering provided. Sagittal and coronal reformatted images were obtained. This CT examination was performed using dose optimization techniques as appropriate, variously including the following: *Automated exposure control *Adjustment of mA and/or kV according to patient size (this includes techniques or standardized protocols for targeted exams where dose is matched to indication/reason for exam; i.e. extremities or head) *Use of iterative reconstruction technique FINDINGS: LUNGS: There is a spiculated nodule/mass in the right lower lobe posterior costophrenic sulcus measuring 2.0 x 2.6 x 1.2 cm (AP, TRV, CC). (Series 5, image 112; series 8 image 124). This is highly suspicious given the appearance. There is a 4 mm nodule in the anterior left upper lobe (series 5, image 30). There is a 2 mm nodule in the lateral right upper lobe (series 5, image 42). There is a 2 mm nodule in the lateral right middle lobe (series 5, image 84). There are scattered pulmonary nodules in the right lower lobe, largest measuring 4 mm (series 5, image 106). There is a 4 mm nodule in the posterior left upper lobe (series 5, image 62). There are additional micronodules in the post. Inferior left lower lobe. There is a minimal scarring or atelectasis in the medial right middle lobe, and bilateral medial lower lobes, as well as the lingula. There is no effusion or pneumothorax. MEDIASTINUM: No abnormal mediastinal lymph nodes are present. No masses. Imaged thyroid is normal. The aorta is minimally calcified but normal in caliber and course. There is no aneurysm. The pulmonary trunk is normal. There is mild cardiac enlargement. There is no pericardial effusion. There is a moderate to large paraesophageal hiatus hernia present. There is thickening of the most distal esophagus present (series 3, image 37). CORONARY ARTERY CALCIFICATION: Moderate. PLEURA: There is no pleural effusion. No pleural mass or thickening. AXILLA/CHEST WALL: There is no abnormal lymphadenopathy present. There is moderate male gynecomastia left greater than right. UPPER ABDOMEN: There is a calcified granuloma in the medial right liver. Subtle densities in the dependent gallbladder may represent stones. There is a phrygian cap of the gallbladder. There is mild fatty atrophy of the pancreas. Normal adrenal glands. Imaged bowel structures appear normal. OSSEOUS STRUCTURES: There is no suspicious lytic or blastic bone lesion evident. There are mild to moderate degenerative changes of the spine noted. CT/CT chest wo IV con IMPRESSION: 1. There is a spiculated nodule in the right lower lobe measuring 2.0 x 2.6 x 1.2 cm, suspicious. Further evaluation with PET/CT and/or biopsy is recommended. 2. There are numerous additional scattered pulmonary nodules measuring up to 4 mm as detailed. 3. There is no abnormal lymphadenopathy. 4. There is a large paraesophageal hiatus hernia. There is thickening of the distal esophagus suggesting inflammation. Neoplasm is not excluded given the appearance. 5. There are additional ancillary findings as discussed in the body of the report. Please see above. Electronically signed by: Lamont Moon MD 06/12/2025 02:00 PM ION
--- OUTSIDE RECORDS SUMMARY | 2025-06-12 16:28 | XMS_ITS | Patient Health Record ---
Author Organization [facility] Address [address] [place] [address] Care Team Providers Care Metal Bonding Assembler Name Role Phone Erlin Glover Unavailable [phone] Reason For Referral No Information Plan Of Treatment No Information
== END 2025-06-12 12:40 | disposition home or self-care (01) ==
LOC: HO.CT 12:39
PROVIDERS: PCP General Practice; Visit Provider Nurse Practitioner Family
DX: R93.89 Abnormal findings on diagnostic imaging of other specified body structures (principal)
CPT/HCPCS: 71250

== ENCOUNTER → 2025-06-12 12:41 | Outpatient (BNV) | payer OTHER, SELFPAY | PROVIDERS: PCP General Practice; Visit Provider Radiology Diagnostic Radiology | DX: R91.1 Solitary pulmonary nodule (principal); K44.9 Diaphragmatic hernia without obstruction or gangrene | CPT/HCPCS: 71250 ==